=== PATIENT | male | born 1955 | race Hispanic/Latino ===

== ENCOUNTER 2017-04-10 12:23 | Day surgery (SDC) | payer BC ==
[2017-04-10 12:52] LABS: BASO # 0.02 K/mm3 (0.0-2.0); BASO % 0.3 % (0.0-3.0); EOS # 0.2 (0.0-0.7); EOS % 2.1 % (1.5-5.0); GRAN # 6.45 (1.4-6.5); GRAN % 81.1 % (50.0-68.0); HEMOGLOBIN 15.8 g/dL (14.0-18.0); LYMPH # 0.7 (1.2-3.4); LYMPH % 8.3 % (22.0-35.0); MEAN CELL VOLUME 93.9 fl (80.0-105.0); MEAN CORPUSCULAR HEMOGLOBIN 33.3 pg (25.0-35.0); MEAN CORPUSCULAR HGB CONC 35.4 g/dl (31.0-37.0); MEAN PLATELET VOLUME 10.7 fl (7.0-11.0); MONO # 0.7 (0.1-0.6); MONO % 8.2 % (1.0-6.0); RBC 4.75 10^6/uL (3.5-6.1); RED CELL DISTRIBUTION WIDTH 13.9 % (11.5-14.5)
[2017-04-10 12:59] VITALS: BMI 29.8
[2017-04-10 13:04] LABS: BLOOD UREA NITROGEN 21 mg/dL (7-21); GFR AFRICAN-AMERICAN > 60; GFR NON-AFRICAN AMERICAN 52
[2017-04-10 13:07] LABS: INR 1.05 (0.93-1.08); PARTIAL THROMBOPLASTIN TIME 33.5 Seconds (25.1-36.5); PROTHROMBIN TIME 12.1 SECONDS (9.4-12.5)
[2017-04-10 13:09] VITALS: RESP 20; TEMP 97; O2SAT 98
--- NOTE | 2017-04-10 16:11 | US ---
PROCEDURE: Ultrasound guided paracentesis. HISTORY: Alcoholic cirrhosis Recurrent ascites with abdominal pain and distension. PHYSICIAN(S): Lamine Man MD. TECHNIQUE: The relative risks and indications for the procedure were explained to the patient and informed written consent obtained. Sonography of the abdomen was performed in a supine position. This revealed a large amount of non-loculated ascites, greatest in the right lower quadrant. A puncture site was selected and the area was prepped and draped in the usual sterile fashion. 1% Xylocaine was used to anesthetize the skin and soft tissues. A 7 Anguillan paracentesis catheter was trocared into the right lower quadrantand 72132 cc of clear, straw-colored fluid aspirated. No labs were sent. IMPRESSION: Ultrasound-guided paracentesis in the right lower quadrant. 12,300 cc of fluid were aspirated. The frequency in volume of fluid encounter, a TIPS procedure should be considered for better control of the patient's ascites
[2017-04-10 16:52] VITALS: PULSE 92
[2017-04-10 17:00] VITALS: BP 103/65
== END 2017-04-10 17:00 | disposition home or self-care (01) ==
LOC: OPSURG 12:23
PROVIDERS: ATTEND Radiology Vascular & Interventional Radiology
DX: K70.31 Alcoholic cirrhosis of liver with ascites (principal)

== ENCOUNTER 2017-04-30 11:11 | Day surgery (SDC) | payer BC ==
[2017-04-30 12:18] LABS: BASO # 0.03 K/mm3 (0.0-2.0); BASO % 0.4 % (0.0-3.0); EOS # 0.3 (0.0-0.7); EOS % 3.9 % (1.5-5.0); GRAN # 5.7 (1.4-6.5); GRAN % 74.6 % (50.0-68.0); HEMOGLOBIN 15.4 g/dL (14.0-18.0); LYMPH # 0.8 (1.2-3.4); LYMPH % 10.9 % (22.0-35.0); MEAN CELL VOLUME 94.4 fl (80.0-105.0); MEAN PLATELET VOLUME 10.9 fl (7.0-11.0); MONO # 0.8 (0.1-0.6); MONO % 10.2 % (1.0-6.0); RBC 4.66 10^6/uL (3.5-6.1); WHITE BLOOD COUNT 7.6 10^3/ul (4.5-11.0)
[2017-04-30 12:21] VITALS: RESP 18; O2SAT 100
[2017-04-30 12:41] LABS: INR 1.07 (0.93-1.08); PARTIAL THROMBOPLASTIN TIME 32.5 Seconds (25.1-36.5); PROTHROMBIN TIME 12.3 SECONDS (9.4-12.5)
[2017-04-30 14:56] VITALS: TEMP 98.3
[2017-04-30 15:15] VITALS: BP 118/77; PULSE 84
--- NOTE | 2017-04-30 17:29 | US ---
PROCEDURE: Ultrasound guided paracentesis. HISTORY: Alcoholic cirrhosis Recurrent ascites with abdominal pain and distension. Requires frequent paracentesis PHYSICIAN(S): Lamine Man MD. TECHNIQUE: The relative risks and indications for the procedure were explained to the patient and informed written consent obtained. Sonography of the abdomen was performed in a supine position. This revealed a large amount of non-loculated ascites, greatest in the right lower quadrant. A puncture site was selected and the area was prepped and draped in the usual sterile fashion. 1% Xylocaine was used to anesthetize the skin and soft tissues. A 7 Swedish paracentesis catheter was trocared into the right lower quadrantand 27472 cc of clear, straw-colored fluid aspirated. No labs were sent IMPRESSION: Ultrasound-guided paracentesis in the right lower quadrant. 55559 cc of fluid were aspirated.
== END 2017-04-30 15:40 | disposition home or self-care (01) ==
LOC: SDS 11:11
PROVIDERS: ATTEND Radiology Vascular & Interventional Radiology
DX: K70.31 Alcoholic cirrhosis of liver with ascites (principal)

== ENCOUNTER 2017-05-15 10:17 | Day surgery (SDC) | payer BC ==
[2017-05-15 10:46] LABS: BASO # 0.03 K/mm3 (0.0-2.0); BASO % 0.4 % (0.0-3.0); EOS # 0.5 (0.0-0.7); GRAN # 5.72 (1.4-6.5); GRAN % 70.7 % (50.0-68.0); HEMOGLOBIN 15.8 g/dL (14.0-18.0); LYMPH # 1.1 (1.2-3.4); LYMPH % 13.3 % (22.0-35.0); MEAN CELL VOLUME 94.2 fl (80.0-105.0); MEAN CORPUSCULAR HEMOGLOBIN 32.9 pg (25.0-35.0); MEAN PLATELET VOLUME 10.5 fl (7.0-11.0); MONO # 0.8 (0.1-0.6); MONO % 9.6 % (1.0-6.0); RBC 4.8 10^6/uL (3.5-6.1); RED CELL DISTRIBUTION WIDTH 13.8 % (11.5-14.5); WHITE BLOOD COUNT 8.1 10^3/ul (4.5-11.0)
[2017-05-15 10:54] VITALS: RESP 18; O2SAT 97
[2017-05-15 10:58] LABS: CALCIUM 10.2 mg/dL (8.4-10.5)
[2017-05-15 11:01] LABS: INR 1.03 (0.93-1.08); PARTIAL THROMBOPLASTIN TIME 31.8 Seconds (25.1-36.5); PROTHROMBIN TIME 11.9 SECONDS (9.4-12.5)
[2017-05-15 13:58] VITALS: TEMP 98.3
--- NOTE | 2017-05-15 14:13 | US ---
PROCEDURE: Ultrasound guided paracentesis. HISTORY: Alcoholic cirrhosis. Recurrent ascites with abdominal pain and distension. Needs repeat paracentesis. PHYSICIAN(S): Lamine Man MD. TECHNIQUE: The relative risks and indications for the procedure were explained to the patient and informed written consent obtained. Sonography of the abdomen was performed in a supine position. This revealed a moderate to large amount of non-loculated ascites, greatest in the right lower quadrant. A puncture site was selected and the area was prepped and draped in the usual sterile fashion. 1% Xylocaine was used to anesthetize the skin and soft tissues. A 7 Italian paracentesis catheter was trocared into the right lower quadrantand 35512 cc of clear, straw-colored fluid aspirated. No labs were sent IMPRESSION: Ultrasound-guided paracentesis in the right lower quadrant. 43458 cc of fluid were aspirated.
[2017-05-15 14:29] VITALS: BP 95/58; PULSE 100
== END 2017-05-15 15:35 | disposition home or self-care (01) ==
LOC: OPSURG 10:17
PROVIDERS: ATTEND Radiology Vascular & Interventional Radiology
DX: K70.31 Alcoholic cirrhosis of liver with ascites (principal)

== ENCOUNTER 2017-11-13 14:44 | Inpatient (IN) | payer BC ==
[2017-11-13 14:52] VITALS: BMI 24.4
[2017-11-13] MEDS ORDERED: Sodium Chloride 0.9% 1,000 ML IV STA (15:43)
[2017-11-13] MEDS ORDERED: Oxycodone/Acetaminophen 5/325 mg Tab PO STA (15:43)
--- NOTE | 2017-11-13 16:03 | RAD ---
Date of service: 11/13/2017 HISTORY: sob COMPARISON: 06/12/2016 FINDINGS: LUNGS: There is some linear scarring or atelectasis in the left lower lobe. The lungs are otherwise clear PLEURA: No significant pleural effusion identified, no pneumothorax apparent. CARDIOVASCULAR: Normal. OSSEOUS STRUCTURES: Sternal wires VISUALIZED UPPER ABDOMEN: Normal. OTHER FINDINGS: None. IMPRESSION: No active disease.
[2017-11-13 16:04] LABS: BASO # 0.01 K/mm3 (0.0-2.0); BASO % 0.1 % (0.0-3.0); EOS # 0.1 (0.0-0.7); EOS % 0.6 % (1.5-5.0); GRAN # 13.97 (1.4-6.5); GRAN % 83.6 % (50.0-68.0); HEMOGLOBIN 13.6 g/dL (14.0-18.0); LYMPH % 5.8 % (22.0-35.0); MEAN CELL VOLUME 91.4 fl (80.0-105.0); MEAN CORPUSCULAR HEMOGLOBIN 32.3 pg (25.0-35.0); MEAN CORPUSCULAR HGB CONC 35.3 g/dl (31.0-37.0); MEAN PLATELET VOLUME 8.9 fl (7.0-11.0); MONO # 1.7 (0.1-0.6); MONO % 9.9 % (1.0-6.0); RBC 4.21 10^6/uL (3.5-6.1); RED CELL DISTRIBUTION WIDTH 16.5 % (11.5-14.5); WHITE BLOOD COUNT 16.7 10^3/ul (4.5-11.0)
[2017-11-13 16:12] LABS: ALB/GLOB RATIO 0.7 (1.1-1.8); ALBUMIN 3.5 g/dL (3.0-4.8); ALT/SGPT 25 U/L (7-56); AST/SGOT 39 U/L (17-59); BLOOD UREA NITROGEN 12 mg/dL (7-21); CALCIUM 9.3 mg/dL (8.4-10.5); GFR NON-AFRICAN AMERICAN > 60
[2017-11-13 16:24] LABS: B-TYPE NATRIURETIC PEPTIDE 290 pg/mL (0-450); TROPONIN I < 0.01 ng/mL
--- NOTE | 2017-11-13 16:41 | RAD ---
Date of service: 11/13/2017 PROCEDURE: Soft tissue neck HISTORY: left sided neck swelling COMPARISON: TECHNIQUE: Two views FINDINGS: There is no retropharyngeal soft tissue swelling. The airway is patent. IMPRESSION: Negative study
--- NOTE | 2017-11-13 16:42 | ED PDOC ---
Arrival/HPI - General Chief Complaint: Lower Extremity Problem/Injury Time Seen by Provider: 11/13/17 15:00 Historian: Patient, Spouse () - History of Present Illness Narrative History of Present Illness (Text): 11/13/17 17:00 A 62 y/o M w/ h/o liver disease( s/p tips procedure last week) presents to the emergency department complaining of generalized weakness for the past 3 days. Per , patient has been experiencing intermittent fever/chills, decreased PO intake of fluids/solids, odynophagia, and left-side neck swelling that has increased in size over the last [address] Zendejas, who sent patient a prescription of Amoxicillin, which patient has taken 1 dose of yesterday. He reports shortness of breath a rest. Patient denies any abdominal pain, hematemesis, chest pain, back pain, bilateral leg swelling, or any other complaints at this time. PMD: Dr. Zendejas Past Medical History - Provider Review Nursing Documentation Reviewed: Yes - Travel History Have you recently traveled outside [place] w/in the past 3 mons?: No - Infectious Disease Hx of Infectious Diseases: None - Cardiac Hx [place]: Yes Hx Pacemaker: No Other/Comment: aortic valve. open heart surgery - Pulmonary Hx Respiratory Disorders: No - Neurological Hx Paralysis: No - Endocrine/Metabolic Hx Diabetes Mellitus Type 2: Yes - Hematological/Oncological Hx Blood Transfusions: No - Musculoskeletal/Rheumatological Hx Musculoskeletal Disorders: Yes - Gastrointestinal Hx Gastrointestinal Ulcer: Yes Other/Comment: Liver problems - Psychiatric Hx Physical Abuse: No Hx Substance Use: No - Surgical History Hx Coronary Artery Bypass Graft: Yes Hx Open Heart Surgery: Yes Hx Orthopedic Surgery: Yes (L knee sx) Hx Valve Replacement: Yes (aortic) Other/Comment: TIPS - Anesthesia Hx Anesthesia: Yes Hx Anesthesia Reactions: No Hx Malignant Hyperthermia: No - Suicidal Assessment Feels Threatened In Home Enviroment: No Family/Social History - Physician Review Nursing Documentation Reviewed: Yes Family/Social History: No Known Family HX Smoking Status: Former Smoker Hx Alcohol Use: No Hx Substance Use: No Allergies/Home Meds Allergies/Adverse Reactions: Allergies No Known Allergies Allergy (Verified 11/13/17 21:16) Home Medications: Home Meds Medication Instructions Recorded Confirmed Aspirin [Adult Low Dose Aspirin EC] 81 mg PO DAILY 06/12/16 11/13/17 Allopurinol [Zyloprim] 100 mg PO DAILY 04/10/17 11/13/17 Alprazolam [Xanax] 0.5 mg PO Q12H PRN 04/10/17 11/13/17 Pantoprazole [Protonix] 40 mg PO DAILY 04/10/17 11/13/17 metFORMIN [glucOPHAGE] 500 mg PO DAILY 04/10/17 11/13/17 Lactulose [Enulose] 20 g PO BID 11/13/17 11/13/17 Rifaximin [Xifaxan] 1 tab PO Q12H 11/13/17 11/13/17 Review of Systems - Physician Review All systems were reviewed & negative as marked: Yes - Review of Systems Constitutional: Fevers, Night Sweats, Other (generalized weakness) ENT: Other (left-side neck swelling that has increased in size for the past couple of days; difficluty swallowing.) Respiratory: SOB (at rest) Cardiovascular: absent: Chest Pain Gastrointestinal: Appetite Changes (decrease in PO intake of fluids/solids). absent: Abdominal Pain, Hematemesis Musculoskeletal: absent: Back Pain, Other (no leg swelling) Physical Exam Vital Signs Pulse Pulse Resp BP Pulse Ox 11/13/17 21:17 92 H 96 H 18 129/76 11/13/17 19:15 92 H 18 129/76 97 11/13/17 16:45 96 H 18 94/70 L 98 Temperature: Afebrile Blood Pressure: Normal Pulse: Tachycardic Respiratory Rate: Normal Appearance: Positive for: Well-Appearing, Non-Toxic, Uncomfortable Pain Distress: Moderate Mental Status: Positive for: Alert and Oriented X 3 - Systems Exam Head: Present: Atraumatic, Normocephalic Pupils: Present: PERRL Extroacular Muscles: Present: EOMI Conjunctiva: Present: Normal Mouth: Present: Moist Mucous Membranes Neck: Present: Other (left-side neck mass tender to palpation, no erythema, not mobile) Respiratory/Chest: Present: Clear to Auscultation (bilaterally), Good Air Exchange. No: Respiratory Distress, Accessory Muscle Use, Wheezes, Rales, Rhonchi Cardiovascular: Present: Tachycardic Abdomen: No: Tenderness, Distention, Peritoneal Signs Back: Present: Normal Inspection Upper Extremity: Present: Normal Inspection. No: Cyanosis, Edema Lower Extremity: Present: Normal Inspection. No: Edema Neurological: Present: GCS=15, CN II-XII Intact, Speech Normal Skin: Present: Warm, Dry, Normal Color. No: Rashes Psychiatric: Present: Alert, Oriented x 3, Normal Insight, Normal Concentration Medical Decision Making ED Course and Treatment: 11/13/17 16:45 Impression: 62 year old male with generalized weakness and left-side neck swelling that has been increasing in size for the past couple of days. Plan: -- EKG -- Chest X-ray -- Soft Tissue Neck X-Ray -- Neck Soft Tissue CT -- Zosyn -- IV Fluids -- Percocet -- Labs -- Rapid Strep Test -- Urinalysis -- Reassess and disposition Prior Visits: Notes and results from previous visits were reviewed. Progress Notes: 11/13/2017 16:02 Chest X-ray IMPRESSION: No active disease. Dictator: Grant Zamora MD 11/13/2017 16:39 Soft Tissue Neck X-Ray IMPRESSION: Negative study. Dictator: Grant Zamora MD 11/13/17 17:08 Labs reviewed with elevated potassium and leukocytosis. Zosyn ordered. CT neck pending. Spoke to Dr. Yen(PCP) who accepts patient onto his service. - Lab Interpretations Lab Results: 11/13/17 15:40 11/13/17 15:40 Lab Results 11/13/17 15:49: POC Glucose (mg/dL) 226 H 11/13/17 15:40: Sodium 132, Potassium 5.3 H, Chloride 95 L, Carbon Dioxide 24, Anion Gap 18, BUN 12, Creatinine 0.8, Est GFR ( Amer) > 60, Est GFR (Non- Af Amer) > 60, Random Glucose 212 H, Calcium 9.3, Total Bilirubin 2.7 H, AST 39 , ALT 25, Alkaline Phosphatase 174 H, Troponin I < 0.01, NT-Pro-B Natriuret Pep 290, Total Protein 8.4 H, Albumin 3.5, Globulin 4.9, Albumin/Globulin Ratio 0.7 L 11/13/17 15:40: WBC 16.7 H D, RBC 4.21, Hgb 13.6 L D, Hct 38.5 L, MCV 91.4, MCH 32.3, MCHC 35.3, RDW 16.5 H, Plt Count 141, MPV 8.9, Gran % 83.6 H, Lymph % ( Auto) 5.8 L, [place] % (Auto) 9.9 H, Eos % (Auto) 0.6 L, Baso % (Auto) 0.1, Gran # 13.97 H, Lymph # (Auto) 1.0 L, [place] # (Auto) 1.7 H, Eos # (Auto) 0.1, Baso # ( Auto) 0.01, ESR 104 H - RAD Interpretation Radiology Orders: 11/13/17 15:13 CHEST PORTABLE [RAD] Stat 11/13/17 15:50 NECK SOFT TISSUE [RAD] Stat - Medication Orders Current Medication Orders: Discontinued Medications Albuterol Sulfate (Albuterol 0.083% Inhal Sona (2.5 Mg/3 Ml) Ud) 2.5 mg INH STAT STA Stop: 11/13/17 18:37 Last Admin: 11/13/17 19:16 Dose: 2.5 mg Diphenhydramine HCl (Benadryl) 25 mg PO ONCE ONE Stop: 11/13/17 21:41 Sodium Chloride (Sodium Chloride 0.9%) 1,000 mls @ 999 mls/hr IV .Q1H1M STA Stop: 11/13/17 16:43 Last Admin: 11/13/17 16:03 Dose: 999 mls/hr eMAR Start Stop Document 11/13/17 16:03 GMD (Rec: 11/13/17 16:03 GMD [id number]) Intravenous Solution Start Date 11/13/17 Start Time 16:03 End Date 11/13/17 End time 17:03 Total Infusion Time 60 Piperacillin Sod/Tazobactam Sod (Zosyn 4.5 Gm In Ns 100ml) 4.5 gm in 100 mls @ 200 mls/hr IVPB STAT STA PRN Reason: Protocol Stop: 11/13/17 17:32 Last Admin: 11/13/17 18:38 Dose: 200 mls/hr eMAR Start Stop Document 11/13/17 18:38 GMD (Rec: 11/13/17 18:38 GMD [id number]) Intravenous Solution Start Date 11/13/17 Start Time 18:38 End Date 11/13/17 End time 19:08 Total Infusion Time 30 Calcium Gluconate 1,000 mg/ (Sodium Chloride) 110 mls @ 110 mls/hr IVPB ONCE ONE Stop: 11/13/17 19:44 Last Admin: 11/13/17 19:30 Dose: 110 mls/hr eMAR Start Stop Document 11/13/17 19:30 AD (Rec: 11/13/17 19:30 AD [id number] Intravenous Solution Start Date 11/13/17 Start Time 19:30 Ibuprofen (Motrin Tab) 400 mg PO ONCE ONE Stop: 11/13/17 20:31 Oxycodone/Acetaminophen (Percocet 5/325 Mg Tab) 1 tab PO STAT STA Stop: 11/13/17 15:44 Last Admin: 11/13/17 16:03 Dose: 1 tab MAR Pain Assessment Document 11/13/17 16:03 GMD (Rec: 11/13/17 16:03 GMD [id number]) Pain Reassessment Is this a pain reassessment? No Sodium Bicarbonate (Sodium Bicarbonate 8.4% (50 Meq) Syringe) 50 meq IVP ONCE ONE Stop: 11/13/17 18:37 Last Admin: 11/13/17 19:16 Dose: 50 meq IVP Administration Document 11/13/17 19:16 AD (Rec: 11/13/17 19:17 AD [id number] Charges for Administration # of IVP Administrations 1 - Scribe Statement The provider has reviewed the documentation as recorded by the Lenora Martin Provider Scribe Provider Scribe Attestation: All medical record entries made by the Berylibamy were at my direction and personally dictated by me. I have reviewed the chart and agree that the record accurately reflects my personal performance of the history, physical exam, medical decision making, and the department course for this patient. I have also personally directed, reviewed, and agree with the discharge instructions and disposition. Disposition/Present on Arrival - Present on Arrival Any Indicators Present on Arrival: No History of DVT/PE: No History of Uncontrolled Diabetes: No Urinary Catheter: No History of Decub. Ulcer: No History Surgical Site Infection Following: None - Disposition Have Diagnosis and Disposition been Completed?: Yes Diagnosis: Neck swelling, Shortness of breath, Hyperkalemia Disposition: HOSPITALIZED Disposition Time: 18:30 Patient Plan: Admission Patient Problems: Current Active Problems Problem Status Onset Neck swelling Acute Shortness of breath Acute Hyperkalemia Acute Condition: FAIR
[2017-11-13] MEDS ORDERED: Piperacill/Tazo 4.5gm in NS 4.5 GM/100 ML BAG IVPB STA (17:03)
[2017-11-13 17:54] LABS: URINE BILIRUBIN NEGATIVE (NEGATIVE); URINE BLOOD LARGE (NEGATIVE); URINE GLUCOSE (UA) 250 mg/dL (NEGATIVE); URINE LEUKOCYTE ESTERASE NEGATIVE Leu/uL (NEGATIVE); URINE PROTEIN 30 mg/dL (<30 mg/dL)
[2017-11-13 17:55] LABS: URINE APPEARANCE CLEAR (CLEAR); URINE COLOR DARK YELLOW (YELLOW)
[2017-11-13 18:02] LABS: URINE AMORPHOUS SEDIMENT FEW; URINE BACTERIA MANY (NEG); URINE RBC 25 - 30 /hpf (0-2)
[2017-11-13] MEDS ORDERED: Sodium Bicarbonate (8.4%) 50 Meq Syringe IVP ONE ×2 (18:36→19:12)
[2017-11-13] MEDS ORDERED: Albuterol 0.083% Inhal Sol (2.5 mg/3 mL) UD INH STA (18:36)
[2017-11-13] MEDS: Dextrose 5%/0.45% NS 1,000 ML IV SCH (23:02)
[2017-11-13] MEDS ORDERED: MethylPREDNISolone 40 mg Vial IVP STA (23:33)
[2017-11-14] MEDS: Piperacill/Tazo 4.5gm in NS 4.5 GM/100 ML BAG IVPB SCH ×2 (00:55→05:40)
[2017-11-14 06:40] LABS: EOS % 0.1 % (1.5-5.0); GRAN # 11.21 (1.4-6.5); GRAN % 93.8 % (50.0-68.0); HEMOGLOBIN 12.2 g/dL (14.0-18.0); LYMPH # 0.5 (1.2-3.4); LYMPH % 4.1 % (22.0-35.0); MEAN CELL VOLUME 92.2 fl (80.0-105.0); MEAN CORPUSCULAR HEMOGLOBIN 31.9 pg (25.0-35.0); MEAN CORPUSCULAR HGB CONC 34.6 g/dl (31.0-37.0); MEAN PLATELET VOLUME 9.5 fl (7.0-11.0); MONO # 0.2 (0.1-0.6); PLATELET COUNT 105 10^3/uL (120.0-450.0); RBC 3.83 10^6/uL (3.5-6.1); RED CELL DISTRIBUTION WIDTH 16.4 % (11.5-14.5)
[2017-11-14 06:50] LABS: ALB/GLOB RATIO 0.6 (1.1-1.8); ALBUMIN 2.5 g/dL (3.0-4.8); ALT/SGPT 26 U/L (7-56); AST/SGOT 27 U/L (17-59); BLOOD UREA NITROGEN 14 mg/dL (7-21); CALCIUM 8.7 mg/dL (8.4-10.5); GFR NON-AFRICAN AMERICAN > 60; URIC ACID 2.3 mg/dL (3.5-8.5)
[2017-11-14] MEDS: Insulin Reg-MEDIUM-Coverage SC SCH ×4 (07:54→22:00)
[2017-11-14] MEDS: Pantoprazole 40 mg EC Tab PO SCH (07:55)
[2017-11-14] MEDS: Dextrose 5%/0.45% NS 1,000 ML IV SCH ×2 (07:57→15:00)
[2017-11-14 09:17] LABS: LYMPHOCYTE 1 % (22.0-35.0); MONOCYTE 1 % (1.0-6.0); NEUTROPHIL 98 % (50.0-70.0); PLATELET ESTIMATE LOW (NORMAL)
[2017-11-14 09:32] LABS: ERYTHROCYTE SEDIMENTATION RATE 98 mm/hr (0.00-15.0)
[2017-11-14] MEDS: Meropenem IV 1 gm in NS 50 ML IVPB SCH ×3 (10:16→22:35)
--- NOTE | 2017-11-14 10:39 | CARD ---
APPROVED REPORT Date of service: 11/13/2017 EKG Measurement Heart [id number] <Conclusion> Sinus tachycardia Small inferior q waves
--- NOTE | 2017-11-14 12:46 | CT ---
Date of service: 11/13/2017 PROCEDURE: CT NECK WITHOUT CONTRAST HISTORY: neck swelling w/ odyophagia COMPARISON: None available. TECHNIQUE: CT of the neck without intravenous contrast. Coronal and sagittal reformats generated. Radiation dose: DLP 433 mGy-cm This CT exam was performed using one or more of the following dose reduction techniques: Automated exposure control, adjustment of the mA and/or kV according to patient size, and/or use of iterative reconstruction technique. FINDINGS: NASOPHARYNX: Unremarkable. SUPRAHYOID NECK: There is soft tissue swelling and edema in the left parapharyngeal space adjacent to the left carotid and jugular vein. The study is limited without IV contrast. This could be neoplastic or infectious in origin. Clinical correlation is suggested INFRAHYOID NECK: Unremarkable larynx, hypopharynx, and supraglottic space. Vocal cords intact. MASS: None. GLANDS: Parotid and submandibular glands unremarkable. Normal size thyroid gland, without nodule. LYMPH NODES: Normal. No lymphadenopathy. CERVICAL SPINE: No fracture or focal lesion. OTHER FINDINGS: The report concurs with the preliminary [facility] report IMPRESSION: There is soft tissue swelling and edema in the left parapharyngeal space adjacent to the left carotid and jugular vein. The study is limited without IV contrast. This could be neoplastic or infectious in origin. Clinical correlation is suggested
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
--- NOTE | 2017-11-14 19:26 | CON ---
Copied To: Janak Dallas MD Attending MD: Janak Dallas MD DATE: 11/14/2017 LOCATION: The patient seen in room 265, bed 1. CHIEF COMPLAINT: Neck pain and difficulty swallowing times several days. HISTORY OF PRESENT ILLNESS: This is a 62-year-old male with a history of diabetes and hypertension, and coronary artery disease, aortic valve replacement, coronary artery bypass graft; the patient also with a knee surgery, alcoholic liver disease and cirrhosis; the patient also had a TIPS procedure in the past, awaiting for a liver transplant, who was admitted with neck pain and difficulty swallowing times almost a week duration. He is also complaining of shortness of breath but no chest pain. The patient was seen in the emergency room by Dr. Rex Land, who states the patient has a chief complaint of lower extremity injury. Patient with liver disease and status post TIPS procedure, presented in emergency, generalized weakness, experiencing intermittent fevers and chills, although he denies that to me. The patient's told the emergency room doctor as he is having difficulty swallowing and left-sided neck pain in the last several days, the patient told me was over a week. The patient was given amoxicillin as outpatient, taken the dose day before admission. He is complaining of shortness of breath. REVIEW OF SYSTEMS: A 12-point review of systems is performed. PAST MEDICAL HISTORY: Significant for hypertension, diabetes, coronary artery disease, alcoholic liver disease, liver cirrhosis. PAST SURGICAL HISTORY: Significant for aortic valve replacement, coronary artery bypass graft, knee surgery, and a TIPS procedure. ALLERGIES: THE PATIENT HAS NO KNOWN ALLERGIES. MEDICATIONS AT HOME: Include aspirin, allopurinol, Xanax, Protonix, metformin, rifaximin, and lactulose. PHYSICAL EXAMINATION: GENERAL: He is in bed, in no acute distress. However, chronically ill, debilitated. VITAL SIGNS: Temperature is 99 with a heart rate of 110, respiratory rate is 20, blood pressure is 90/50. HEENT: There is left-sided neck pain and swelling and oral cavity appears to be normal. There is no pharyngitis. No erythema. Pupils are equally reactive to light and accommodation. Extraocular muscles intact. Conjunctiva is pink. Sclerae is nonicteric. NECK: Supple. LUNGS: Have decreased breath sounds. HEART: Normal S1, S2. ABDOMEN: Soft, nontender. LABORATORY EXAMINATION: Reveals a white count of 16,700, hemoglobin of 13, platelets of 141. Sed rate is 104. Chemistries reveals a BUN of 12, creatinine of 0.8, alk phos is 174. Urinalysis is noted 1 to 3 wbc's. Serology is for group A strep is negative in rapid test. Microbiology is pending. Throat cultures have been sent. Alk phos is elevated, but the LFTs were normal. Urinalysis is noted. Sed rate is 104. The patient's white count of 16,000. IMAGING STUDIES: The patient had a CAT scan of the neck, the results are not available. ASSESSMENT AND PLAN: A 62-year-old male with hypertension, diabetes, coronary artery disease, aortic valve replacement and alcoholic liver disease who was admitted with sore throat, neck mass and pain and difficulty swallowing, who has alcoholic liver cirrhosis, now presenting with leukocytosis and tachycardia. Systemic inflammatory response syndrome with most rule out retropharyngeal abscess with a white count of 16,000 and tachycardia. We will treat the patient with meropenem, pending blood culture, throat cultures. We will order an human immunodeficiency virus because of his age and awaiting for CAT scan results. In addition to his streptococcal pharyngitis and retroperitoneal abscess, viral pharyngitis is also possibility, although white count of 16,000 is less likely in addition to group A streptococcus. Fusobacterium necrophorum in the differential diagnosis which can give you Lemierre syndrome with jugular venous thrombosis mycoplasma usually associated with cough and severely sexually transmitted disease related, although this patient who is and in a monogamous relationship be less likely. We will follow closely with you and we will make further recommendations. Awaiting for culture and CAT scan results. Janak Dallas MD
[2017-11-15] MEDS: Meropenem IV 1 gm in NS 50 ML IVPB SCH ×3 (06:12→22:10)
[2017-11-15 07:04] LABS: BASO # 0.01 K/mm3 (0.0-2.0); BASO % 0.1 % (0.0-3.0); EOS % 0.1 % (1.5-5.0); GRAN # 14.95 (1.4-6.5); GRAN % 90.4 % (50.0-68.0); HEMOGLOBIN 12.5 g/dL (14.0-18.0); LYMPH # 0.8 (1.2-3.4); LYMPH % 4.8 % (22.0-35.0); MEAN CELL VOLUME 92.1 fl (80.0-105.0); MEAN CORPUSCULAR HEMOGLOBIN 32.1 pg (25.0-35.0); MEAN CORPUSCULAR HGB CONC 34.8 g/dl (31.0-37.0); MEAN PLATELET VOLUME 9.6 fl (7.0-11.0); MONO # 0.8 (0.1-0.6); MONO % 4.6 % (1.0-6.0); RBC 3.9 10^6/uL (3.5-6.1); RED CELL DISTRIBUTION WIDTH 16.6 % (11.5-14.5); WHITE BLOOD COUNT 16.5 10^3/ul (4.5-11.0)
[2017-11-15 07:38] LABS: ALB/GLOB RATIO 0.6 (1.1-1.8); ALBUMIN 2.7 g/dL (3.0-4.8); ALT/SGPT 29 U/L (7-56); AST/SGOT 28 U/L (17-59); BLOOD UREA NITROGEN 16 mg/dL (7-21); CALCIUM 9.3 mg/dL (8.4-10.5); GFR NON-AFRICAN AMERICAN > 60
[2017-11-15] MEDS: Sodium Chloride 0.45% 1,000 ML IV SCH (08:08)
[2017-11-15] MEDS: Insulin Reg-MEDIUM-Coverage SC SCH ×4 (08:20→22:10)
[2017-11-15] MEDS: Pantoprazole 40 mg EC Tab PO SCH (08:20)
--- NOTE | 2017-11-15 08:50 | CP.PCM.CON ---
History of Present Illness - History of Present Illness History of Present Illness: Consultation for Dr. Ferrari. Patient seen and examined with Dr. Ferrari 62 F with pmhx diabetes, hypertension, CAD, cirrhosis waiting on liver transplant admitted to the hospital with neck pain and difficultly swallowing. Patient was seen in office approximately 2 weeks ago c/o of low back pain and right knee pain with pain with ambulation for several weeks while in [place]. Patient was given a cortisone injection in the right knee in our office. Spoke with patients on Sunday night, she states patient was still complaining of calf and posterior knee pain and was unable to ambulate due to the pain. Venous Doppler was completed prior which was negative for any DVT's. MRI was our next step. Patient today denies any neck pain, difficulty swallowing, cp, SOB, low back pain, numbness tingling, or knee pain. Patient states since yesterday he has been able to ambulate without any difficulties. He complains today of right ankle pain with increasing spots over his ankles as well as upper extremities that are painful. He denies any itching or burning. Review of Systems - Constitutional Constitutional: As Per HPI - EENT Nose/Mouth/Throat: As Per HPI - Cardiovascular Cardiovascular: As Per HPI - Musculoskeletal Musculoskeletal: As Per HPI Additional comments: denies any knee pain. Complains of right ankle pain - Integumentary Integumentary: Lesions - Neurological Neurological: As Per HPI - Psychiatric Psychiatric: As Per HPI - Endocrine Endocrine: As Per HPI - Hematologic/Lymphatic Hematologic: As Per HPI Past Patient History - Infectious Disease Hx of Infectious Diseases: None - Past Social History Smoking Status: Former Smoker - CARDIAC Hx Heart Attack: Yes Hx Pacemaker: No Other/Comment: aortic valve. open heart surgery - PULMONARY Hx Respiratory Disorders: No - NEUROLOGICAL Hx Paralysis: No - HEENT Hx HEENT Problems: Yes - ENDOCRINE/METABOLIC Hx Diabetes Mellitus Type 2: Yes - HEMATOLOGICAL/ONCOLOGICAL Hx Blood Transfusions: No - MUSCULOSKELETAL/RHEUMATOLOGICAL Hx Musculoskeletal Disorders: Yes - GASTROINTESTINAL Other/Comment: Liver problems - PSYCHIATRIC Hx Physical Abuse: No Hx Substance Use: No - SURGICAL HISTORY Hx Coronary Artery Bypass Graft: Yes Hx Open Heart Surgery: Yes Hx Orthopedic Surgery: Yes (L knee sx) Hx Valve Replacement: Yes (aortic) Other/Comment: TIPS - ANESTHESIA Hx Anesthesia: Yes Hx Anesthesia Reactions: No Hx Malignant Hyperthermia: No Meds Allergies/Adverse Reactions: Allergies Allergy/AdvReac Type Severity Reaction Status Date / Time No Known Allergies Allergy Verified 11/13/17 21:16 - Medications Medications: Current Medications Acetaminophen (Tylenol 325mg Tab) 650 mg PO Q6H PRN PRN Reason: Fever >100.4 F Alprazolam (Xanax) 0.5 mg PO Q6 PRN PRN Reason: Anxiety Stop: 11/21/17 00:01 Last Admin: 11/14/17 22:35 Dose: 0.5 mg Furosemide (Lasix) 40 mg PO DAILY [facility] Meropenem (Merrem Iv 1 Gm Premix) 50 mls @ 100 mls/hr IVPB Q8 KEKE PRN Reason: Protocol Stop: 11/23/17 08:04 Last Admin: 11/15/17 06:12 Dose: 100 mls/hr Sodium Chloride (Sodium Chloride 0.45%) 1,000 mls @ 80 mls/hr IV .[id number] [facility] Last Admin: 11/15/17 08:08 Dose: 80 mls/hr Insulin Human Regular (Humulin R Med) 0 units SC ACHS KEKE PRN Reason: Protocol Last Admin: 11/15/17 08:20 Dose: 3 units Lactulose (Enulose) 30 gm PO BID [facility] Last Admin: 11/14/17 22:35 Dose: 30 gm Metformin HCl (Glucophage) 500 mg PO DAILY [facility] Last Admin: 11/14/17 10:16 Dose: 500 mg Pantoprazole Sodium (Protonix Ec Tab) 40 mg PO ACB [facility] Last Admin: 11/15/17 08:20 Dose: 40 mg Tramadol HCl (Ultram) 50 mg PO TID PRN PRN Reason: Pain, moderate (4-7) Last Admin: 11/14/17 16:25 Dose: 50 mg Physical Exam - Constitutional Appears: Well, No Acute Distress - Head Exam Head Exam: ATRAUMATIC, NORMOCEPHALIC - Neck Exam Neck exam: Positive for: Full Rom - Respiratory Exam Respiratory Exam: NORMAL BREATHING PATTERN - Extremities Exam Additional comments: Right knee: skin intact. No obvious swelling. No areas of tenderness to palpation. Patient tolerating full active range of motion without pain. Patient can perform straight leg raise. Calf and thigh are soft and non-tender. R ankle shows no obvious swelling. There are multiple purpura lesions over right ankle as well as left ankle that are painful to palpation. Lesions are also beginning to form over right upper extremity.Patient tolerating active range of motion with dorsiflexion and plantar flexion with pain. Results - Vital Signs Recent Vital Signs: Last Vital Signs Temp 98.6 F 11/15/17 06:00 Pulse 82 11/15/17 06:00 Resp 16 11/15/17 06:00 BP 120/74 11/15/17 06:00 Pulse Ox 98 11/15/17 06:00 - Labs Result Diagrams: 11/15/17 06:00 11/15/17 06:00 Labs: Laboratory Results - last 24 hr 11/14/17 11/14/17 11/14/17 05:45 09:25 16:31 WBC RBC Hgb Hct MCV MCH MCHC RDW Plt Count MPV Gran % Lymph % (Auto) Colbert % (Auto) Eos % (Auto) Baso % (Auto) Gran # Lymph # (Auto) Colbert # (Auto) Eos # (Auto) Baso # (Auto) Neutrophils % (Manual) 98 H Lymphocytes % (Manual) 1 L Monocytes % (Manual) 1 Platelet Evaluation Low ESR 98 H Sodium Potassium Chloride Carbon Dioxide Anion Gap BUN Creatinine Est GFR ( Amer) Est GFR (Non-Af Amer) POC Glucose (mg/dL) 281 H Random Glucose Calcium Phosphorus Magnesium Total Bilirubin AST ALT Alkaline Phosphatase Total Protein Albumin Globulin Albumin/Globulin Ratio HIV 1&2 Ag/Ab, 4th Gen Nonreactive 11/14/17 11/15/17 11/15/17 21:14 06:00 06:00 WBC 16.5 H D RBC 3.90 Hgb 12.5 L Hct 35.9 L MCV 92.1 MCH 32.1 MCHC 34.8 RDW 16.6 H Plt Count 145 MPV 9.6 Gran % 90.4 H Lymph % (Auto) 4.8 L Colbert % (Auto) 4.6 Eos % (Auto) 0.1 L Baso % (Auto) 0.1 Gran # 14.95 H Lymph # (Auto) 0.8 L Colbert # (Auto) 0.8 H Eos # (Auto) 0.0 Baso # (Auto) 0.01 Neutrophils % (Manual) Lymphocytes % (Manual) Monocytes % (Manual) Platelet Evaluation ESR Sodium 138 Potassium 4.9 Chloride 101 Carbon Dioxide 27 Anion Gap 15 BUN 16 Creatinine 0.7 L Est GFR ( Amer) > 60 Est GFR (Non-Af Amer) > 60 POC Glucose (mg/dL) 280 H Random Glucose 208 H Calcium 9.3 Phosphorus 3.4 Magnesium 2.2 Total Bilirubin 1.3 AST 28 ALT 29 Alkaline Phosphatase 142 H Total Protein 7.0 Albumin 2.7 L Globulin 4.3 Albumin/Globulin Ratio 0.6 L HIV 1&2 Ag/Ab, 4th Gen Assessment & Plan (1) Knee pain, right Assessment and Plan: MRI of right knee ordered. X-rays of right ankle ordered Patient on IV abx per ID elevated ESR uric acid level 2.3 Will follow up with results At this point, symptoms appear to be systemic. Will discuss with medical team Status: Acute
--- NOTE | 2017-11-15 11:07 | PN ---
Copied To: Janak Dallas MD Attending MD: Janak Dallas MD DATE: 11/15/2017 SUBJECTIVE: The patient is in bed in no acute distress, nontoxic. PHYSICAL EXAMINATION: VITAL SIGNS: Temperature is 98, blood pressure is 120/70, respiratory rate of 16. HEENT: Unremarkable. NECK: Supple. LUNGS: Have decreased breath sounds. HEART: Normal S1, S2. ABDOMEN: Soft, nontender. LABORATORY EXAMINATION: Reveals a white count of 16,000, hemoglobin of 12. Chemistries reveals a BUN of 16, creatinine of 0.7. Urinalysis is noted and HIV is negative and microbiology, no strep was isolated. CAT scan is reviewed and consultation by Lillie Esparza is reviewed and ENT consultation is still pending. ASSESSMENT AND PLAN: A 62-year-old male who was seen earlier today in 265, bed 1 who was admitted with neck pain, neck swelling and difficulty swallowing, who has a history of diabetes mellitus, hypertension, coronary artery disease, aortic valve replacement, coronary artery bypass graft, has had knee surgery, alcoholic liver disease and cirrhosis, had a TIPS procedure, awaiting for transplant, and who was admitted with sepsis and with tachycardia, leukocytosis with pharyngitis and edema in the left parapharyngeal space and left carotid and jugular vein, currently on meropenem. Human immunodeficiency virus negative and group A strep workup negative. Awaiting for blood cultures and ENT consultation. The patient is doing much better. Janak Dallas MD
--- NOTE | 2017-11-15 12:37 | PN ---
Copied To: Grant Zendejas MD Attending MD: Grant Zendejas MD DATE: 11/14/2017 SUBJECTIVE: The patient is a 62-year-old male who was admitted with sore throat, neck swelling and sepsis. The patient also complained of leg pains, practical inability to walk. He is known to have a past medical history positive for hypertension, [id number] diabetes mellitus, hypercholesterolemia. He has a history of coronary artery disease, bioprosthetic valve replacement, coronary artery bypass grafting. He also has a history of cirrhosis status post TIPS procedure in 05/2007. He was admitted. He is treated with Glucophage, insulin coverage, Lasix. He was treated with Merrem 1 g for his sepsis and sore throat. When seen this evening, he is feeling much better. His leg pain has gone. He was able to walk to the bathroom. His is at bedside. His respirations are easy and relaxed. He states that his lactulose be restarted. He says he was taking 30 mg twice a day in the past for possible hepatic encephalopathy and had been working well in the past. Therefore, I will reorder this for him. His neck swelling has markedly decreased. He appears the neck is normal and symmetrical at this time. His lungs are clear. Heart is regular. Abdomen is soft and nontender. Skin reveals some ecchymotic areas in the posterior distal legs bilaterally. The patient claimed that they were not there previously. They just appeared within the last day or so. LABORATORY DATA: Reveal the white blood cell count to be 12, hemoglobin and hematocrit of 12.2 and 35.3, platelet count is 105. Sodium is 134, potassium is 5, blood urea nitrogen is 14, creatinine is 0.8, platelet count is 281. Sedimentation rate is markedly elevated at 98. His vital signs are stable. So at this point, we are continuing his current medications. I will be asking Dr. Rosen to consult, his size changer who knows him from his past cirrhosis history. He is also being followed by Dr. Dallas and Dr. Ferrari who had seen the patient and injected his right knee in the past for the pain. I am concerned about the ecchymotic areas on his ankles. A repeat blood work is ordered for the morning to follow the platelet count. I am also considering ordering fibrin, fibrinogen, fibrin split products and D-dimer to rule out early onset DIC. We are continuing to follow the patient closely and he will be reevaluated in the morning. Grant Zendejas MD
[2017-11-15 13:30] LABS: INR 1.25; PROTHROMBIN TIME 14.4 SECONDS (9.4-12.5)
--- NOTE | 2017-11-15 13:34 | RAD ---
Date of service: 11/15/2017 PROCEDURE: Right Ankle Radiographs. HISTORY: ankle pain COMPARISON: None FINDINGS: BONES: Normal. No fracture. JOINTS: Normal. No osteoarthritis. Ankle mortise maintained. Talar dome intact SOFT TISSUES: Normal. OTHER FINDINGS: None. IMPRESSION: Normal right ankle radiographs.
--- NOTE | 2017-11-15 13:36 | MRI ---
Date of service: 11/15/2017 PROCEDURE: MRI Right Knee HISTORY: Pain. COMPARISON: None available. TECHNIQUE: Multiecho multiplanar sequences were performed through the right knee. FINDINGS: ANTERIOR CRUCIATE LIGAMENT:: Intact. POSTERIOR CRUCIATE LIGAMENT:: Intact. MEDIAL MENISCUS:: Intact. LATERAL MENISCUS:: Intact. MEDIAL COLLATERAL LIGAMENT:: Intact. LATERAL COLLATERAL LIGAMENT COMPLEX:: Intact. QUADRICEPS TENDON:: Intact. PATELLAR TENDON:: Intact. CARTILAGE:: There is thinning of the patellar cartilage along the medial facet JOINT FLUID:: There is a small joint effusion. Small cysts are seen in the intercondylar notch posterior to the PCL. These are of doubtful significance. OSSEOUS STRUCTURES:: Intact. OTHER FINDINGS: There is a small fluid collection in the medial head of the gastrocnemius muscle measuring at 33 mm in length by 8 mm AP x 15 mm wide. This is most likely a muscular tear. IMPRESSION: Small muscular tear in the medial head of the gastrocnemius muscle.
--- NOTE | 2017-11-15 13:44 | CP.PCM.CON ---
<Jerson Zapata - Last Filed: 11/16/17 06:39> History of Present Illness - History of Present Illness History of Present Illness: ENT Consult Note for Dr. Marshall Reason for consult: Left neck pain and swelling 62 year old male with a past medical history that includes for decompensated liver cirrhosis s/p TIPS, esophageal varices, portal hypertensive gastropathy, CAD s/p CABG, s/p valve replacement, HLD, HTN, DM2, GERD and gout who was admitted for with neck swelling and dysphagia for four days. Patient reports that he first noticed sore throat and talked to PMD who prescribed Amoxicillin. He took two days of this medication without improvement. He reports that he has difficulty with both solids and liquids but less so with liquids. Today, he states that symptoms have greatly improved. He is able to tolerate liquids. Denies any recent illness or sick contacts. Denies fevers/chills, headache, chest pain, palpitations, SOB, constipation, diarrhea, hematemesis, melena, hematochezia, urinary symptoms. PMD: Dr. 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 open heart surgery - PULMONARY Hx Respiratory Disorders: No - NEUROLOGICAL Hx Paralysis: No - HEENT Hx HEENT Problems: Yes - ENDOCRINE/METABOLIC Hx Diabetes Mellitus Type 2: Yes - HEMATOLOGICAL/ONCOLOGICAL Hx Blood Transfusions: No - MUSCULOSKELETAL/RHEUMATOLOGICAL Hx Musculoskeletal Disorders: Yes - GASTROINTESTINAL Other/Comment: Liver problems - PSYCHIATRIC Hx Physical Abuse: No Hx Substance Use: No - SURGICAL HISTORY Hx Coronary Artery Bypass Graft: Yes Hx Open Heart Surgery: Yes Hx Orthopedic Surgery: Yes (L knee sx) Hx Valve Replacement: Yes (aortic) Other/Comment: TIPS - ANESTHESIA Hx Anesthesia: Yes Hx Anesthesia Reactions: No Hx Malignant Hyperthermia: No Meds Allergies/Adverse Reactions: Allergies Allergy/AdvReac Type Severity Reaction Status Date / Time No Known Allergies Allergy Verified 11/22/17 15:09 - Medications Medications: Current Medications Acetaminophen (Tylenol 325mg Tab) 650 mg PO Q6H PRN PRN Reason: Fever >100.4 F Alprazolam (Xanax) 0.5 mg PO Q6 PRN PRN Reason: Anxiety Stop: 11/21/17 00:01 Last Admin: 11/14/17 22:35 Dose: 0.5 mg Furosemide (Lasix) 40 mg PO DAILY [facility] Last Admin: 11/15/17 09:15 Dose: 40 mg Meropenem (Merrem Iv 1 Gm Premix) 50 mls @ 100 mls/hr IVPB Q8 KEKE PRN Reason: Protocol Stop: 11/23/17 08:04 Last Admin: 11/15/17 13:02 Dose: 100 mls/hr Sodium Chloride (Sodium Chloride 0.45%) 1,000 mls @ 80 mls/hr IV .[id number] [facility] Last Admin: 11/15/17 08:08 Dose: 80 mls/hr Insulin Human Regular (Humulin R Med) 0 units SC ACHS KEKE PRN Reason: Protocol Last Admin: 11/15/17 13:01 Dose: 5 units Lactulose (Enulose) 30 gm PO BID [facility] Last Admin: 11/15/17 09:16 Dose: 30 gm Metformin HCl (Glucophage) 500 mg PO DAILY [facility] Last Admin: 11/15/17 09:16 Dose: 500 mg Pantoprazole Sodium (Protonix Ec Tab) 40 mg PO ACB [facility] Last Admin: 11/15/17 08:20 Dose: 40 mg Rifaximin (Xifaxan) 550 mg PO Q12 KEKE PRN Reason: Protocol Tramadol HCl (Ultram) 50 mg PO TID PRN PRN Reason: Pain, moderate (4-7) Last Admin: 11/14/17 16:25 Dose: 50 mg Physical Exam - Constitutional Appears: No Acute Distress - Head Exam Head Exam: ATRAUMATIC, NORMOCEPHALIC - Eye Exam Eye Exam: EOMI, Normal appearance Pupil Exam: PERRL - ENT Exam ENT Exam: Mucous Membranes Moist, Normal Oropharynx, TM's Normal Bilaterally - Neck Exam Neck exam: Positive for: Lymphadenopathy, Tenderness Additional comments: left neck TTP, level 2 adenopathy, minor edema - Respiratory Exam Respiratory Exam: NORMAL BREATHING PATTERN - Cardiovascular Exam Cardiovascular Exam: REGULAR RHYTHM - GI/Abdominal Exam GI & Abdominal Exam: Normal Bowel Sounds, Soft. absent: Tenderness - Extremities Exam Extremities exam: Positive for: normal capillary refill, pedal pulses present - Back Exam Back exam: absent: CVA tenderness (L), CVA tenderness (R) - Neurological Exam Neurological exam: Alert, Oriented x3 - Psychiatric Exam Psychiatric exam: Normal Affect, Normal Mood - Skin Skin Exam: Dry, Intact, Normal Color, Warm Results - Vital Signs Recent Vital Signs: Last Vital Signs Temp 98.6 F 11/15/17 06:00 Pulse 98 H 11/15/17 10:00 Resp 16 11/15/17 06:00 BP 115/72 11/15/17 09:15 Pulse Ox 98 11/15/17 06:00 - Labs Result Diagrams: 11/15/17 06:00 11/15/17 06:00 Labs: Laboratory Results - last 24 hr 11/14/17 11/14/17 11/14/17 07:09 09:25 16:31 WBC RBC Hgb Hct MCV MCH MCHC RDW Plt Count MPV Gran % Lymph % (Auto) [place] % (Auto) Eos % (Auto) Baso % (Auto) Gran # Lymph # (Auto) [place] # (Auto) Eos # (Auto) Baso # (Auto) PT INR APTT Fibrinogen Fibrin Degrad Products D-Dimer, Quantitative Sodium Potassium Chloride Carbon Dioxide Anion Gap BUN Creatinine Est GFR ( Amer) Est GFR (Non-Af Amer) POC Glucose (mg/dL) 287 H 281 H Random Glucose Calcium Phosphorus Magnesium Total Bilirubin AST ALT Alkaline Phosphatase Total Protein Albumin Globulin Albumin/Globulin Ratio HIV 1&2 Ag/Ab, 4th Gen Nonreactive 11/14/17 11/15/17 11/15/17 21:14 06:00 06:00 WBC 16.5 H D RBC 3.90 Hgb 12.5 L Hct 35.9 L MCV 92.1 MCH 32.1 MCHC 34.8 RDW 16.6 H Plt Count 145 MPV 9.6 Gran % 90.4 H Lymph % (Auto) 4.8 L [place] % (Auto) 4.6 Eos % (Auto) 0.1 L Baso % (Auto) 0.1 Gran # 14.95 H Lymph # (Auto) 0.8 L [place] # (Auto) 0.8 H Eos # (Auto) 0.0 Baso # (Auto) 0.01 PT INR APTT Fibrinogen Fibrin Degrad Products D-Dimer, Quantitative Sodium 138 Potassium 4.9 Chloride 101 Carbon Dioxide 27 Anion Gap 15 BUN 16 Creatinine 0.7 L Est GFR ( Amer) > 60 Est GFR (Non-Af Amer) > 60 POC Glucose (mg/dL) 280 H Random Glucose 208 H Calcium 9.3 Phosphorus 3.4 Magnesium 2.2 Total Bilirubin 1.3 AST 28 ALT 29 Alkaline Phosphatase 142 H Total Protein 7.0 Albumin 2.7 L Globulin 4.3 Albumin/Globulin Ratio 0.6 L HIV 1&2 Ag/Ab, 4th Gen 11/15/17 11/15/17 11/15/17 07:14 12:52 12:55 WBC RBC Hgb Hct MCV MCH MCHC RDW Plt Count MPV Gran % Lymph % (Auto) [place] % (Auto) Eos % (Auto) Baso % (Auto) Gran # Lymph # (Auto) [place] # (Auto) Eos # (Auto) Baso # (Auto) PT INR APTT Fibrinogen Fibrin Degrad Products >10 <40 ug/ml D-Dimer, Quantitative Sodium Potassium Chloride Carbon Dioxide Anion Gap BUN Creatinine Est GFR ( Amer) Est GFR (Non-Af Amer) POC Glucose (mg/dL) 217 H 265 H Random Glucose Calcium Phosphorus Magnesium Total Bilirubin AST ALT Alkaline Phosphatase Total Protein Albumin Globulin Albumin/Globulin Ratio HIV 1&2 Ag/Ab, 4th Gen 11/15/17 12:55 WBC RBC Hgb Hct MCV MCH MCHC RDW Plt Count MPV Gran % Lymph % (Auto) [place] % (Auto) Eos % (Auto) Baso % (Auto) Gran # Lymph # (Auto) [place] # (Auto) Eos # (Auto) Baso # (Auto) PT 14.4 H INR 1.25 APTT 28.0 Fibrinogen 419 H Fibrin Degrad Products D-Dimer, Quantitative 3319 H Sodium Potassium Chloride Carbon Dioxide Anion Gap BUN Creatinine Est GFR ( Amer) Est GFR (Non-Af Amer) POC Glucose (mg/dL) Random Glucose Calcium Phosphorus Magnesium Total Bilirubin AST ALT Alkaline Phosphatase Total Protein Albumin Globulin Albumin/Globulin Ratio HIV 1&2 Ag/Ab, 4th Gen Assessment & Plan - Assessment and Plan (Free Text) Assessment: 62M who presents with Left neck edema, pain, and dysphagia Plan: -f/u neck MRI to rule out abscess -Continue IV abx -Patient will need laryngoscopy as outpatient if MRI is unremarkable -If clinically improving patient may follow up as outpatient with Dr. Marshall -Medical management as per primary team -Further recommendations as per Dr. Joanna Zapata PGY2 - Date & Time Date: 11/15/17 Time: 14:00 <Lamont Marshall - Last Filed: 11/23/17 09:10> Results - Vital Signs Recent Vital Signs: Last Vital Signs Temp 98.1 F 11/22/17 08:31 Pulse 97 H 11/22/17 08:31 Resp 20 11/22/17 08:31 BP 107/60 11/22/17 09:30 Pulse Ox 98 11/22/17 08:31 - Labs Result Diagrams: 11/22/17 08:30 11/22/17 08:30 Labs: Laboratory Results - last 24 hr 11/16/17 11/16/17 11/21/17 19:25 19:25 12:00 POC Glucose (mg/dL) Cycl Citrul Peptide IgG <16 Complement C2 2.5 Brucella Agglutinins 11/22/17 11/22/17 11:14 16:55 POC Glucose (mg/dL) 141 H 199 H Cycl Citrul Peptide IgG Complement C2 Brucella Agglutinins Attending/Attestation - Attestation I have personally seen and examined this patient.: Yes I have fully participated in the care of the patient.: Yes I have reviewed all pertinent clinical information: Yes
--- NOTE | 2017-11-15 14:37 | CP.PCM.CON ---
History of Present Illness - History of Present Illness History of Present Illness: GI Consult Note for Dr. Rosen's Service - Aria PGY2 Reason for Consult: Patient Known to Dr. Rosen Mr. Steen is a 62 year old male with a past medical history significant for decompensated liver cirrhosis s/p TIPS with associated esophageal varices and portal hypertensive gastropathy, CAD s/p CABG, s/p valve replacement, HLD, HTN, DM2, GERD and gout who presented with neck swelling and dysphagia of four days duration. Patient reports that he first noticed that he had a sore throat five days ago and was prescribed Amoxicillin by his PMD. He took two days of this medication without improvement and decided to come in to the [facility] ED for further evaluation. He denies ever experiencing this in the past. He reports that he has difficulty with both solids and liquids but less so with liquids. He further denies any recent illness, sick contacts, fevers, chills, headache, chest pain, SOB, constipation, diarrhea, hematemesis, melena, hematochezia, changes in urine output, or skin changes. 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 Zendejas GI: Dr. Rosen Review of Systems - Review of Systems Review of Systems: As stated in HPI, otherwise negative Past Patient History - Infectious Disease Hx of Infectious Diseases: None - Past Social History Smoking Status: Former Smoker - CARDIAC Hx Heart Attack: Yes Hx Pacemaker: No Other/Comment: aortic valve. open heart surgery - PULMONARY Hx Respiratory Disorders: No - NEUROLOGICAL Hx Paralysis: No - HEENT Hx HEENT Problems: Yes - ENDOCRINE/METABOLIC Hx Diabetes Mellitus Type 2: Yes - HEMATOLOGICAL/ONCOLOGICAL Hx Blood Transfusions: No - MUSCULOSKELETAL/RHEUMATOLOGICAL Hx Musculoskeletal Disorders: Yes - GASTROINTESTINAL Other/Comment: Liver problems - PSYCHIATRIC Hx Physical Abuse: No Hx Substance Use: No - SURGICAL HISTORY Hx Coronary Artery Bypass Graft: Yes Hx Open Heart Surgery: Yes Hx Orthopedic Surgery: Yes (L knee sx) Hx Valve Replacement: Yes (aortic) Other/Comment: TIPS - ANESTHESIA Hx Anesthesia: Yes Hx Anesthesia Reactions: No Hx Malignant Hyperthermia: No Meds Allergies/Adverse Reactions: Allergies Allergy/AdvReac Type Severity Reaction Status Date / Time No Known Allergies Allergy Verified 11/13/17 21:16 - Medications Medications: Current Medications Acetaminophen (Tylenol 325mg Tab) 650 mg PO Q6H PRN PRN Reason: Fever >100.4 F Alprazolam (Xanax) 0.5 mg PO Q6 PRN PRN Reason: Anxiety Stop: 11/21/17 00:01 Last Admin: 11/14/17 22:35 Dose: 0.5 mg Furosemide (Lasix) 40 mg PO DAILY [facility] Last Admin: 11/15/17 09:15 Dose: 40 mg Meropenem (Merrem Iv 1 Gm Premix) 50 mls @ 100 mls/hr IVPB Q8 KEKE PRN Reason: Protocol Stop: 11/23/17 08:04 Last Admin: 11/15/17 13:02 Dose: 100 mls/hr Sodium Chloride (Sodium Chloride 0.45%) 1,000 mls @ 80 mls/hr IV .[id number] [facility] Last Admin: 11/15/17 08:08 Dose: 80 mls/hr Insulin Human Regular (Humulin R Med) 0 units SC ACHS KEKE PRN Reason: Protocol Last Admin: 11/15/17 13:01 Dose: 5 units Lactulose (Enulose) 30 gm PO BID [facility] Last Admin: 11/15/17 09:16 Dose: 30 gm Metformin HCl (Glucophage) 500 mg PO DAILY [facility] Last Admin: 11/15/17 09:16 Dose: 500 mg Pantoprazole Sodium (Protonix Ec Tab) 40 mg PO ACB [facility] Last Admin: 11/15/17 08:20 Dose: 40 mg Rifaximin (Xifaxan) 550 mg PO Q12 KKEE PRN Reason: Protocol Tramadol HCl (Ultram) 50 mg PO TID PRN PRN Reason: Pain, moderate (4-7) Last Admin: 11/15/17 13:58 Dose: 50 mg Physical Exam - Constitutional Appears: Non-toxic, No Acute Distress - Head Exam Head Exam: ATRAUMATIC, NORMAL INSPECTION, NORMOCEPHALIC - Eye Exam Eye Exam: EOMI - ENT Exam ENT Exam: Mucous Membranes Moist - Neck Exam Neck exam: Positive for: Full Rom, Normal Inspection (Left ) - Respiratory Exam Respiratory Exam: Clear to Auscultation Bilateral, NORMAL BREATHING PATTERN. absent: Accessory Muscle Use, Chest Wall Tenderness, Decreased Breath Sounds, Prolonged Expiratory Phase, Rales, Rhonchi, Wheezes, Respiratory Distress, Stridor - Cardiovascular Exam Cardiovascular Exam: REGULAR RHYTHM, RRR, +S1, +S2. absent: Bradycardia, Tachycardia, Clicks, Diastolic murmur, Gallop, Irregular Rhythm, JVD, Rubs, +S4 , Systolic Murmur - GI/Abdominal Exam GI & Abdominal Exam: Normal Bowel Sounds, Soft. absent: Bruit, Diminished Bowel Sounds, Distended, Firm, Guarding, Hernia, Hyperactive Bowel Sounds, Hypoactive Bowel Sounds, Mass, Pulsatile Mass, Rebound, Rigid, Tenderness - Extremities Exam Extremities exam: Positive for: normal capillary refill, pedal pulses present. Negative for: pedal edema - Neurological Exam Neurological exam: Alert, Oriented x3 - Psychiatric Exam Psychiatric exam: Normal Affect, Normal Mood - Skin Skin Exam: Dry, Intact, Warm Results - Vital Signs Recent Vital Signs: Last Vital Signs Temp 98.6 F 11/15/17 06:00 Pulse 98 H 11/15/17 10:00 Resp 16 11/15/17 06:00 BP 115/72 11/15/17 09:15 Pulse Ox 98 11/15/17 06:00 - Labs Result Diagrams: 11/15/17 06:00 11/15/17 06:00 Labs: Laboratory Results - last 24 hr 11/14/17 11/14/17 11/14/17 07:09 09:25 16:31 WBC RBC Hgb Hct MCV MCH MCHC RDW Plt Count MPV Gran % Lymph % (Auto) [place] % (Auto) Eos % (Auto) Baso % (Auto) Gran # Lymph # (Auto) [place] # (Auto) Eos # (Auto) Baso # (Auto) PT INR APTT Fibrinogen Fibrin Degrad Products D-Dimer, Quantitative Sodium Potassium Chloride Carbon Dioxide Anion Gap BUN Creatinine Est GFR ( Amer) Est GFR (Non-Af Amer) POC Glucose (mg/dL) 287 H 281 H Random Glucose Calcium Phosphorus Magnesium Total Bilirubin AST ALT Alkaline Phosphatase Total Protein Albumin Globulin Albumin/Globulin Ratio HIV 1&2 Ag/Ab, 4th Gen Nonreactive 11/14/17 11/15/17 11/15/17 21:14 06:00 06:00 WBC 16.5 H D RBC 3.90 Hgb 12.5 L Hct 35.9 L MCV 92.1 MCH 32.1 MCHC 34.8 RDW 16.6 H Plt Count 145 MPV 9.6 Gran % 90.4 H Lymph % (Auto) 4.8 L [place] % (Auto) 4.6 Eos % (Auto) 0.1 L Baso % (Auto) 0.1 Gran # 14.95 H Lymph # (Auto) 0.8 L [place] # (Auto) 0.8 H Eos # (Auto) 0.0 Baso # (Auto) 0.01 PT INR APTT Fibrinogen Fibrin Degrad Products D-Dimer, Quantitative Sodium 138 Potassium 4.9 Chloride 101 Carbon Dioxide 27 Anion Gap 15 BUN 16 Creatinine 0.7 L Est GFR ( Amer) > 60 Est GFR (Non-Af Amer) > 60 POC Glucose (mg/dL) 280 H Random Glucose 208 H Calcium 9.3 Phosphorus 3.4 Magnesium 2.2 Total Bilirubin 1.3 AST 28 ALT 29 Alkaline Phosphatase 142 H Total Protein 7.0 Albumin 2.7 L Globulin 4.3 Albumin/Globulin Ratio 0.6 L HIV 1&2 Ag/Ab, 4th Gen 11/15/17 11/15/17 11/15/17 07:14 12:52 12:55 WBC RBC Hgb Hct MCV MCH MCHC RDW Plt Count MPV Gran % Lymph % (Auto) [place] % (Auto) Eos % (Auto) Baso % (Auto) Gran # Lymph # (Auto) [place] # (Auto) Eos # (Auto) Baso # (Auto) PT INR APTT Fibrinogen Fibrin Degrad Products >10 <40 ug/ml D-Dimer, Quantitative Sodium Potassium Chloride Carbon Dioxide Anion Gap BUN Creatinine Est GFR ( Amer) Est GFR (Non-Af Amer) POC Glucose (mg/dL) 217 H 265 H Random Glucose Calcium Phosphorus Magnesium Total Bilirubin AST ALT Alkaline Phosphatase Total Protein Albumin Globulin Albumin/Globulin Ratio HIV 1&2 Ag/Ab, 4th Gen 11/15/17 12:55 WBC RBC Hgb Hct MCV MCH MCHC RDW Plt Count MPV Gran % Lymph % (Auto) [place] % (Auto) Eos % (Auto) Baso % (Auto) Gran # Lymph # (Auto) [place] # (Auto) Eos # (Auto) Baso # (Auto) PT 14.4 H INR 1.25 APTT 28.0 Fibrinogen 419 H Fibrin Degrad Products D-Dimer, Quantitative 3319 H Sodium Potassium Chloride Carbon Dioxide Anion Gap BUN Creatinine Est GFR ( Amer) Est GFR (Non-Af Amer) POC Glucose (mg/dL) Random Glucose Calcium Phosphorus Magnesium Total Bilirubin AST ALT Alkaline Phosphatase Total Protein Albumin Globulin Albumin/Globulin Ratio HIV 1&2 Ag/Ab, 4th Gen Assessment & Plan - Assessment and Plan (Free Text) Assessment: 62 year old male with a past medical history significant for decompensated liver cirrhosis s/p TIPS with associated esophageal varices and portal hypertensive gastropathy, CAD s/p CABG, s/p valve replacement, HLD, HTN, DM2 , GERD and gout who presented with neck swelling and dysphagia of four days duration. GI was consulted as patient is known to Dr. Rosen due to his history of liver cirrhosis. Plan: -Abdominal US to assess TIPS pending -Current MELD Score: 10 -Continue Lasix, Lactulose and Xifaxan -Regular Diet -Continue daily PPI -Will discuss further with Dr. Rosen - Date & Time Date: 11/15/17 Time: 14:42
[2017-11-15] MEDS ORDERED: Iohexol 240 (50 ml) ONE (16:42)
[2017-11-15] MEDS ORDERED: Oxycodone/Acetaminophen 5/325 mg Tab PO PRN (17:24)
[2017-11-15] MEDS ORDERED: Oxycodone/Acetaminophen 5/325 mg Tab PO STA (21:52)
[2017-11-16] MEDS: Oxycodone/Acetaminophen 10/325 mg Tab PO PRN ×2 (04:29→11:11)
[2017-11-16] MEDS: Meropenem IV 1 gm in NS 50 ML IVPB SCH ×3 (05:35→21:26)
[2017-11-16 07:20] LABS: BASO # 0.01 K/mm3 (0.0-2.0); BASO % 0.1 % (0.0-3.0); EOS # 0.1 (0.0-0.7); EOS % 1.1 % (1.5-5.0); GRAN # 10.04 (1.4-6.5); GRAN % 80.8 % (50.0-68.0); HEMOGLOBIN 12.8 g/dL (14.0-18.0); LYMPH # 1.1 (1.2-3.4); LYMPH % 8.8 % (22.0-35.0); MEAN CELL VOLUME 91.3 fl (80.0-105.0); MEAN CORPUSCULAR HEMOGLOBIN 31.8 pg (25.0-35.0); MEAN CORPUSCULAR HGB CONC 34.9 g/dl (31.0-37.0); MEAN PLATELET VOLUME 9.3 fl (7.0-11.0); MONO # 1.1 (0.1-0.6); MONO % 9.2 % (1.0-6.0); RBC 4.02 10^6/uL (3.5-6.1); RED CELL DISTRIBUTION WIDTH 16.5 % (11.5-14.5); WHITE BLOOD COUNT 12.4 10^3/ul (4.5-11.0)
[2017-11-16 07:32] LABS: ALB/GLOB RATIO 0.6 (1.1-1.8); ALBUMIN 2.5 g/dL (3.0-4.8); ALT/SGPT 35 U/L (7-56); AST/SGOT 47 U/L (17-59); BLOOD UREA NITROGEN 14 mg/dL (7-21); CALCIUM 8.7 mg/dL (8.4-10.5); GFR NON-AFRICAN AMERICAN > 60
--- NOTE | 2017-11-16 08:06 | PN ---
Copied To: Terrence Zendejas MD Attending MD: Terrence Zendejas MD DATE: 11/15/2017 SUBJECTIVE: The patient was seen this morning in room 265, bed 1. Infectious Disease consultation notes greatly appreciated. The patient has also been antibiotics were adjusted. The patient was also seen by Orthopedics. He was complaining of ankle pain. His knee pain had almost completely subsided, so ankle x-ray was ordered. When I would like to see the patient this morning, he told me again that his knee symptoms had almost completely subsided. PHYSICAL EXAMINATION EXTREMITIES: There is no effusion and the effusion posteriorly and the Raphael cyst had quite substantially with a single dose of IV steroid. Also, concern was the lesions he pointed out on his legs, they were exquisitely tender, painful, purple, palpable nodules. There are multiple on the right and left lower extremities. On examination of the hands, there is no Osler nodes or Janeway lesions. There are no other similar lesions on the hands. LUNGS: Show good aeration present on right and left. HEART: Regular, not tachycardic. Of course, my concern was the prosthetic heart valve and the possibility of painful septic emboli. Stat echocardiogram was ordered. I spoke with Dr. Suggs, the lan specialist, to follow and notified Infectious Disease. The swelling in the neck which was the patient's initial symptom for coming to see me has improved dramatically. His sore throat has subsided. He is able to eat and swallow, does not feel short of breath. PLAN: We will await the results of the echocardiogram. Continue antibiotics. Follow sed rate and CBC as both are remained quite elevated. Infectious Disease requests ENT consultation, although CT does not show abscess and I doubt there is any need for surgical intervention, we will ask their opinion regarding the CT findings. MRI of the knee has already been ordered as well as the ankle x-rays. We will follow the results as well. Terrence Zendejas MD
[2017-11-16] MEDS: Insulin Reg-MEDIUM-Coverage SC SCH ×3 (08:14→22:32)
[2017-11-16] MEDS: Pantoprazole 40 mg EC Tab PO SCH (08:16)
--- NOTE | 2017-11-16 08:52 | CT ---
Date of service: 11/15/2017 PROCEDURE: CT Abdomen and Pelvis without intravenous contrast HISTORY: cirrhosis, r/o liver lesions COMPARISON: 06/12/16. TECHNIQUE: Technique. Contrast dose: Radiation dose: Total exam DLP = 1163 mGy-cm. This CT exam was performed using one or more of the following dose reduction techniques: Automated exposure control, adjustment of the mA and/or kV according to patient size, and/or use of iterative reconstruction technique. FINDINGS: LOWER THORAX: Discoid atelectasis in the left lower lobe. LIVER: TIPS shunt in place. No evidence of static mass. Perihepatic fluid. GALLBLADDER AND BILE DUCTS: Gallstones. PANCREAS: Unremarkable. No gross lesion or ductal dilatation. SPLEEN: [id number]-[id number] splenomegaly. ADRENALS: Unremarkable. No mass. KIDNEYS AND URETERS: Unremarkable. No hydronephrosis. No solid mass. VASCULATURE: 3.3 cm aortic aneurysm. BOWEL: Unremarkable. No obstruction. No gross mural thickening. APPENDIX: Unremarkable. Normal appendix. PERITONEUM: Unremarkable. No free fluid. No free air. LYMPH NODES: Unremarkable. No enlarged lymph nodes. BLADDER: Unremarkable. REPRODUCTIVE: Unremarkable. BONES: No acute fracture. OTHER FINDINGS: None. IMPRESSION: No evidence of hepatic mass.
--- NOTE | 2017-11-16 09:13 | CARD ---
APPROVED REPORT Date of service: 11/15/2017 EXAM: Two-dimensional and M-mode echocardiogram with Doppler and color Doppler. Other Information Quality : GoodRhythm : INDICATION AVR, R/O SBE 2D DIMENSIONS Left Atrium (2D)4.5 (1.6-4.0cm)IVSd1.2 (0.7-1.1cm) LVDd4.3 (3.9-5.9cm)PWd1.2 (0.7-1.1cm) LVDs2.9 (2.5-4.0cm)FS (%) 32.6 % LVEF (%)61.0 (>50%) M-Mode DIMENSIONS Aortic Root2.90 (2.2-3.7cm) Aortic Valve AoV Peak Mznksmbx677.0cm/sAoV VTI63.1cmAO Peak GR.38mmHg AO Mean GR.23mmHg Mitral Valve MV E Kxhtwkyj781.0cm/sMV A Wosopkjj233.0cm/sE/A ratio0.7 TDI Lateral E' Peak V9.55cm/sMedial E' Peak V7.80cm/sE/Lateral E'10.8 E/Medial E'13.2 Pulmonary Valve PV Peak Zmqijnzt39.5cm/sPV Peak Grad.2mmHg Tricuspid Valve TR Peak Chjnrars191bq/sRAP [id number] Peak Gr.25mmHg [id number] LEFT VENTRICLE The left ventricle is normal size. There is normal left ventricular wall thickness. The left ventricular function is normal. The left ventricular ejection fraction is within the normal range. There is normal LV segmental wall motion. RIGHT VENTRICLE The right ventricle is normal size. ATRIA The left atrium is mildly dilated. The right atrium size is normal. The interatrial septum is intact with no evidence for an atrial septal defect. AORTIC VALVE There is a bioprosthetic aortic valve prosthesis. The prosthetic aortic valve appears normal. MITRAL VALVE The mitral valve is moderately thickened but opens well. Mitral annular calcification is mild. Mitral regurgitation is mild. TRICUSPID VALVE The tricuspid valve is normal in structure. There is mild tricuspid regurgitation. PULMONIC VALVE The pulmonary valve is normal in structure.. GREAT VESSELS The aortic root is normal in size. PERICARDIAL EFFUSION There is no pericardial effusion. <Conclusion> The left ventricle is normal size. There is normal left ventricular wall thickness. The left ventricular function is normal. There is a bioprosthetic aortic valve prosthesis. The prosthetic aortic valve appears normal. Mitral regurgitation is mild. There is mild tricuspid regurgitation. No vegetaion seen.
--- NOTE | 2017-11-16 09:20 | US ---
Date of service: 11/15/2017 PROCEDURE: HISTORY: R/O abcess, R/O I.J. thrombus, R/O lieneirs COMPARISON: TECHNIQUE: FINDINGS: There is no evidence of mass or fluid collection in the region of patient's symptomology. No adenopathy is identified. IMPRESSION: Unremarkable exam.
[2017-11-16] MEDS ORDERED: Vancomycin 2 GM in Sodium Chloride 0.9% 500 ML IVPB ONE (11:55)
[2017-11-16] MEDS ORDERED: Vancomycin 2 GM in Sodium Chloride 0.9% 500 ML IVPB STA (13:41)
[2017-11-16] MEDS ORDERED: Iohexol 350 MG/100 ML VIAL ONE (14:41)
--- NOTE | 2017-11-16 14:47 | CP.PCM.PN ---
<Manpreet Omalley - Last Filed: 11/16/17 14:47> Subjective - Date & Time of Evaluation Date of Evaluation: 11/16/17 Time of Evaluation: 14:45 - Subjective Subjective: GI Progress Note for Dr. Rosen's Service- Aria, PGY2 Patient seen and assessed at bedside. No acute events overnight. Patient is tolerating diet without complaints at this time. Patient does continue to endorse bilateral lower extremity pain with new onset rash to bilateral lower and upper extremity. Patient denies any further complaints at this time including fevers, chills, chest pain, SOB, abdominal pain, N/V/D/C, hematochezia , melena, or changes in urine output. Objective - Vital Signs/Intake and Output Vital Signs (last 24 hours): Temp Pulse Resp BP Pulse Ox 98 F 102 H 20 117/64 97 11/16/17 12:00 11/16/17 12:00 11/16/17 12:00 11/16/17 12:00 11/16/17 05:56 Intake and Output: 11/16/17 11/16/17 06:59 18:59 Intake Total 1440 Output Total 1375 Balance 65 - Medications Medications: Current Medications Acetaminophen (Tylenol 325mg Tab) 650 mg PO Q6H PRN PRN Reason: Fever >100.4 F Alprazolam (Xanax) 0.5 mg PO Q6 PRN PRN Reason: Anxiety Stop: 11/21/17 00:01 Last Admin: 11/15/17 23:58 Dose: 0.5 mg Furosemide (Lasix) 40 mg PO DAILY [facility] Last Admin: 11/16/17 10:11 Dose: 40 mg Meropenem (Merrem Iv 1 Gm Premix) 50 mls @ 100 mls/hr IVPB Q8 [facility]KE PRN Reason: Protocol Stop: 11/23/17 08:04 Last Admin: 11/16/17 13:23 Dose: 100 mls/hr Sodium Chloride (Sodium Chloride 0.45%) 1,000 mls @ 80 mls/hr IV .[id number] [facility] Last Admin: 11/15/17 08:08 Dose: 80 mls/hr Vancomycin HCl (Vancomycin 1gm) 1 gm in 250 mls @ 167 mls/hr IVPB Q12H [facility] PRN Reason: Protocol Vancomycin HCl 2 gm/ Sodium (Chloride) 500 mls @ 170 mls/hr IVPB STAT STA PRN Reason: Protocol Stop: 11/16/17 16:37 Insulin Human Regular (Humulin R Med) 0 units SC ACHS [facility] PRN Reason: Protocol Last Admin: 11/16/17 13:24 Dose: 3 units Lactulose (Enulose) 30 gm PO BID [facility] Last Admin: 11/16/17 10:12 Dose: Not Given Metformin HCl (Glucophage) 500 mg PO DAILY [facility] Last Admin: 11/16/17 10:11 Dose: 500 mg Oxycodone/Acetaminophen (Percocet 10/325 Mg Tab) 1 tab PO Q6H PRN PRN Reason: Pain, severe (8-10) Last Admin: 11/16/17 11:11 Dose: 1 tab Pantoprazole Sodium (Protonix Ec Tab) 40 mg PO ACB [facility] Last Admin: 11/16/17 08:16 Dose: 40 mg Rifaximin (Xifaxan) 550 mg PO Q12 [facility] PRN Reason: Protocol Last Admin: 11/16/17 10:11 Dose: 550 mg Tramadol HCl (Ultram) 50 mg PO TID PRN PRN Reason: Pain, moderate (4-7) Last Admin: 11/15/17 13:58 Dose: 50 mg - Labs Labs: 11/16/17 06:30 11/16/17 06:30 PT 14.4 SECONDS (9.4-12.5) H 11/15/17 12:55 INR 1.25 11/15/17 12:55 APTT 28.0 Seconds (25.1-36.5) 11/15/17 12:55 - Constitutional Appears: Non-toxic, No Acute Distress - Head Exam Head Exam: ATRAUMATIC, NORMOCEPHALIC - Eye Exam Eye Exam: EOMI, Normal appearance - ENT Exam ENT Exam: Mucous Membranes Moist, Normal Exam - Neck Exam Neck Exam: Full ROM, Normal Inspection - Respiratory Exam Respiratory Exam: Clear to Ausculation Bilateral, NORMAL BREATHING PATTERN. absent: Accessory Muscle Use, Chest Wall Tenderness, Decreased Breath Sounds, Prolonged Expiratory Phase, Rales, Rhonchi, Wheezes, Respiratory Distress, Stridor - Cardiovascular Exam Cardiovascular Exam: Tachycardia, REGULAR RHYTHM, +S1, +S2. absent: Bradycardia , Clicks, Diastolic murmur, Gallop, Irregular Rhythm, JVD, RRR, Rubs, +S4, Murmur - GI/Abdominal Exam GI & Abdominal Exam: Soft, Normal Bowel Sounds. absent: Bruit, Distended, Firm , Guarding, Rigid, Tenderness, Diminished Bowel Sounds, Hernia, Hyperactive Bowel Sounds, Hypoactive Bowel Sounds, Organomegaly, Pulsatile Mass, Rebound, Mass - Extremities Exam Extremities Exam: Tenderness (TTP to distal extremities (b/l) upper and lower). absent: Calf Tenderness, Joint Swelling, Normal Inspection, Pedal Edema - Neurological Exam Neurological Exam: Alert, Awake, Oriented x3 - Psychiatric Exam Psychiatric exam: Normal Affect, Normal Mood - Skin Skin Exam: Dry, Warm. absent: Normal Color Additional comments: Erythematous raised lesions to posterior distal lower extremities; Severe TTP to these lesions; Small erythematous macular lesions noted on palms and soles Assessment and Plan - Assessment and Plan (Free Text) Assessment: 62 year old male with a past medical history significant for decompensated liver cirrhosis s/p TIPS with associated esophageal varices and portal hypertensive gastropathy, CAD s/p CABG, s/p valve replacement, HLD, HTN, DM2 , GERD and gout who presented with neck swelling and dysphagia of four days duration. GI was consulted as patient is known to Dr. Rosen due to his history of liver cirrhosis. Plan: -CT Abdomen/Pelvis showed TIPS shunt in place with no evidence of static mass or perihepatic fluid -Abdominal US to assess TIPS; Read pending -Current MELD Score: 10 -Continue Lasix, Lactulose and Xifaxan -Regular Diet -Continue daily PPI Patient to undergo Bacterial Endocarditis workup including PITER. Patient seen and case discussed with attending, Dr. Rosen. <Thuan Rosen V - Last Filed: 11/16/17 23:50> Objective - Vital Signs/Intake and Output Vital Signs (last 24 hours): Temp Pulse Resp BP Pulse Ox 98 F 105 H 20 117/64 97 11/16/17 12:00 11/16/17 18:00 11/16/17 12:00 11/16/17 12:00 11/16/17 05:56 Intake and Output: 11/16/17 11/17/17 18:59 06:59 Intake Total 1440 Output Total 900 Balance 540 - Medications Medications: Current Medications Alprazolam (Xanax) 0.5 mg PO Q6 PRN PRN Reason: Anxiety Stop: 11/21/17 00:01 Last Admin: 11/15/17 23:58 Dose: 0.5 mg Furosemide (Lasix) 40 mg PO DAILY [facility] Last Admin: 11/16/17 10:11 Dose: 40 mg Meropenem (Merrem Iv 1 Gm Premix) 50 mls @ 100 mls/hr IVPB Q8 [facility]KE PRN Reason: Protocol Stop: 11/23/17 08:04 Last Admin: 11/16/17 21:26 Dose: 100 mls/hr Sodium Chloride (Sodium Chloride 0.45%) 1,000 mls @ 80 mls/hr IV .[id number] [facility] Last Admin: 11/16/17 21:27 Dose: 80 mls/hr Vancomycin HCl (Vancomycin 1gm) 1 gm in 250 mls @ 167 mls/hr IVPB Q12H [facility] PRN Reason: Protocol Last Admin: 11/16/17 23:03 Dose: 167 mls/hr Insulin Human Regular (Humulin R Med) 0 units SC ACHS [facility] PRN Reason: Protocol Last Admin: 11/16/17 22:32 Dose: Not Given Lactulose (Enulose) 30 gm PO BID [facility] Last Admin: 11/16/17 18:35 Dose: Not Given Metformin HCl (Glucophage) 500 mg PO DAILY [facility] Last Admin: 11/16/17 10:11 Dose: 500 mg Oxycodone HCl (Oxycodone Immediate Release Tab) 10 mg PO Q6H PRN PRN Reason: Pain, severe (8-10) Last Admin: 11/16/17 20:12 Dose: 10 mg Oxycodone/Acetaminophen (Percocet 10/325 Mg Tab) 1 tab PO Q6H PRN PRN Reason: Pain, severe (8-10) Last Admin: 11/16/17 11:11 Dose: 1 tab Pantoprazole Sodium (Protonix Ec Tab) 40 mg PO ACB [facility] Last Admin: 11/16/17 08:16 Dose: 40 mg Rifaximin (Xifaxan) 550 mg PO Q12 [facility] PRN Reason: Protocol Last Admin: 11/16/17 21:27 Dose: 550 mg Tramadol HCl (Ultram) 50 mg PO TID PRN PRN Reason: Pain, moderate (4-7) Last Admin: 11/15/17 13:58 Dose: 50 mg - Labs Labs: 11/16/17 06:30 11/16/17 06:30 PT 14.4 SECONDS (9.4-12.5) H 11/15/17 12:55 INR 1.25 11/15/17 12:55 APTT 28.0 Seconds (25.1-36.5) 11/15/17 12:55 Attending/Attestation - Attestation I have personally seen and examined this patient.: Yes I have fully participated in the care of the patient.: Yes I have reviewed all pertinent clinical information, including history, physical exam and plan: Yes
--- NOTE | 2017-11-16 15:03 | CP.PCM.PN ---
Subjective - Date & Time of Evaluation Date of Evaluation: 11/16/17 Time of Evaluation: 14:59 - Subjective Subjective: Pt seen and examined with family members. Swallowing and pain has improved Pt did not yet receive MRI neck Objective - Vital Signs/Intake and Output Vital Signs (last 24 hours): Temp Pulse Resp BP Pulse Ox 98 F 102 H 20 117/64 97 11/16/17 12:00 11/16/17 12:00 11/16/17 12:00 11/16/17 12:00 11/16/17 05:56 Intake and Output: 11/16/17 11/16/17 06:59 18:59 Intake Total 1440 Output Total 1375 Balance 65 - Medications Medications: Current Medications Acetaminophen (Tylenol 325mg Tab) 650 mg PO Q6H PRN PRN Reason: Fever >100.4 F Alprazolam (Xanax) 0.5 mg PO Q6 PRN PRN Reason: Anxiety Stop: 11/21/17 00:01 Last Admin: 11/15/17 23:58 Dose: 0.5 mg Furosemide (Lasix) 40 mg PO DAILY [facility] Last Admin: 11/16/17 10:11 Dose: 40 mg Meropenem (Merrem Iv 1 Gm Premix) 50 mls @ 100 mls/hr IVPB Q8 [facility] PRN Reason: Protocol Stop: 11/23/17 08:04 Last Admin: 11/16/17 13:23 Dose: 100 mls/hr Sodium Chloride (Sodium Chloride 0.45%) 1,000 mls @ 80 mls/hr IV .[id number] [facility] Last Admin: 11/15/17 08:08 Dose: 80 mls/hr Vancomycin HCl (Vancomycin 1gm) 1 gm in 250 mls @ 167 mls/hr IVPB Q12H [facility] PRN Reason: Protocol Vancomycin HCl 2 gm/ Sodium (Chloride) 500 mls @ 170 mls/hr IVPB STAT STA PRN Reason: Protocol Stop: 11/16/17 16:37 Insulin Human Regular (Humulin R Med) 0 units SC ACHS [facility] PRN Reason: Protocol Last Admin: 11/16/17 13:24 Dose: 3 units Lactulose (Enulose) 30 gm PO BID [facility] Last Admin: 11/16/17 10:12 Dose: Not Given Metformin HCl (Glucophage) 500 mg PO DAILY [facility] Last Admin: 11/16/17 10:11 Dose: 500 mg Oxycodone/Acetaminophen (Percocet 10/325 Mg Tab) 1 tab PO Q6H PRN PRN Reason: Pain, severe (8-10) Last Admin: 11/16/17 11:11 Dose: 1 tab Pantoprazole Sodium (Protonix Ec Tab) 40 mg PO ACB [facility] Last Admin: 11/16/17 08:16 Dose: 40 mg Rifaximin (Xifaxan) 550 mg PO Q12 [facility] PRN Reason: Protocol Last Admin: 11/16/17 10:11 Dose: 550 mg Tramadol HCl (Ultram) 50 mg PO TID PRN PRN Reason: Pain, moderate (4-7) Last Admin: 11/15/17 13:58 Dose: 50 mg - Labs Labs: 11/16/17 06:30 11/16/17 06:30 PT 14.4 SECONDS (9.4-12.5) H 11/15/17 12:55 INR 1.25 11/15/17 12:55 APTT 28.0 Seconds (25.1-36.5) 11/15/17 12:55 - Constitutional Appears: Non-toxic, Chronically Ill - Head Exam Head Exam: ATRAUMATIC, NORMAL INSPECTION - Eye Exam Eye Exam: EOMI, Normal appearance, PERRL Pupil Exam: NORMAL ACCOMODATION - ENT Exam ENT Exam: Mucous Membranes Moist, Normal Exam - Neck Exam Neck Exam: Tenderness Additional comments: mild tenderness left level II-III, no adenopathy - Respiratory Exam Respiratory Exam: NORMAL BREATHING PATTERN - Rectal Exam Additional comments: Ears: wnl TM wnl Nose: dry septum deviation Throat: no erythema or exudate - Extremities Exam Additional comments: edema hands and arms and legs with petechiae Assessment and Plan (1) Throat pain Status: Acute (2) Hyperkalemia Status: Acute (3) Knee pain, right Status: Acute (4) Neck swelling Status: Acute (5) Shortness of breath Status: Acute (6) Ascites Status: Acute - Assessment and Plan (Free Text) Plan: await MRI results. continue your medical management for throat pain
--- NOTE | 2017-11-16 15:57 | CT ---
Date of service: 11/16/2017 PROCEDURE: CT HEAD WITH AND WITHOUT CONTRAST HISTORY: r/o emboli COMPARISON: None available. TECHNIQUE: Axial computed tomography images were obtained through the head/brain with and without intravenous contrast enhancement. Contrast dose: 100 cc of Omni 350 Radiation dose: Total exam DLP = 1668 mGy-cm. This CT exam was performed using one or more of the following dose reduction techniques: Automated exposure control, adjustment of the mA and/or kV according to patient size, and/or use of iterative reconstruction technique. FINDINGS: HEMORRHAGE: No intracranial hemorrhage. BRAIN: No mass, mass effect or edema. No abnormal intracranial enhancement. No atrophy or chronic microvascular ischemic changes. VENTRICLES: Unremarkable. No hydrocephalus. CALVARIUM: Unremarkable. SINUSES: Unremarkable as visualized. No significant inflammatory changes. MASTOID AIR CELLS: Unremarkable as visualized. No mastoid effusion. OTHER FINDINGS: None. IMPRESSION: Normal pre and post contrast enhanced CT of the head.
[2017-11-16 16:31] LABS: HEPATITIS B SURFACE AG Negative (NEGATIVE)
[2017-11-16 16:37] LABS: HEPATITIS A IGM NEGATIVE (NEGATIVE); HEPATITIS B CORE AB NEGATIVE (NEGATIVE)
[2017-11-16 16:49] LABS: HEPATITIS C ANTIBODY NEGATIVE (NEGATIVE)
[2017-11-16] MEDS ORDERED: Gadodiamide 287 MG/ML VIAL (15ML) IV ONE (17:14)
--- NOTE | 2017-11-16 17:33 | CP.PCM.CON ---
History of Present Illness - History of Present Illness History of Present Illness: General Surgery Consult for Dr. Mckeon Reason for consult: skin biopsy 62 year old male with a past medical history that includes for decompensated liver cirrhosis s/p TIPS, esophageal varices, portal hypertensive gastropathy, CAD s/p CABG, s/p valve replacement, HLD, HTN, DM2, GERD and gout who was admitted on 11/13 for with neck swelling and dysphagia for four days. Patient reports that he first noticed sore throat and talked to PMD who prescribed Amoxicillin. He took two days of this medication without improvement. He reports that he has difficulty with both solids and liquids but less so with liquids. He states that symptoms have greatly improved. He is able to tolerate regular diet. For about the same time period, patient has also had complaining of redish/purple lesions on upper/lower extremities that are extremely painful. Patient has been unable to walk normally due to pain and swelling. Patient reports that he was in [place] in September. ID and primary team are working patient up for possible endocarditis vs vasculitis. Denies any recent illness or sick contacts. Denies fevers/chills, headache, chest pain, palpitations, SOB , constipation, diarrhea, hematemesis, melena, hematochezia, urinary symptoms. PMD: Dr. 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 open heart surgery - PULMONARY Hx Respiratory Disorders: No - NEUROLOGICAL Hx Paralysis: No - HEENT Hx HEENT Problems: Yes - ENDOCRINE/METABOLIC Hx Diabetes Mellitus Type 2: Yes - HEMATOLOGICAL/ONCOLOGICAL Hx Blood Transfusions: No - MUSCULOSKELETAL/RHEUMATOLOGICAL Hx Musculoskeletal Disorders: Yes - GASTROINTESTINAL Other/Comment: Liver problems - PSYCHIATRIC Hx Physical Abuse: No Hx Substance Use: No - SURGICAL HISTORY Hx Coronary Artery Bypass Graft: Yes Hx Open Heart Surgery: Yes Hx Orthopedic Surgery: Yes (L knee sx) Hx Valve Replacement: Yes (aortic) Other/Comment: TIPS - ANESTHESIA Hx Anesthesia: Yes Hx Anesthesia Reactions: No Hx Malignant Hyperthermia: No Meds Allergies/Adverse Reactions: Allergies Allergy/AdvReac Type Severity Reaction Status Date / Time No Known Allergies Allergy Verified 11/13/17 21:16 - Medications Medications: Current Medications Acetaminophen (Tylenol 325mg Tab) 650 mg PO Q6H PRN PRN Reason: Fever >100.4 F Alprazolam (Xanax) 0.5 mg PO Q6 PRN PRN Reason: Anxiety Stop: 11/21/17 00:01 Last Admin: 11/15/17 23:58 Dose: 0.5 mg Furosemide (Lasix) 40 mg PO DAILY [facility] Last Admin: 11/16/17 10:11 Dose: 40 mg Meropenem (Merrem Iv 1 Gm Premix) 50 mls @ 100 mls/hr IVPB Q8 [facility] PRN Reason: Protocol Stop: 11/23/17 08:04 Last Admin: 11/16/17 13:23 Dose: 100 mls/hr Sodium Chloride (Sodium Chloride 0.45%) 1,000 mls @ 80 mls/hr IV .[id number] [facility] Last Admin: 11/15/17 08:08 Dose: 80 mls/hr Vancomycin HCl (Vancomycin 1gm) 1 gm in 250 mls @ 167 mls/hr IVPB Q12H [facility] PRN Reason: Protocol Insulin Human Regular (Humulin R Med) 0 units SC ACHS [facility] PRN Reason: Protocol Last Admin: 11/16/17 13:24 Dose: 3 units Lactulose (Enulose) 30 gm PO BID [facility] Last Admin: 11/16/17 10:12 Dose: Not Given Metformin HCl (Glucophage) 500 mg PO DAILY [facility] Last Admin: 11/16/17 10:11 Dose: 500 mg Oxycodone/Acetaminophen (Percocet 10/325 Mg Tab) 1 tab PO Q6H PRN PRN Reason: Pain, severe (8-10) Last Admin: 11/16/17 11:11 Dose: 1 tab Pantoprazole Sodium (Protonix Ec Tab) 40 mg PO ACB [facility] Last Admin: 11/16/17 08:16 Dose: 40 mg Rifaximin (Xifaxan) 550 mg PO Q12 [facility] PRN Reason: Protocol Last Admin: 11/16/17 10:11 Dose: 550 mg Tramadol HCl (Ultram) 50 mg PO TID PRN PRN Reason: Pain, moderate (4-7) Last Admin: 11/15/17 13:58 Dose: 50 mg Physical Exam - Additional Findings Additional findings: - Constitutional Appears: No Acute Distress - Head Exam Head Exam: ATRAUMATIC, NORMOCEPHALIC - Eye Exam Eye Exam: EOMI, Normal appearance Pupil Exam: PERRL - ENT Exam ENT Exam: Mucous Membranes Moist, Normal Oropharynx, TM's Normal Bilaterally - Neck Exam Neck exam: Positive for: Lymphadenopathy, Additional comments: level 2 adenopathy - improved - Respiratory Exam Respiratory Exam: NORMAL BREATHING PATTERN - Cardiovascular Exam Cardiovascular Exam: REGULAR RHYTHM - GI/Abdominal Exam GI & Abdominal Exam: Normal Bowel Sounds, Soft. absent: Tenderness - Extremities Exam Extremities exam: Positive for: normal capillary refill, pedal pulses present Bilateral: hands, elbows, Distal upper extremities, anterior knees, and posterior lower legs with raised, painful, purpuritic lesions - Back Exam Back exam: absent: CVA tenderness (L), CVA tenderness (R) - Neurological Exam Neurological exam: Alert, Oriented x3 - Psychiatric Exam Psychiatric exam: Normal Affect, Normal Mood - Skin Skin Exam: Dry, Intact, Warm hands, elbows, Distal upper extremities, anterior knees, and posterior lower legs with raised, painful, purpuritic lesions Results - Vital Signs Recent Vital Signs: Last Vital Signs Temp 98 F 11/16/17 12:00 Pulse 92 H 11/16/17 14:00 Resp 20 11/16/17 12:00 BP 117/64 11/16/17 12:00 Pulse Ox 97 11/16/17 05:56 - Labs Result Diagrams: 11/16/17 06:30 11/16/17 06:30 Labs: Laboratory Results - last 24 hr 11/15/17 11/15/17 11/15/17 12:55 16:08 21:33 WBC RBC Hgb Hct MCV MCH MCHC RDW Plt Count MPV Gran % Lymph % (Auto) Hooker % (Auto) Eos % (Auto) Baso % (Auto) Gran # Lymph # (Auto) [place]er # (Auto) Eos # (Auto) Baso # (Auto) ESR Sodium Potassium Chloride Carbon Dioxide Anion Gap BUN Creatinine Est GFR ( Amer) Est GFR (Non-Af Amer) POC Glucose (mg/dL) 283 H 216 H Random Glucose Calcium Total Bilirubin AST ALT Alkaline Phosphatase C-Reactive Prot, Quant 114.7 H Total Protein Albumin Globulin Albumin/Globulin Ratio Hepatitis A IgM Ab Hep Bs Antigen Hep B Core IgM Ab Hepatitis C Antibody 11/16/17 11/16/17 11/16/17 06:30 06:30 06:30 WBC 12.4 H D RBC 4.02 Hgb 12.8 L Hct 36.7 L MCV 91.3 MCH 31.8 MCHC 34.9 RDW 16.5 H Plt Count 136 MPV 9.3 Gran % 80.8 H Lymph % (Auto) 8.8 L Hooker % (Auto) 9.2 H Eos % (Auto) 1.1 L Baso % (Auto) 0.1 Gran # 10.04 H Lymph # (Auto) 1.1 L Hooker # (Auto) 1.1 H Eos # (Auto) 0.1 Baso # (Auto) 0.01 ESR 95 H Sodium 131 L Potassium 4.4 Chloride 97 L Carbon Dioxide 25 Anion Gap 13 BUN 14 Creatinine 0.6 L Est GFR ( Amer) > 60 Est GFR (Non-Af Amer) > 60 POC Glucose (mg/dL) Random Glucose 153 H Calcium 8.7 Total Bilirubin 1.6 H AST 47 ALT 35 Alkaline Phosphatase 131 H C-Reactive Prot, Quant Total Protein 6.7 Albumin 2.5 L Globulin 4.2 Albumin/Globulin Ratio 0.6 L Hepatitis A IgM Ab Negative Hep Bs Antigen Negative Hep B Core IgM Ab Negative Hepatitis C Antibody Negative 11/16/17 11/16/17 07:08 11:44 WBC RBC Hgb Hct MCV MCH MCHC RDW Plt Count MPV Gran % Lymph % (Auto) Hooker % (Auto) Eos % (Auto) Baso % (Auto) Gran # Lymph # (Auto) [place]er # (Auto) Eos # (Auto) Baso # (Auto) ESR Sodium Potassium Chloride Carbon Dioxide Anion Gap BUN Creatinine Est GFR ( Amer) Est GFR (Non-Af Amer) POC Glucose (mg/dL) 170 H 229 H Random Glucose Calcium Total Bilirubin AST ALT Alkaline Phosphatase C-Reactive Prot, Quant Total Protein Albumin Globulin Albumin/Globulin Ratio Hepatitis A IgM Ab Hep Bs Antigen Hep B Core IgM Ab Hepatitis C Antibody Assessment & Plan - Assessment and Plan (Free Text) Assessment: 62M who presents with pupuritic nodules on upper/lower extremities Plan: -f/u PITER -f/u serology work up, r/o autoimmune vs infectious -plan for biopsy after holiday -Medical management as per primary -Further recommendations as per Dr. Mike Zapata PGY2 - Date & Time Date: 11/16/17 Time: 20:00
[2017-11-16] MEDS: oxyCODONE 10 mg Immediate Release Tab PO PRN (20:12)
[2017-11-16] MEDS: Sodium Chloride 0.45% 1,000 ML IV SCH (21:27)
[2017-11-16] MEDS: Vancomycin 1gm in NS 250ml 1 GM/250 ML BAG IVPB SCH (23:03)
[2017-11-17] MEDS: Meropenem IV 1 gm in NS 50 ML IVPB SCH ×3 (06:00→21:27)
[2017-11-17] MEDS: oxyCODONE 10 mg Immediate Release Tab PO PRN ×3 (07:08→21:38)
--- NOTE | 2017-11-17 07:50 | CP.PCM.PN ---
<Coy Ferrari - Last Filed: 11/17/17 08:17> Subjective - Date & Time of Evaluation Date of Evaluation: 11/17/17 Time of Evaluation: 07:46 - Subjective Subjective: GI Fellow PGY4, progress note. Patient seen and examined. Complains of swollen hands, and painful lesion of the extremities. Denies n/v/abd pain, diarrhea. He is tolerating diet. 5pt ROS completed and negative except for above. Objective - Vital Signs/Intake and Output Vital Signs (last 24 hours): Temp Pulse Resp BP Pulse Ox 97.0 F L 108 H 18 124/69 96 11/17/17 00:01 11/17/17 06:00 11/17/17 06:00 11/17/17 06:00 11/17/17 00:01 Intake and Output: 11/17/17 11/17/17 06:59 18:59 Intake Total 1200 Output Total 1000 Balance 200 - Medications Medications: Current Medications Alprazolam (Xanax) 0.5 mg PO Q6 PRN PRN Reason: Anxiety Stop: 11/21/17 00:01 Last Admin: 11/15/17 23:58 Dose: 0.5 mg Furosemide (Lasix) 40 mg PO DAILY [facility] Last Admin: 11/16/17 10:11 Dose: 40 mg Meropenem (Merrem Iv 1 Gm Premix) 50 mls @ 100 mls/hr IVPB Q8 [facility] PRN Reason: Protocol Stop: 11/23/17 08:04 Last Admin: 11/17/17 06:00 Dose: 100 mls/hr Sodium Chloride (Sodium Chloride 0.45%) 1,000 mls @ 80 mls/hr IV .[id number] [facility] Last Admin: 11/16/17 21:27 Dose: 80 mls/hr Vancomycin HCl (Vancomycin 1gm) 1 gm in 250 mls @ 167 mls/hr IVPB Q12H [facility] PRN Reason: Protocol Last Admin: 11/16/17 23:03 Dose: 167 mls/hr Insulin Human Regular (Humulin R Med) 0 units SC ACHS [facility] PRN Reason: Protocol Last Admin: 11/16/17 22:32 Dose: Not Given Lactulose (Enulose) 30 gm PO BID [facility] Last Admin: 11/16/17 18:35 Dose: Not Given Metformin HCl (Glucophage) 500 mg PO DAILY [facility] Last Admin: 11/16/17 10:11 Dose: 500 mg Oxycodone HCl (Oxycodone Immediate Release Tab) 10 mg PO Q6H PRN PRN Reason: Pain, severe (8-10) Last Admin: 11/17/17 07:08 Dose: 10 mg Pantoprazole Sodium (Protonix Ec Tab) 40 mg PO ACB [facility] Last Admin: 11/16/17 08:16 Dose: 40 mg Rifaximin (Xifaxan) 550 mg PO Q12 [facility] PRN Reason: Protocol Last Admin: 11/16/17 21:27 Dose: 550 mg Tramadol HCl (Ultram) 50 mg PO TID PRN PRN Reason: Pain, moderate (4-7) Last Admin: 11/15/17 13:58 Dose: 50 mg - Labs Labs: 11/16/17 06:30 11/16/17 06:30 PT 14.4 SECONDS (9.4-12.5) H 11/15/17 12:55 INR 1.25 11/15/17 12:55 APTT 28.0 Seconds (25.1-36.5) 11/15/17 12:55 - Constitutional Appears: No Acute Distress, Chronically Ill - Head Exam Head Exam: ATRAUMATIC - Eye Exam Eye Exam: Normal appearance - ENT Exam ENT Exam: Mucous Membranes Moist - Respiratory Exam Respiratory Exam: Clear to Ausculation Bilateral, NORMAL BREATHING PATTERN. absent: Stridor - Cardiovascular Exam Cardiovascular Exam: REGULAR RHYTHM, +S1, +S2 - GI/Abdominal Exam GI & Abdominal Exam: Soft, Normal Bowel Sounds. absent: Tenderness - Extremities Exam Additional comments: b/l purple maculpapular lesions, painful to touch, concentrated along the achilis. - Neurological Exam Neurological Exam: Alert, Awake, Oriented x3 - Psychiatric Exam Psychiatric exam: Normal Affect, Normal Mood - Skin Skin Exam: Dry, Normal Color Assessment and Plan - Assessment and Plan (Free Text) Assessment: 62 year old male with a past medical history significant for decompensated liver cirrhosis s/p TIPS with associated esophageal varices and portal hypertensive gastropathy, CAD s/p CABG, s/p valve replacement, HLD, HTN, DM2 , GERD and gout who presented with neck swelling and dysphagia of four days duration. GI was consulted as patient is known to Dr. Rosen due to his history of liver cirrhosis. Plan: -CT Abdomen/Pelvis showed TIPS shunt in place with no evidence of static mass or perihepatic fluid -Abdominal US to assess TIPS; Read pending -Current MELD Score: 10 -Continue Lasix, Lactulose and Xifaxan -Regular Diet -Continue daily PPI Patient to undergo Bacterial Endocarditis workup including PITER. <Thuan Rosen V - Last Filed: 11/17/17 23:56> Objective - Vital Signs/Intake and Output Vital Signs (last 24 hours): Temp Pulse Resp BP Pulse Ox 98.3 F 100 H 20 110/66 98 11/17/17 18:00 11/17/17 22:00 11/17/17 18:00 11/17/17 18:00 11/17/17 12:00 Intake and Output: 11/17/17 11/18/17 18:59 06:59 Intake Total 1460 Output Total 1451 Balance 9 - Medications Medications: Current Medications Alprazolam (Xanax) 0.5 mg PO Q6 PRN PRN Reason: Anxiety Stop: 11/21/17 00:01 Last Admin: 11/15/17 23:58 Dose: 0.5 mg Furosemide (Lasix) 40 mg PO DAILY [facility] Last Admin: 11/17/17 09:56 Dose: 40 mg Heparin Sodium (Porcine) (Heparin) 5,000 units SC Q8 [facility] PRN Reason: Protocol Last Admin: 11/17/17 21:26 Dose: 5,000 units Meropenem (Merrem Iv 1 Gm Premix) 50 mls @ 100 mls/hr IVPB Q8 [facility] PRN Reason: Protocol Stop: 11/23/17 08:04 Last Admin: 11/17/17 21:27 Dose: 100 mls/hr Sodium Chloride (Sodium Chloride 0.45%) 1,000 mls @ 80 mls/hr IV .[id number] [facility] Last Admin: 11/17/17 21:29 Dose: Not Given Vancomycin HCl (Vancomycin 1gm) 1 gm in 250 mls @ 167 mls/hr IVPB Q12H [facility] PRN Reason: Protocol Last Admin: 11/17/17 21:27 Dose: 167 mls/hr Insulin Human Regular (Humulin R Med) 0 units SC ACHS [facility] PRN Reason: Protocol Last Admin: 11/17/17 21:38 Dose: Not Given Lactulose (Enulose) 30 gm PO BID [facility] Last Admin: 11/17/17 18:44 Dose: 30 gm Metformin HCl (Glucophage) 500 mg PO DAILY [facility] Last Admin: 11/17/17 10:38 Dose: 500 mg Oxycodone HCl (Oxycodone Immediate Release Tab) 10 mg PO Q6H PRN PRN Reason: Pain, severe (8-10) Last Admin: 11/17/17 21:38 Dose: 10 mg Pantoprazole Sodium (Protonix Ec Tab) 40 mg PO ACB [facility] Last Admin: 11/17/17 09:21 Dose: 40 mg Rifaximin (Xifaxan) 550 mg PO Q12 [facility] PRN Reason: Protocol Last Admin: 11/17/17 21:28 Dose: 550 mg Tramadol HCl (Ultram) 50 mg PO TID PRN PRN Reason: Pain, moderate (4-7) Last Admin: 11/15/17 13:58 Dose: 50 mg - Labs Labs: 11/16/17 06:30 11/16/17 06:30 PT 14.4 SECONDS (9.4-12.5) H 11/15/17 12:55 INR 1.25 11/15/17 12:55 APTT 28.0 Seconds (25.1-36.5) 11/15/17 12:55 Attending/Attestation - Attestation I have personally seen and examined this patient.: Yes I have fully participated in the care of the patient.: Yes I have reviewed all pertinent clinical information, including history, physical exam and plan: Yes Notes (Text): This is an addendum to GI progress report dictated by the GI Fellow.The patient was seen and examined earlier. Medical records, lab studies, imagings were reviewed. Last 24 hours events reviewed. Agreed with the above treatment plan as outlined in GI Fellow 's notes with the addition of the following Patient denies abdominal pain On examination clinically no ascites Patient does have the skin lesions suspected Sergo's nodules, and janeway lesions rule out endocarditis Patient has joint pains and swelling of the joints suggestive of possible immune complex arthr Transthoracic echo negative Waiting for PITER Decompensated cirrhosis secondary to alcohol Status post TIPS recent revision and readjustment of TIPS done Patient is only on 40 mg of Lasix Continue the antibiotics as per ID Percocet was discontinued and started oxycodone We will start the patient on sq heparin for DVT prophylaxis Close monitoring of electrotes and CBC and liver function tests 11/17/17 23:48
--- NOTE | 2017-11-17 08:35 | CP.PCM.PN ---
Subjective - Date & Time of Evaluation Date of Evaluation: 11/17/17 Time of Evaluation: 08:30 - Subjective Subjective: General Surgery - Dr. Mckeon Pt S&E. VER[place]NICA. Pt denies any complaints. He is aware of plan for future skin biopsy of purpuritic nodules. He denies any Fevers/chills, SOB/chest pain. Objective - Vital Signs/Intake and Output Vital Signs (last 24 hours): Temp Pulse Resp BP Pulse Ox 97.0 F L 108 H 18 124/69 96 11/17/17 00:01 11/17/17 06:00 11/17/17 06:00 11/17/17 06:00 11/17/17 00:01 Intake and Output: 11/17/17 11/17/17 06:59 18:59 Intake Total 1200 Output Total 1000 Balance 200 - Medications Medications: Current Medications Alprazolam (Xanax) 0.5 mg PO Q6 PRN PRN Reason: Anxiety Stop: 11/21/17 00:01 Last Admin: 11/15/17 23:58 Dose: 0.5 mg Furosemide (Lasix) 40 mg PO DAILY [facility] Last Admin: 11/16/17 10:11 Dose: 40 mg Meropenem (Merrem Iv 1 Gm Premix) 50 mls @ 100 mls/hr IVPB Q8 [facility] PRN Reason: Protocol Stop: 11/23/17 08:04 Last Admin: 11/17/17 06:00 Dose: 100 mls/hr Sodium Chloride (Sodium Chloride 0.45%) 1,000 mls @ 80 mls/hr IV .[id number] [facility] Last Admin: 11/16/17 21:27 Dose: 80 mls/hr Vancomycin HCl (Vancomycin 1gm) 1 gm in 250 mls @ 167 mls/hr IVPB Q12H [facility] PRN Reason: Protocol Last Admin: 11/16/17 23:03 Dose: 167 mls/hr Insulin Human Regular (Humulin R Med) 0 units SC ACHS [facility] PRN Reason: Protocol Last Admin: 11/16/17 22:32 Dose: Not Given Lactulose (Enulose) 30 gm PO BID [facility] Last Admin: 11/16/17 18:35 Dose: Not Given Metformin HCl (Glucophage) 500 mg PO DAILY [facility] Last Admin: 11/16/17 10:11 Dose: 500 mg Oxycodone HCl (Oxycodone Immediate Release Tab) 10 mg PO Q6H PRN PRN Reason: Pain, severe (8-10) Last Admin: 11/17/17 07:08 Dose: 10 mg Pantoprazole Sodium (Protonix Ec Tab) 40 mg PO ACB [facility] Last Admin: 11/16/17 08:16 Dose: 40 mg Rifaximin (Xifaxan) 550 mg PO Q12 [facility] PRN Reason: Protocol Last Admin: 11/16/17 21:27 Dose: 550 mg Tramadol HCl (Ultram) 50 mg PO TID PRN PRN Reason: Pain, moderate (4-7) Last Admin: 11/15/17 13:58 Dose: 50 mg - Labs Labs: 11/16/17 06:30 11/16/17 06:30 PT 14.4 SECONDS (9.4-12.5) H 11/15/17 12:55 INR 1.25 11/15/17 12:55 APTT 28.0 Seconds (25.1-36.5) 11/15/17 12:55 - Constitutional Appears: No Acute Distress - Head Exam Head Exam: ATRAUMATIC, NORMAL INSPECTION, NORMOCEPHALIC - Respiratory Exam Respiratory Exam: NORMAL BREATHING PATTERN. absent: Respiratory Distress - Cardiovascular Exam Cardiovascular Exam: REGULAR RHYTHM - GI/Abdominal Exam GI & Abdominal Exam: Soft. absent: Distended, Guarding, Tenderness - Neurological Exam Neurological Exam: Alert, Oriented x3 - Psychiatric Exam Psychiatric exam: Normal Affect, Normal Mood - Skin Skin Exam: Dry, Intact, Rash Additional comments: palpable purpuritic nodular rash involving mostly the heels b/l, the left knee, and milder on the palms of the hands Assessment and Plan - Assessment and Plan (Free Text) Assessment: 62M who presents with palpable purpuritic rash on upper/lower extremities Plan: -F/U PITER, Lab/Serology work-up -Continue medical management as per primary -Plan for biopsy Sunday when pathology back in house DW Dr Mike Maria PGY4
[2017-11-17] MEDS: Insulin Reg-MEDIUM-Coverage SC SCH ×4 (09:17→21:38)
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
[2017-11-17] MEDS: Pantoprazole 40 mg EC Tab PO SCH (09:21)
--- NOTE | 2017-11-17 10:12 | PN ---
Copied To: Janak Dallas MD Attending MD: Janak Dallas MD DATE: 11/17/2017 SUBJECTIVE: The patient is in bed, in no acute distress, nontoxic. He is comfortable. He is awake and he still has painful lesions. PHYSICAL EXAMINATION: VITAL SIGNS: Temperature is 97, blood pressure is 120/60, respiratory rate of 18, heart rate of 108. HEENT: Examination is unremarkable. NECK: Supple. LUNGS: Have decreased breath sounds. HEART: Normal S1 and S2. ABDOMEN: Soft. SKIN: Nodular, tender nodules present. DATA: Laboratory examination reveals a white count of 12,000, hemoglobin of 12.8, platelets of 136. Sed rate is 95. Coagulation is noted. Chemistries reveals the BUN of 14, creatinine of 0.6. C-reactive protein is elevated at 114. Bilirubin is slightly elevated at 1.6 and alk phos is 131. Urinalysis is noted. Vancomycin trough is 19.6. Hepatitis profile is negative. HIV is negative. Group B strep antigen is negative. The blood cultures are negative at 48 hours. The throat culture is negative. Review of orders reveals the complement levels are pending. JORGE is pending and Bartonella, Chlamydia, , rheumatoid factor, Whipple disease, repeat blood cultures all pending. Urine for Legionella and RPR is also pending. The patient is currently on meropenem and vancomycin. MRI of the neck and orbit and face is pending. The patient's PITER is also pending. Cryoglobulin levels are also pending. ASSESSMENT AND PLAN: This is a 62-year-old male who was seen early this morning with history of diabetes, hypertension, coronary artery disease, bioprosthesis aortic valve, prosthetic valve replacement, coronary artery bypass graft, who has alcoholic liver disease and cirrhosis with transjugular intrahepatic portosystemic shunt, awaiting for a transplant, had a MELD score of 9 and was admitted with sepsis with questionable pharyngitis and during hospitalization, developed tender nodules, concerned about Osler nodes and endocarditis, the Osler nodes are immune complex disease and cryoglobulins. We have asked Dr. Jones for his opinion to review the chart and I have discussed the case with Dr. Scanlon this morning about the need for a PITER. Culture negative. Workup in progress. On empirically vancomycin and meropenem. I have also asked Dr. Rancho Mckeon for skin biopsy to send for Gram stain and culture and pathology and for both acid-fast bacillus smears and fungal smears and cultures of the skin biopsy in addition to PCR for culture negative. We will follow closely with you. Case discussed with Dr. Vickers at length, the patient's family at length. Janak Dallas MD
[2017-11-17] MEDS: Sodium Chloride 0.45% 1,000 ML IV SCH ×3 (10:42→21:29)
[2017-11-17] MEDS: Vancomycin 1gm in NS 250ml 1 GM/250 ML BAG IVPB SCH ×2 (10:42→21:27)
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
[2017-11-18] MEDS: Meropenem IV 1 gm in NS 50 ML IVPB SCH ×3 (05:32→21:24)
[2017-11-18] MEDS: oxyCODONE 10 mg Immediate Release Tab PO PRN ×2 (05:36→21:23)
--- NOTE | 2017-11-18 05:51 | CP.PCM.PN ---
Subjective - Date & Time of Evaluation Date of Evaluation: 11/18/17 Time of Evaluation: 05:47 - Subjective Subjective: General Surgery - Dr. Mckeon Pt S&E. VERÓNICA. Pt complains of pain in the heels when resting on any object, otherwise no complaints at this time. He denies any chest pain, Shortness of breath, Fevers/Chills, Nausea/vomiting. Objective - Vital Signs/Intake and Output Vital Signs (last 24 hours): Temp Pulse Resp BP Pulse Ox 98.8 F 105 H 19 111/68 98 11/18/17 00:01 11/18/17 02:00 11/18/17 00:01 11/18/17 00:01 11/17/17 12:00 Intake and Output: 11/17/17 11/18/17 18:59 06:59 Intake Total 1460 Output Total 1451 Balance 9 - Medications Medications: Current Medications Alprazolam (Xanax) 0.5 mg PO Q6 PRN PRN Reason: Anxiety Stop: 11/21/17 00:01 Last Admin: 11/15/17 23:58 Dose: 0.5 mg Furosemide (Lasix) 40 mg PO DAILY [facility] Last Admin: 11/17/17 09:56 Dose: 40 mg Heparin Sodium (Porcine) (Heparin) 5,000 units SC Q8 KEKE PRN Reason: Protocol Last Admin: 11/18/17 05:32 Dose: 5,000 units Meropenem (Merrem Iv 1 Gm Premix) 50 mls @ 100 mls/hr IVPB Q8 KEKE PRN Reason: Protocol Stop: 11/23/17 08:04 Last Admin: 11/18/17 05:32 Dose: 100 mls/hr Sodium Chloride (Sodium Chloride 0.45%) 1,000 mls @ 80 mls/hr IV .[id number] [facility] Last Admin: 11/17/17 21:29 Dose: Not Given Vancomycin HCl (Vancomycin 1gm) 1 gm in 250 mls @ 167 mls/hr IVPB Q12H KEKE PRN Reason: Protocol Last Admin: 11/17/17 21:27 Dose: 167 mls/hr Insulin Human Regular (Humulin R Med) 0 units SC ACHS KEKE PRN Reason: Protocol Last Admin: 11/17/17 21:38 Dose: Not Given Lactulose (Enulose) 30 gm PO BID [facility] Last Admin: 11/17/17 18:44 Dose: 30 gm Metformin HCl (Glucophage) 500 mg PO DAILY [facility] Last Admin: 11/17/17 10:38 Dose: 500 mg Oxycodone HCl (Oxycodone Immediate Release Tab) 10 mg PO Q6H PRN PRN Reason: Pain, severe (8-10) Last Admin: 11/18/17 05:36 Dose: 10 mg Pantoprazole Sodium (Protonix Ec Tab) 40 mg PO ACB [facility] Last Admin: 11/17/17 09:21 Dose: 40 mg Rifaximin (Xifaxan) 550 mg PO Q12 KEKE PRN Reason: Protocol Last Admin: 11/17/17 21:28 Dose: 550 mg Tramadol HCl (Ultram) 50 mg PO TID PRN PRN Reason: Pain, moderate (4-7) Last Admin: 11/15/17 13:58 Dose: 50 mg - Labs Labs: 11/16/17 06:30 11/16/17 06:30 PT 14.4 SECONDS (9.4-12.5) H 11/15/17 12:55 INR 1.25 11/15/17 12:55 APTT 28.0 Seconds (25.1-36.5) 11/15/17 12:55 - Constitutional Appears: No Acute Distress - Head Exam Head Exam: ATRAUMATIC, NORMAL INSPECTION, NORMOCEPHALIC - Eye Exam Eye Exam: Normal appearance - Respiratory Exam Respiratory Exam: NORMAL BREATHING PATTERN. absent: Respiratory Distress - Cardiovascular Exam Cardiovascular Exam: Tachycardia - Neurological Exam Neurological Exam: Alert, Oriented x3 - Psychiatric Exam Psychiatric exam: Normal Affect, Normal Mood - Skin Skin Exam: Dry, Intact, Rash (palpable purpuritic rash over heels b/l, left knee , b/l palms), Warm Assessment and Plan - Assessment and Plan (Free Text) Assessment: 62M w/ palpable purpuritic rash on upper/lower extremities Plan: -Work-up for Endocarditis, Vasculitis in progress -F/U PITER, Labs/Serology -Medical management as per primary -Will perform skin biopsy Sunday as pathology currently unavailable d/t holiday DW Dr Mike Maria PGY4
[2017-11-18 07:16] LABS: BASO # 0.01 K/mm3 (0.0-2.0); BASO % 0.1 % (0.0-3.0); EOS # 0.3 (0.0-0.7); EOS % 2.5 % (1.5-5.0); GRAN # 9.32 (1.4-6.5); GRAN % 84.6 % (50.0-68.0); HEMOGLOBIN 11.6 g/dL (14.0-18.0); LYMPH # 0.6 (1.2-3.4); LYMPH % 5.5 % (22.0-35.0); MEAN CELL VOLUME 90.9 fl (80.0-105.0); MEAN CORPUSCULAR HGB CONC 35.2 g/dl (31.0-37.0); MEAN PLATELET VOLUME 9.1 fl (7.0-11.0); MONO # 0.8 (0.1-0.6); MONO % 7.3 % (1.0-6.0); RBC 3.63 10^6/uL (3.5-6.1); RED CELL DISTRIBUTION WIDTH 16.3 % (11.5-14.5)
[2017-11-18 07:27] LABS: ALB/GLOB RATIO 0.6 (1.1-1.8); ALBUMIN 2.3 g/dL (3.0-4.8); ALT/SGPT 30 U/L (7-56); AST/SGOT 40 U/L (17-59); BLOOD UREA NITROGEN 12 mg/dL (7-21); CALCIUM 8.5 mg/dL (8.4-10.5); GFR NON-AFRICAN AMERICAN > 60
[2017-11-18] MEDS: Insulin Reg-MEDIUM-Coverage SC SCH ×5 (08:16→21:39)
[2017-11-18] MEDS: Sodium Chloride 0.45% 1,000 ML IV SCH ×3 (08:26→23:54)
[2017-11-18] MEDS: Pantoprazole 40 mg EC Tab PO SCH (08:27)
[2017-11-18] MEDS: Vancomycin 1gm in NS 250ml 1 GM/250 ML BAG IVPB SCH ×2 (11:46→21:24)
--- NOTE | 2017-11-18 11:55 | CP.PCM.PN ---
<Coy Ferrari - Last Filed: 11/18/17 11:59> Subjective - Date & Time of Evaluation Date of Evaluation: 11/18/17 Time of Evaluation: 11:52 - Subjective Subjective: GI Fellow PGY4 Patient looking better. Tolerating diet. Denies GI complaints. Hand swelling improving. No acute overnight events. 5pt ROS neg except for above. Objective - Vital Signs/Intake and Output Vital Signs (last 24 hours): Temp Pulse Resp BP Pulse Ox 98.7 F 107 H 19 104/60 95 11/18/17 05:59 11/18/17 10:00 11/18/17 05:59 11/18/17 09:21 11/18/17 05:59 Intake and Output: 11/18/17 11/18/17 06:59 18:59 Intake Total 2450 Output Total 1200 Balance 1250 - Medications Medications: Current Medications Alprazolam (Xanax) 0.5 mg PO Q6 PRN PRN Reason: Anxiety Stop: 11/21/17 00:01 Last Admin: 11/15/17 23:58 Dose: 0.5 mg Furosemide (Lasix) 40 mg PO DAILY [facility] Last Admin: 11/18/17 09:21 Dose: 40 mg Heparin Sodium (Porcine) (Heparin) 5,000 units SC Q8 KEKE PRN Reason: Protocol Last Admin: 11/18/17 05:32 Dose: 5,000 units Meropenem (Merrem Iv 1 Gm Premix) 50 mls @ 100 mls/hr IVPB Q8 KEKE PRN Reason: Protocol Stop: 11/23/17 08:04 Last Admin: 11/18/17 05:32 Dose: 100 mls/hr Sodium Chloride (Sodium Chloride 0.45%) 1,000 mls @ 80 mls/hr IV .[id number] KEKE Last Admin: 11/18/17 08:26 Dose: 80 mls/hr Vancomycin HCl (Vancomycin 1gm) 1 gm in 250 mls @ 167 mls/hr IVPB Q12H KEKE PRN Reason: Protocol Last Admin: 11/18/17 11:46 Dose: 167 mls/hr Insulin Human Regular (Humulin R Med) 0 units SC ACHS KEKE PRN Reason: Protocol Last Admin: 11/18/17 11:45 Dose: 1 units Lactulose (Enulose) 30 gm PO BID [facility] Last Admin: 11/18/17 09:20 Dose: 30 gm Metformin HCl (Glucophage) 500 mg PO DAILY [facility] Last Admin: 11/18/17 09:20 Dose: 500 mg Oxycodone HCl (Oxycodone Immediate Release Tab) 10 mg PO Q6H PRN PRN Reason: Pain, severe (8-10) Last Admin: 11/18/17 05:36 Dose: 10 mg Pantoprazole Sodium (Protonix Ec Tab) 40 mg PO ACB [facility] Last Admin: 11/18/17 08:27 Dose: 40 mg Rifaximin (Xifaxan) 550 mg PO Q12 KEKE PRN Reason: Protocol Last Admin: 11/18/17 09:20 Dose: 550 mg Tramadol HCl (Ultram) 50 mg PO TID PRN PRN Reason: Pain, moderate (4-7) Last Admin: 11/15/17 13:58 Dose: 50 mg - Labs Labs: 11/18/17 06:30 11/18/17 06:30 PT 14.4 SECONDS (9.4-12.5) H 11/15/17 12:55 INR 1.25 11/15/17 12:55 APTT 28.0 Seconds (25.1-36.5) 11/15/17 12:55 - Constitutional Appears: Non-toxic, No Acute Distress - Head Exam Head Exam: NORMAL INSPECTION - Eye Exam Eye Exam: Normal appearance - Respiratory Exam Respiratory Exam: Clear to Ausculation Bilateral, NORMAL BREATHING PATTERN - Cardiovascular Exam Cardiovascular Exam: REGULAR RHYTHM, +S1, +S2 - GI/Abdominal Exam GI & Abdominal Exam: Soft, Normal Bowel Sounds. absent: Distended, Tenderness - Extremities Exam Extremities Exam: Pedal Edema. absent: Normal Inspection - Neurological Exam Neurological Exam: Alert, Awake, Oriented x3 - Psychiatric Exam Psychiatric exam: Normal Affect, Normal Mood - Skin Skin Exam: Dry, Intact, Rash. absent: Normal Color Assessment and Plan - Assessment and Plan (Free Text) Assessment: 62 year old male with a past medical history significant for decompensated liver cirrhosis s/p TIPS with associated esophageal varices and portal hypertensive gastropathy, CAD s/p CABG, s/p valve replacement, HLD, HTN, DM2 , GERD and gout who presented with neck swelling and dysphagia of four days duration. GI was consulted as patient is known to Dr. Rosen due to his history of liver cirrhosis. #Presumed endocarditis Plan: -CT Abdomen/Pelvis showed TIPS shunt in place with no evidence of static mass or perihepatic fluid -Abdominal US to assess TIPS; Read pending -Current MELD Score: 10 -Continue Lasix, Lactulose and Xifaxan -Regular Diet -Continue daily PPI -sq heparin for DVT prophylaxis -Close monitoring of electrotes and CBC and liver function tests -Patient to undergo Bacterial Endocarditis vs rheum. workup including PITER, skin biopsy, blood work. <Thuan Rosen V - Last Filed: 11/18/17 21:26> Objective - Vital Signs/Intake and Output Vital Signs (last 24 hours): Temp Pulse Resp BP Pulse Ox 98.0 F 98 H 18 102/63 97 11/18/17 18:00 11/18/17 18:00 11/18/17 18:00 11/18/17 18:00 11/18/17 18:00 Intake and Output: 11/18/17 11/19/17 18:59 06:59 Intake Total 2060 1000 Output Total 700 500 Balance 1360 500 - Medications Medications: Current Medications Alprazolam (Xanax) 0.5 mg PO Q6 PRN PRN Reason: Anxiety Stop: 11/21/17 00:01 Last Admin: 11/15/17 23:58 Dose: 0.5 mg Furosemide (Lasix) 40 mg PO DAILY [facility] Last Admin: 11/18/17 09:21 Dose: 40 mg Heparin Sodium (Porcine) (Heparin) 5,000 units SC Q8 KEKE PRN Reason: Protocol Last Admin: 11/18/17 14:38 Dose: 5,000 units Meropenem (Merrem Iv 1 Gm Premix) 50 mls @ 100 mls/hr IVPB Q8 KEKE PRN Reason: Protocol Stop: 11/23/17 08:04 Last Admin: 11/18/17 14:38 Dose: 100 mls/hr Sodium Chloride (Sodium Chloride 0.45%) 1,000 mls @ 80 mls/hr IV .[id number] [facility] Last Admin: 11/18/17 11:00 Dose: Not Given Vancomycin HCl (Vancomycin 1gm) 1 gm in 250 mls @ 167 mls/hr IVPB Q12H KEKE PRN Reason: Protocol Last Admin: 11/18/17 11:46 Dose: 167 mls/hr Insulin Human Regular (Humulin R Med) 0 units SC ACHS KEKE PRN Reason: Protocol Last Admin: 11/18/17 17:40 Dose: 1 units Lactulose (Enulose) 30 gm PO BID [facility] Last Admin: 11/18/17 17:29 Dose: 30 gm Metformin HCl (Glucophage) 500 mg PO DAILY [facility] Last Admin: 11/18/17 09:20 Dose: 500 mg Oxycodone HCl (Oxycodone Immediate Release Tab) 10 mg PO Q6H PRN PRN Reason: Pain, severe (8-10) Last Admin: 11/18/17 05:36 Dose: 10 mg Pantoprazole Sodium (Protonix Ec Tab) 40 mg PO ACB [facility] Last Admin: 11/18/17 08:27 Dose: 40 mg Rifaximin (Xifaxan) 550 mg PO Q12 KEKE PRN Reason: Protocol Last Admin: 11/18/17 09:20 Dose: 550 mg Tramadol HCl (Ultram) 50 mg PO TID PRN PRN Reason: Pain, moderate (4-7) Last Admin: 11/18/17 18:31 Dose: 50 mg - Labs Labs: 11/18/17 06:30 11/18/17 06:30 PT 14.4 SECONDS (9.4-12.5) H 11/15/17 12:55 INR 1.25 11/15/17 12:55 APTT 28.0 Seconds (25.1-36.5) 11/15/17 12:55 Attending/Attestation - Attestation I have personally seen and examined this patient.: Yes I have fully participated in the care of the patient.: Yes I have reviewed all pertinent clinical information, including history, physical exam and plan: Yes Notes (Text): This is an addendum to GI progress report dictated by the GI Fellow.The patient was seen and examined earlier. Medical records, lab studies, imagings were reviewed. Last 24 hours events reviewed. Agreed with the above treatment plan as outlined in GI Fellow 's notes with the addition of the following clinically patient was feeling better Patient still comes about this skin lesions in the extremities. 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 Grant mena Continue IV antibiotics awaiting for further workupincluding PITER skin biopsy Patient is on lactulose Lasix continue close monitoring LFTs 11/18/17 21:20
--- NOTE | 2017-11-18 12:13 | PN ---
Copied To: Beni Scanlon MD Attending MD: Beni Scanlon MD DATE: 11/18/2017 SUBJECTIVE: The patient is seen lying in bed on telemetry. He is currently comfortable. He remains afebrile. CURRENT MEDICATIONS: Included Glucophage, subcutaneous heparin, insulin, Lasix 40 mg daily, meropenem, oxycodone, Protonix, tramadol, vancomycin, Xanax and rifaximin. PHYSICAL EXAMINATION GENERAL: He is a middle-aged male who appears comfortable at rest. VITAL SIGNS: His blood pressure is 102/64 with a pulse of 100 in sinus, respirations are 14. He is afebrile. HEENT: No JVD. CHEST: Few scattered rhonchi. HEART: PMI in normal position and systolic murmur is present at the left sternal border. ABDOMEN: Soft, nontender, normoactive bowel sounds. EXTREMITIES: No edema. SKIN: Lesions remain unchanged. DIAGNOSTIC DATA: Potassium 3.9, sodium of 131, BUN and creatinine 12 and 0.7. White count 11, hemoglobin and hematocrit 11.6 and 33 with a platelet count of 102,000. IMPRESSION: 1. Recent odynophagia, neck masses have clinically improved. 2. Extensive arthralgias and skin lesions, etiology unclear. Workup in progress. 3. Known coronary artery disease and aortic stenosis, status post bypass surgery and valve replacement. 4. History of alcoholic cirrhosis with severe hepatic dysfunction, awaiting possible liver transplantation. 5. Thrombocytopenia and mild anemia. 6. Rest of problems as noted. RECOMMENDATIONS: Current treatment should continue for now. A collagen vascular workup is in progress. A transesophageal echocardiogram will be arranged for next week to exclude any potential prosthetic valve endocarditis, although his transthoracic echo was of relatively good quality that showed no evidence of this. We will continue skin biopsy. His explaining his presentation. We will continue to follow and make further recommendations as appropriate. Beni Scanlon MD MTD
--- NOTE | 2017-11-18 15:21 | PN ---
Copied To: Janak Dallas MD Attending MD: Janak Dallas MD DATE: 11/18/2017 SUBJECTIVE: The patient is in bed, in no acute distress, nontoxic. PHYSICAL EXAMINATION: VITAL SIGNS: Temperature is 98, blood pressure is 102/60, respiratory rate of 18, heart rate of 105. HEENT: Unremarkable. NECK: Supple. LUNGS: Decreased breath sounds. HEART: Normal S1, S2. ABDOMEN: Soft, nontender. LABORATORY EXAMINATION: Reveals the white count is 11,000, hemoglobin of 11, and platelets of 102. Sed rate of 95. Coagulation is noted. Chemistries reveal a creatinine of 0.7. Urinalysis is noted. Toxicology reveals a vanco trough of 19.6. Immunology, complement level is low with C4 of 11. Serology reveals hepatitis profile is negative. HIV is negative. Urine Legionella antigen is negative. Microbiology, thus far the blood cultures are negative and repeat blood cultures are negative. Review of orders reveals the patient to have vancomycin, meropenem which I will renew. ASSESSMENT AND PLAN: A 62-year-old who was seen earlier with diabetes, hypertension, coronary artery disease, bioprosthetic aortic valve replacement, coronary artery disease, coronary bypass graft, alcoholic liver disease with cirrhosis, status post transjugular intrahepatic portosystemic shunt procedure. The patient is awaiting for a liver transplant. He has a MELD score of 9 at this point and he was admitted with sepsis, pharyngitis, and neck mass, which have resolved. In the hospital, the patient developed a skin rash, which are tender nodules consistent with Osler nodes and concerned about endocarditis, although the patient's cultures are negative. The patient had received one day of amoxicillin at home. However, with a negative transthoracic echo, awaiting for a PITER and a skin biopsy. We will continue to treat his culture negative endocarditis at this time and pending PITER and immune complex disease on the basis of Osler nodes and pending culture. Negative endocarditis workup including the Bartonella, Brucella, Chlamydia, and waiting for cryoglobulin levels, factor V mutation, Q fever workup, and Whipple disease workup all pending in addition to the skin biopsy and I would send the skin biopsy for routine Gram stain and cultures in addition to AFB stain and cultures, fungal stains and cultures, on vanco and meropenem. The patient appears to be improving. We will follow with you. Awaiting for Dr. Jones's input about cryoglobulins and immune complex disease being responsible for the skin lesions. Janak Dallas MD
--- NOTE | 2017-11-18 21:08 | PN ---
Copied To: Martín Qiu MD Attending MD: Martín Qiu MD DATE: 11/18/2017 This is [facility] visit on the telemetry floor. For Dr. Jones. SUBJECTIVE: The patient is a 62-year-old male seen lying awake in bed with the blood filled vesicle/blisters of his posterior heels, persisting with no active bleeding with the edema of his hands and feet significantly improved today. The patient is now reporting that his swallowing is also better and remains on telemetry as the consultants recommendation. We are waiting tissue biopsy to determine in the near future along with transesophageal echo along with coagulable testing that was ordered and sent. His other testing including Doppler of his upper extremities and MRI of the orbits has not been read with results pending. OBJECTIVE PHYSICAL EXAMINATION: VITAL SIGNS: Temperature 98, pulse 95, respirations 17, blood pressure 105/61 with pulse ox 95%. HEENT: Unremarkable. NECK: Minimal tenderness to gentle palpation. HEART: Tachy rate. Faint systolic ejection murmur /6. LUNGS: Rare rhonchi. ABDOMEN: Soft, nontender. EXTREMITIES: Same +1 edema at the lower extremities with blood filled vesicular changes to the heels bilaterally, which are elevated on a pillow. Hand edema has now improved. LABORATORY DATA: The patient's labs were done. White blood cell count 11 down from initial 16.7 on admission 3 days prior, hemoglobin 11.6, hematocrit 33, platelet count 102,000. Sed rate done yesterday is 95. Chem metabolic panel within normal range except for sodium 131, T bili of 2. Urine showed large amount of blood with complement C4 at 11.5 and his serology including RPR, Legionella pneumophila, hepatitis A, B, C and HIV testing all negative. ASSESSMENT: For this patient is that of thrombocytopenia, leukocytosis improved, cirrhosis with ascites, pharyngitis, atherosclerotic cardiovascular disease, bioprosthetic valve, diabetes, hypertension, and vesicular blister of his lower extremities, etiology to be determined, rule out cryoglobulinemia versus infectious process. PLAN: For this patient is to continue his present medical regimen with IV antibiotics. Other testing is pending with heparin subcu prophylactically in the interim. We will monitor clinically with labs. This is a complex patient with a comprehensive medically necessary and appropriate visit carried out in excess of 30 minutes with the patient's questions answered to his satisfaction as above. Martín Qiu MD
[2017-11-19] MEDS: oxyCODONE 10 mg Immediate Release Tab PO PRN ×4 (02:39→21:14)
[2017-11-19] MEDS: Meropenem IV 1 gm in NS 50 ML IVPB SCH ×3 (05:20→21:13)
[2017-11-19 05:48] LABS: B2 GLYCOPROTEIN I AB(IGA) 26 SAU (<=20); B2 GLYCOPROTEIN I AB(IGG) <9 SGU (<=20); B2 GLYCOPROTEIN I AB(IGM) <9 SMU (<=20)
[2017-11-19 07:01] LABS: BASO # 0.01 K/mm3 (0.0-2.0); BASO % 0.1 % (0.0-3.0); EOS # 0.3 (0.0-0.7); EOS % 3.4 % (1.5-5.0); GRAN # 7.63 (1.4-6.5); GRAN % 78.6 % (50.0-68.0); HEMOGLOBIN 11.1 g/dL (14.0-18.0); LYMPH # 1.1 (1.2-3.4); LYMPH % 10.9 % (22.0-35.0); MEAN CELL VOLUME 91.8 fl (80.0-105.0); MEAN CORPUSCULAR HEMOGLOBIN 32.4 pg (25.0-35.0); MEAN CORPUSCULAR HGB CONC 35.2 g/dl (31.0-37.0); MEAN PLATELET VOLUME 9.2 fl (7.0-11.0); MONO # 0.7 (0.1-0.6); RBC 3.43 10^6/uL (3.5-6.1); RED CELL DISTRIBUTION WIDTH 16.3 % (11.5-14.5); WHITE BLOOD COUNT 9.7 10^3/ul (4.5-11.0)
[2017-11-19 07:46] LABS: ALB/GLOB RATIO 0.6 (1.1-1.8); ALBUMIN 2.3 g/dL (3.0-4.8); ALT/SGPT 20 U/L (7-56); AST/SGOT 41 U/L (17-59); BLOOD UREA NITROGEN 9 mg/dL (7-21); CALCIUM 8.3 mg/dL (8.4-10.5); GFR NON-AFRICAN AMERICAN > 60
[2017-11-19] MEDS: Insulin Reg-MEDIUM-Coverage SC SCH ×4 (08:14→21:32)
--- NOTE | 2017-11-19 08:36 | CP.PCM.PN ---
Subjective - Date & Time of Evaluation Date of Evaluation: 11/19/17 Time of Evaluation: 08:33 - Subjective Subjective: General Surgery Dr. Mckeon Pt seen & examined @bedside. no acute events overnight. pt has no complaints. reports continued pain at ankles, controlled w/ meds. denies fever, chills, nausea, vomiting. tolerating diet. Objective - Vital Signs/Intake and Output Vital Signs (last 24 hours): Temp Pulse Resp BP Pulse Ox 98.2 F 97 H 18 111/68 97 11/19/17 05:59 11/19/17 05:59 11/19/17 05:59 11/19/17 05:59 11/19/17 05:59 Intake and Output: 11/19/17 11/19/17 06:59 18:59 Intake Total 2390 Output Total 1500 Balance 890 - Medications Medications: Current Medications Alprazolam (Xanax) 0.5 mg PO Q6 PRN PRN Reason: Anxiety Stop: 11/21/17 00:01 Last Admin: 11/15/17 23:58 Dose: 0.5 mg Furosemide (Lasix) 40 mg PO DAILY [facility] Last Admin: 11/18/17 09:21 Dose: 40 mg Heparin Sodium (Porcine) (Heparin) 5,000 units SC Q8 [facility]KE PRN Reason: Protocol Last Admin: 11/19/17 05:20 Dose: 5,000 units Meropenem (Merrem Iv 1 Gm Premix) 50 mls @ 100 mls/hr IVPB Q8 [facility] PRN Reason: Protocol Stop: 11/23/17 08:04 Last Admin: 11/19/17 05:20 Dose: 100 mls/hr Sodium Chloride (Sodium Chloride 0.45%) 1,000 mls @ 80 mls/hr IV .[id number] [facility] Last Admin: 11/18/17 23:54 Dose: 80 mls/hr Vancomycin HCl (Vancomycin 1gm) 1 gm in 250 mls @ 167 mls/hr IVPB Q12H [facility] PRN Reason: Protocol Last Admin: 11/18/17 21:24 Dose: 167 mls/hr Insulin Human Regular (Humulin R Med) 0 units SC ACHS [facility] PRN Reason: Protocol Last Admin: 11/19/17 08:14 Dose: Not Given Lactulose (Enulose) 30 gm PO BID [facility] Last Admin: 11/18/17 17:29 Dose: 30 gm Metformin HCl (Glucophage) 500 mg PO DAILY [facility] Last Admin: 11/18/17 09:20 Dose: 500 mg Oxycodone HCl (Oxycodone Immediate Release Tab) 10 mg PO Q6H PRN PRN Reason: Pain, severe (8-10) Last Admin: 11/19/17 02:39 Dose: 10 mg Pantoprazole Sodium (Protonix Ec Tab) 40 mg PO ACB [facility] Last Admin: 11/18/17 08:27 Dose: 40 mg Rifaximin (Xifaxan) 550 mg PO Q12 [facility] PRN Reason: Protocol Last Admin: 11/18/17 21:24 Dose: 550 mg Tramadol HCl (Ultram) 50 mg PO TID PRN PRN Reason: Pain, moderate (4-7) Last Admin: 11/18/17 18:31 Dose: 50 mg - Labs Labs: 11/19/17 06:20 11/19/17 06:20 PT 14.4 SECONDS (9.4-12.5) H 11/15/17 12:55 INR 1.25 11/15/17 12:55 APTT 28.0 Seconds (25.1-36.5) 11/15/17 12:55 - Constitutional Appears: Non-toxic, No Acute Distress - Head Exam Head Exam: NORMAL INSPECTION - Eye Exam Eye Exam: Normal appearance - ENT Exam ENT Exam: Mucous Membranes Moist - Respiratory Exam Respiratory Exam: NORMAL BREATHING PATTERN. absent: Accessory Muscle Use, Respiratory Distress - Cardiovascular Exam Cardiovascular Exam: REGULAR RHYTHM. absent: Bradycardia, Tachycardia - GI/Abdominal Exam GI & Abdominal Exam: Soft. absent: Distended, Tenderness - Extremities Exam Additional comments: hemorrhagic bullae b/l LE Large bullae on R ankle 4x2cm multiple small, bullae L ankle 1x1cm - Neurological Exam Neurological Exam: Alert, Awake, Oriented x3 - Psychiatric Exam Psychiatric exam: Normal Affect, Normal Mood - Skin Skin Exam: Dry, Intact, Warm Assessment and Plan - Assessment and Plan (Free Text) Assessment: 62 y/o M w/ palpable purpuritic rash on upper/lower extremities Plan: - cont work-up for endocarditis/vasculitis - f/u PITER - cont medical management per PMD - plan for bedside skin Bx tomorrow; consent obtained and placed in chart Pt discussed w/ Dr. Mike Marcus DO PGY3
[2017-11-19] MEDS: Pantoprazole 40 mg EC Tab PO SCH (08:41)
--- NOTE | 2017-11-19 09:13 | PN ---
Copied To: Beni Scanlon MD Attending MD: Beni Scanlon MD DATE: 11/19/2017 SUBJECTIVE: The patient is seen lying in bed on telemetry. His skin lesions persist and appear slightly more extensive on his lower extremities. They remain painful. He remains afebrile. CURRENT MEDICATIONS: Include Glucophage, subcutaneous heparin, Lasix 40 mg daily, meropenem, oxycodone, Protonix, vancomycin, Xanax, and rifaximin. PHYSICAL EXAMINATION: GENERAL: He is a middle-aged man who appears comfortable at rest. VITAL SIGNS: His blood pressure is 110/60 with a pulse of 90 and sinus, respirations are 14. He is afebrile. HEENT: No JVD. CHEST: Few scattered rhonchi. HEART: Systolic murmur noted at the left sternal border. ABDOMEN: Soft, nontender, normoactive bowel sounds. EXTREMITIES: Skin nodules persist. His joint swelling appears improved. IMPRESSION: 1. Extensive arthralgias and skin lesions, the exact etiology unclear. Workup in progress. Skin biopsy pending. Lesions appear most consistent with immune complex deposition. I am uncertain of the etiology. 2. Known coronary artery disease and aortic stenosis, status post prior bypass surgery and aortic valve replacement. The possibility of endocarditis appears less likely given his negative cultures and afebrile state. 3. History of alcoholic cirrhosis. 4. Anemia and thrombocytopenia. 5. Rest of problems as noted. RECOMMENDATIONS: Current management will continue. Plan will be made for skin biopsies in the morning. A transesophageal echocardiogram will be arranged later in the week to exclude any valvular vegetations. We will continue to follow and make further recommendations as appropriate. Beni Scanlon MD
[2017-11-19] MEDS: Vancomycin 1gm in NS 250ml 1 GM/250 ML BAG IVPB SCH ×2 (09:29→22:11)
--- NOTE | 2017-11-19 10:00 | PN ---
Copied To: Janak Dallas MD Attending MD: Janak Dallas MD DATE: 11/19/2017 SUBJECTIVE: The patient had an uneventful night. No fevers and no chills. No nausea or vomiting. PHYSICAL EXAMINATION: VITAL SIGNS: On exam, temperature is 99, blood pressure is 100/60, respiratory rate of 20, heart rate of 100. HEENT: Examination of HEENT is unremarkable. NECK: Supple. LUNGS: Have decreased breath sounds. HEART: Normal S1, S2. ABDOMEN: Soft, nontender. LABORATORY DATA: Laboratory examination reveals the white count to be 9.7, hemoglobin of 11, platelets of 103. Chemistries reveals a BUN of 9, creatinine of 0.7. Urinalysis is noted and toxicology reveals vancomycin trough of 19.6. Immunology is reviewed. The patient's complement level 4 is 11. RPR is negative. Hepatitis profile is negative. HIV is negative. Urine for Legionella antigen is negative. Group A beta Strep antigen is negative. Microbiology reveals all blood cultures are negative thus far. Review of orders reveals the patient to be on vancomycin and meropenem. Dr. Tamara Marcus's progress note is reviewed. Dr. Martín Qiu's progress note is reviewed. ASSESSMENT AND PLAN: A 62-year-old male, who was seen earlier today with hypertension, diabetes, coronary artery disease with a bioprosthetic aortic valve replacement with coronary artery disease and coronary artery bypass graft with alcoholic liver disease with cirrhosis, status post transjugular intrahepatic post systemic shunt procedure, who is waiting for a liver transplant and the patient's MELD score now is 9, who is admitted with sepsis, pharyngitis, neck mass which is resolved. Developed some tender nodules consistent with either Osler's nodes. Concerned about prosthetic valve endocarditis, although all his cultures were negative thus far. He did not have any fevers. He was on amoxicillin over 1 day prior to admission. He has a negative transthoracic echocardiogram. We are waiting for a transesophageal echocardiogram for tomorrow. I have also asked skin biopsy. I am concerned about these tender nodules, which may be Osler's nodes, which are immune complex in nature. I have also requested culture negative endocarditis workup, which included with Bartonella, Brucella, Chlamydia. I have asked for cryoglobulin levels and galactomannan antigen and Histoplasma and Q fever, rheumatoid factor and Whipple disease, DNA levels and I have asked Microbiology to keep the cultures x3 weeks for the HACEK group and currently empirically on vancomycin, meropenem. Pending transesophageal echo, skin biopsy. I will make further recommendations. Janak Dallas MD
--- NOTE | 2017-11-19 11:34 | CP.PCM.PN ---
<Coy Ferrari - Last Filed: 11/19/17 11:31> Subjective - Date & Time of Evaluation Date of Evaluation: 11/19/17 Time of Evaluation: 11:31 - Subjective Subjective: GI Fellow [email or web address] Looking healthier. Legs and arms swelling improved. Tolerating diet. PITER and skin Bx tomorrow. Objective - Vital Signs/Intake and Output Vital Signs (last 24 hours): Temp Pulse Resp BP Pulse Ox 98.2 F 90 18 111/68 97 11/19/17 05:59 11/19/17 10:00 11/19/17 05:59 11/19/17 09:27 11/19/17 05:59 Intake and Output: 11/19/17 11/19/17 06:59 18:59 Intake Total 2390 Output Total 1500 Balance 890 - Medications Medications: Current Medications Alprazolam (Xanax) 0.5 mg PO Q6 PRN PRN Reason: Anxiety Stop: 11/21/17 00:01 Last Admin: 11/15/17 23:58 Dose: 0.5 mg Furosemide (Lasix) 40 mg PO DAILY [facility] Last Admin: 11/19/17 09:27 Dose: 40 mg Heparin Sodium (Porcine) (Heparin) 5,000 units SC Q8 [facility] PRN Reason: Protocol Last Admin: 11/19/17 05:20 Dose: 5,000 units Meropenem (Merrem Iv 1 Gm Premix) 50 mls @ 100 mls/hr IVPB Q8 [facility] PRN Reason: Protocol Stop: 11/23/17 08:04 Last Admin: 11/19/17 05:20 Dose: 100 mls/hr Sodium Chloride (Sodium Chloride 0.45%) 1,000 mls @ 80 mls/hr IV .[id number] [facility] Last Admin: 11/18/17 23:54 Dose: 80 mls/hr Vancomycin HCl (Vancomycin 1gm) 1 gm in 250 mls @ 167 mls/hr IVPB Q12H [facility] PRN Reason: Protocol Last Admin: 11/19/17 09:29 Dose: 167 mls/hr Insulin Human Regular (Humulin R Med) 0 units SC ACHS [facility] PRN Reason: Protocol Last Admin: 11/19/17 08:14 Dose: Not Given Lactulose (Enulose) 30 gm PO BID [facility] Last Admin: 11/19/17 09:27 Dose: 30 gm Metformin HCl (Glucophage) 500 mg PO DAILY [facility] Last Admin: 11/19/17 09:27 Dose: 500 mg Oxycodone HCl (Oxycodone Immediate Release Tab) 10 mg PO Q6H PRN PRN Reason: Pain, severe (8-10) Last Admin: 11/19/17 08:45 Dose: 10 mg Pantoprazole Sodium (Protonix Ec Tab) 40 mg PO ACB [facility] Last Admin: 11/19/17 08:41 Dose: 40 mg Rifaximin (Xifaxan) 550 mg PO Q12 [facility] PRN Reason: Protocol Last Admin: 11/19/17 09:27 Dose: 550 mg Tramadol HCl (Ultram) 50 mg PO TID PRN PRN Reason: Pain, moderate (4-7) Last Admin: 11/18/17 18:31 Dose: 50 mg - Labs Labs: 11/19/17 06:20 11/19/17 06:20 PT 14.4 SECONDS (9.4-12.5) H 11/15/17 12:55 INR 1.25 11/15/17 12:55 APTT 28.0 Seconds (25.1-36.5) 11/15/17 12:55 - Constitutional Appears: Well, Non-toxic, No Acute Distress - Eye Exam Eye Exam: Normal appearance - ENT Exam ENT Exam: Mucous Membranes Moist - Respiratory Exam Respiratory Exam: Clear to Ausculation Bilateral, NORMAL BREATHING PATTERN - Cardiovascular Exam Cardiovascular Exam: REGULAR RHYTHM - GI/Abdominal Exam GI & Abdominal Exam: Soft, Normal Bowel Sounds. absent: Distended, Tenderness - Extremities Exam Extremities Exam: Normal Inspection - Psychiatric Exam Psychiatric exam: Normal Affect, Normal Mood - Skin Skin Exam: Dry, Normal Color Assessment and Plan - Assessment and Plan (Free Text) Assessment: 62 year old male with a past medical history significant for decompensated liver cirrhosis s/p TIPS with associated esophageal varices and portal hypertensive gastropathy, CAD s/p CABG, s/p valve replacement, HLD, HTN, DM2 , GERD and gout who presented with neck swelling and dysphagia of four days duration. GI was consulted as patient is known to Dr. Rosen due to his history of liver cirrhosis. #Presumed endocarditis Plan: -CT Abdomen/Pelvis showed TIPS shunt in place with no evidence of static mass or perihepatic fluid -Current MELD Score: 10 -Continue Lasix, Lactulose and Xifaxan -Regular Diet -Continue daily PPI -sq heparin for DVT prophylaxis -Close monitoring of electrotes and CBC and liver function tests -Patient to undergo Bacterial Endocarditis vs rheum. workup including PITER, skin biopsy, blood work. <Jessika,Kovil V - Last Filed: 11/20/17 22:38> Objective - Vital Signs/Intake and Output Vital Signs (last 24 hours): Temp Pulse Resp BP Pulse Ox 98.6 F 111 H 19 117/59 L 98 11/20/17 17:14 11/20/17 18:00 11/20/17 17:14 11/20/17 17:14 11/20/17 17:14 Intake and Output: 11/20/17 11/21/17 18:59 06:59 Intake Total 2210 Output Total 1700 Balance 510 - Medications Medications: Current Medications Alprazolam (Xanax) 0.5 mg PO Q6 PRN PRN Reason: Anxiety Stop: 11/21/17 00:01 Last Admin: 11/15/17 23:58 Dose: 0.5 mg Furosemide (Lasix) 40 mg PO DAILY [facility] Last Admin: 11/20/17 10:33 Dose: 40 mg Heparin Sodium (Porcine) (Heparin) 5,000 units SC Q8 [facility] PRN Reason: Protocol Last Admin: 11/20/17 14:36 Dose: 5,000 units Meropenem (Merrem Iv 1 Gm Premix) 50 mls @ 100 mls/hr IVPB Q8 [facility] PRN Reason: Protocol Stop: 11/23/17 08:04 Last Admin: 11/20/17 14:36 Dose: 100 mls/hr Sodium Chloride (Sodium Chloride 0.45%) 1,000 mls @ 80 mls/hr IV .[id number] [facility] Last Admin: 11/20/17 05:55 Dose: 80 mls/hr Vancomycin HCl (Vancomycin 1gm) 1 gm in 250 mls @ 167 mls/hr IVPB Q12H [facility] PRN Reason: Protocol Last Admin: 11/20/17 10:36 Dose: 167 mls/hr Insulin Human Regular (Humulin R Med) 0 units SC ACHS [facility] PRN Reason: Protocol Last Admin: 11/20/17 21:36 Dose: Not Given Lactulose (Enulose) 30 gm PO BID [facility] Last Admin: 11/20/17 18:16 Dose: Not Given Metformin HCl (Glucophage) 500 mg PO DAILY [facility] Last Admin: 11/20/17 10:33 Dose: 500 mg Oxycodone HCl (Oxycodone Immediate Release Tab) 10 mg PO Q6H PRN PRN Reason: Pain, severe (8-10) Pantoprazole Sodium (Protonix Ec Tab) 40 mg PO ACB [facility] Last Admin: 11/20/17 10:34 Dose: 40 mg Tramadol HCl (Ultram) 50 mg PO TID PRN PRN Reason: Pain, moderate (4-7) Last Admin: 11/18/17 18:31 Dose: 50 mg - Labs Labs: 11/20/17 06:00 11/20/17 06:00 PT 14.4 SECONDS (9.4-12.5) H 11/15/17 12:55 INR 1.25 11/15/17 12:55 APTT 28.0 Seconds (25.1-36.5) 11/15/17 12:55 Attending/Attestation - Attestation I have personally seen and examined this patient.: Yes I have fully participated in the care of the patient.: Yes I have reviewed all pertinent clinical information, including history, physical exam and plan: Yes Notes (Text): This is a delayed addendum to GI progress report dictated by the GI Fellow.The patient was seen and examined earlier. Medical records, lab studies, imagings were reviewed. Last 24 hours events reviewed. Agreed with the above treatment plan as outlined in GI Fellow 's notes with the addition of the following Tolerating diet Abdomen soft nontender Continue antibiotics as per ID Plan for PITER and skin biopsy tomorrow Sunday11/20/17 22:37
[2017-11-19] MEDS: Sodium Chloride 0.45% 1,000 ML IV SCH (13:18)
--- NOTE | 2017-11-19 17:12 | US ---
Date of service: 11/16/2017 PROCEDURE: Ultrasound Doppler of the liver HISTORY: s/p TIPS Cirrhosis COMPARISON: Comparison is made to the previous study dated 06/12/2016. TECHNIQUE: Ultrasound Doppler evaluation of the liver and the tips was performed. FINDINGS: The TIPS is patent. Blood flow appreciated in the TIPS with normal direction of blood flow. The portal vein is patent. The liver is mildly enlarged measures 17.0 centimeter cirrhotic manifestation of the liver are again noted. IMPRESSION: Patent TIPS as described above.
--- NOTE | 2017-11-19 17:33 | US ---
HISTORY: Leg pain and swelling. Evaluate for DVT PHYSICIAN(S): Lamine Man MD. TECHNIQUE: Duplex sonography and color-flow Doppler with graded compression were used to evaluate the deep venous systems of both lower extremities. FINDINGS: The visualized deep venous systems of both lower extremities are sonographically normal and compressible. Normal wave forms and augmentation are seen. There is no sonographic evidence for deep venous thrombosis in the visualized segments of both lower extremities. IMPRESSION: No sonographic evidence for deep venous thrombosis in the visualized segments of both lower extremities.
--- NOTE | 2017-11-19 19:38 | CP.PCM.PN ---
Subjective - Date & Time of Evaluation Date of Evaluation: 11/19/17 Time of Evaluation: 19:36 - Subjective Subjective: pt seen and examined. Throat feels well. MRI report reviewed no abscess-small retropharyngeal fluid noted. No dysphagia. Going for tissue bx. Objective - Vital Signs/Intake and Output Vital Signs (last 24 hours): Temp Pulse Resp BP Pulse Ox 98.8 F 93 H 20 108/65 99 11/19/17 18:00 11/19/17 18:00 11/19/17 18:00 11/19/17 18:00 11/19/17 18:00 Intake and Output: 11/19/17 11/20/17 18:59 06:59 Intake Total 1840 Output Total 820 Balance 1020 - Medications Medications: Current Medications Alprazolam (Xanax) 0.5 mg PO Q6 PRN PRN Reason: Anxiety Stop: 11/21/17 00:01 Last Admin: 11/15/17 23:58 Dose: 0.5 mg Furosemide (Lasix) 40 mg PO DAILY [facility] Last Admin: 11/19/17 09:27 Dose: 40 mg Heparin Sodium (Porcine) (Heparin) 5,000 units SC Q8 [facility] PRN Reason: Protocol Last Admin: 11/19/17 13:16 Dose: 5,000 units Meropenem (Merrem Iv 1 Gm Premix) 50 mls @ 100 mls/hr IVPB Q8 [facility] PRN Reason: Protocol Stop: 11/23/17 08:04 Last Admin: 11/19/17 13:16 Dose: 100 mls/hr Sodium Chloride (Sodium Chloride 0.45%) 1,000 mls @ 80 mls/hr IV .[id number] [facility] Last Admin: 11/19/17 13:18 Dose: 80 mls/hr Vancomycin HCl (Vancomycin 1gm) 1 gm in 250 mls @ 167 mls/hr IVPB Q12H [facility] PRN Reason: Protocol Last Admin: 11/19/17 09:29 Dose: 167 mls/hr Insulin Human Regular (Humulin R Med) 0 units SC ACHS [facility] PRN Reason: Protocol Last Admin: 11/19/17 16:35 Dose: Not Given Lactulose (Enulose) 30 gm PO BID [facility] Last Admin: 11/19/17 17:39 Dose: Not Given Metformin HCl (Glucophage) 500 mg PO DAILY [facility] Last Admin: 11/19/17 09:27 Dose: 500 mg Oxycodone HCl (Oxycodone Immediate Release Tab) 10 mg PO Q6H PRN PRN Reason: Pain, severe (8-10) Last Admin: 11/19/17 14:51 Dose: 10 mg Pantoprazole Sodium (Protonix Ec Tab) 40 mg PO ACB [facility] Last Admin: 11/19/17 08:41 Dose: 40 mg Rifaximin (Xifaxan) 550 mg PO Q12 [facility] PRN Reason: Protocol Last Admin: 11/19/17 09:27 Dose: 550 mg Tramadol HCl (Ultram) 50 mg PO TID PRN PRN Reason: Pain, moderate (4-7) Last Admin: 11/18/17 18:31 Dose: 50 mg - Labs Labs: 11/19/17 06:20 11/19/17 06:20 PT 14.4 SECONDS (9.4-12.5) H 11/15/17 12:55 INR 1.25 11/15/17 12:55 APTT 28.0 Seconds (25.1-36.5) 11/15/17 12:55 - Constitutional Appears: Well, Non-toxic - Head Exam Head Exam: ATRAUMATIC, NORMAL INSPECTION - Eye Exam Eye Exam: EOMI, Normal appearance Pupil Exam: PERRL - ENT Exam ENT Exam: Mucous Membranes Moist, Normal Exam - Neck Exam Neck Exam: Full ROM - Respiratory Exam Respiratory Exam: NORMAL BREATHING PATTERN - Extremities Exam Extremities Exam: Tenderness Additional comments: lesions noted lower extremities - Psychiatric Exam Psychiatric exam: Normal Affect, Normal Mood Assessment and Plan (1) Throat pain Status: Acute (2) Hyperkalemia Status: Acute (3) Knee pain, right Status: Acute (4) Neck swelling Status: Acute (5) Shortness of breath Status: Acute (6) Ascites Status: Acute - Assessment and Plan (Free Text) Assessment: throat pain/dysphagia resolved, your medical management. Await tissue bx results
--- NOTE | 2017-11-19 22:37 | US ---
PROCEDURE: Left upper extremity venous ultrasound HISTORY: Arm pain and swelling. Evaluate for deep venous thrombosis. PHYSICIAN(S): Lamine Man MD. FINDINGS: The visualized leftinternal jugular vein is sonographically normal and compressible. No evidence of obstruction or thrombus is seen. The visualized segments of the left subclavian vein are patent with normal waveforms. No sonographic evidence of obstruction or thrombosis is seen. The visualized deep venous system of the proximal leftupper extremity is sonographically normal and compressible. IMPRESSION: 1. No sonographic evidence for deep venous thrombosis in the visualized segments of the left upper extremity.
--- NOTE | 2017-11-19 22:57 | PN ---
Copied To: Martín Qiu MD Attending MD: Martín Qiu MD DATE: 11/19/2017 This is [facility] visit on telemetry. For Dr. Jones. SUBJECTIVE: The patient is a 62-year-old male seen resting comfortably now. Family at the bedside, with his lower extremity vesicular changes modestly improved. Otherwise, no acute distress. Appetite good. PHYSICAL EXAMINATION: VITAL SIGNS: Stable. HEENT: Unremarkable. NECK: Supple. No tenderness. HEART: Regular rate. Occasional ectopic beats. LUNGS: Rare rhonchi. ABDOMEN: Soft, nontender. EXTREMITIES: With hemorrhagic vesicles on both heals, modest improvement. No edema of the hands. SKIN: Otherwise warm, dry, and clear. NEUROLOGIC: Awake, alert, and oriented x3. LABORATORY DATA: The patient's labs were done. White blood cell count 9.7, hemoglobin 11.1, hematocrit of 31.5, platelet count of 103,000 with a normal chem panel. ASSESSMENT: For this patient is that of vesicular hemorrhagic skin changes to lower extremities, etiology pending testing biopsy tomorrow. Leukocytosis, resolved; cirrhosis, status post transjugular intrahepatic portosystemic shunt procedure; atherosclerotic cardiovascular disease; aortic stenosis with bioprosthetic valve; hypertension; diabetes; gout; hyperlipidemia. PLAN: For this patient after discussion with Dr. Jones is to continue present medical regimen with biopsy and transesophageal echo tomorrow. We will monitor clinically and with labs as indicated. This is a complex patient with a comprehensive medically necessary and appropriate visit carried out in excess of 20 minutes with the patient's questions answered to his satisfaction. Martín Qiu MD
[2017-11-20 05:02] LABS: CARDIOLIPIN AB (IGA) <11 APL (<=11); CARDIOLIPIN AB (IGG) <14 GPL (<=14); CARDIOLIPIN AB (IGM) <12 MPL (<=12)
[2017-11-20] MEDS: Meropenem IV 1 gm in NS 50 ML IVPB SCH ×3 (05:52→23:02)
[2017-11-20] MEDS: oxyCODONE 10 mg Immediate Release Tab PO PRN ×4 (05:52→23:02)
[2017-11-20] MEDS: Sodium Chloride 0.45% 1,000 ML IV SCH (05:55)
[2017-11-20 06:35] LABS: BASO # 0.01 K/mm3 (0.0-2.0); BASO % 0.1 % (0.0-3.0); EOS # 0.3 (0.0-0.7); EOS % 3.5 % (1.5-5.0); GRAN # 6.36 (1.4-6.5); GRAN % 74.6 % (50.0-68.0); HEMOGLOBIN 10.9 g/dL (14.0-18.0); LYMPH # 0.8 (1.2-3.4); LYMPH % 9.3 % (22.0-35.0); MEAN CELL VOLUME 90.6 fl (80.0-105.0); MEAN CORPUSCULAR HGB CONC 35.3 g/dl (31.0-37.0); MEAN PLATELET VOLUME 9.1 fl (7.0-11.0); MONO # 1.1 (0.1-0.6); MONO % 12.5 % (1.0-6.0); RBC 3.41 10^6/uL (3.5-6.1); RED CELL DISTRIBUTION WIDTH 16.3 % (11.5-14.5); WHITE BLOOD COUNT 8.5 10^3/ul (4.5-11.0)
--- NOTE | 2017-11-20 07:03 | CP.PCM.PN ---
<Coy Ferrari - Last Filed: 11/20/17 17:10> Subjective - Date & Time of Evaluation Date of Evaluation: 11/20/17 Time of Evaluation: 06:56 - Subjective Subjective: GI Fellow pgy4 PITER and skin Bx today. No acute overnight events. No new complaints. Bullae are now leaking serosanguinous fluid. 5pt ROS neg except for above. Objective - Vital Signs/Intake and Output Vital Signs (last 24 hours): Temp Pulse Resp BP Pulse Ox 99.8 F H 102 H 19 114/69 96 11/19/17 23:01 11/20/17 02:00 11/19/17 23:01 11/19/17 23:01 11/19/17 23:01 Intake and Output: 11/19/17 11/20/17 18:59 06:59 Intake Total 1840 0 Output Total 820 1275 Balance 1020 -1275 - Medications Medications: Current Medications Alprazolam (Xanax) 0.5 mg PO Q6 PRN PRN Reason: Anxiety Stop: 11/21/17 00:01 Last Admin: 11/15/17 23:58 Dose: 0.5 mg Furosemide (Lasix) 40 mg PO DAILY [facility] Last Admin: 11/19/17 09:27 Dose: 40 mg Heparin Sodium (Porcine) (Heparin) 5,000 units SC Q8 [facility] PRN Reason: Protocol Last Admin: 11/20/17 05:52 Dose: 5,000 units Meropenem (Merrem Iv 1 Gm Premix) 50 mls @ 100 mls/hr IVPB Q8 [facility]KE PRN Reason: Protocol Stop: 11/23/17 08:04 Last Admin: 11/20/17 05:52 Dose: 100 mls/hr Sodium Chloride (Sodium Chloride 0.45%) 1,000 mls @ 80 mls/hr IV .[id number] [facility] Last Admin: 11/20/17 05:55 Dose: 80 mls/hr Vancomycin HCl (Vancomycin 1gm) 1 gm in 250 mls @ 167 mls/hr IVPB Q12H [facility] PRN Reason: Protocol Last Admin: 11/19/17 22:11 Dose: 167 mls/hr Insulin Human Regular (Humulin R Med) 0 units SC ACHS [facility] PRN Reason: Protocol Last Admin: 11/19/17 21:32 Dose: Not Given Lactulose (Enulose) 30 gm PO BID [facility] Last Admin: 11/19/17 17:39 Dose: Not Given Metformin HCl (Glucophage) 500 mg PO DAILY [facility] Last Admin: 11/19/17 09:27 Dose: 500 mg Oxycodone HCl (Oxycodone Immediate Release Tab) 10 mg PO Q6H PRN PRN Reason: Pain, severe (8-10) Last Admin: 11/20/17 05:52 Dose: 10 mg Pantoprazole Sodium (Protonix Ec Tab) 40 mg PO ACB [facility] Last Admin: 11/19/17 08:41 Dose: 40 mg Rifaximin (Xifaxan) 550 mg PO Q12 [facility] PRN Reason: Protocol Last Admin: 11/19/17 21:14 Dose: 550 mg Tramadol HCl (Ultram) 50 mg PO TID PRN PRN Reason: Pain, moderate (4-7) Last Admin: 11/18/17 18:31 Dose: 50 mg - Labs Labs: 11/19/17 06:20 11/19/17 06:20 PT 14.4 SECONDS (9.4-12.5) H 11/15/17 12:55 INR 1.25 11/15/17 12:55 APTT 28.0 Seconds (25.1-36.5) 11/15/17 12:55 - Constitutional Appears: Well, Non-toxic, No Acute Distress - Head Exam Head Exam: NORMAL INSPECTION - Eye Exam Eye Exam: Normal appearance - ENT Exam ENT Exam: Mucous Membranes Moist - Respiratory Exam Respiratory Exam: Clear to Ausculation Bilateral, NORMAL BREATHING PATTERN - Cardiovascular Exam Cardiovascular Exam: REGULAR RHYTHM - GI/Abdominal Exam GI & Abdominal Exam: Soft, Normal Bowel Sounds. absent: Tenderness - Extremities Exam Extremities Exam: Tenderness. absent: Normal Inspection - Neurological Exam Neurological Exam: Alert, Awake, Oriented x3 - Psychiatric Exam Psychiatric exam: Normal Affect, Normal Mood - Skin Skin Exam: Rash Additional comments: Soft, bullae with serosanguinous fluid Assessment and Plan - Assessment and Plan (Free Text) Assessment: 62 year old male with a past medical history significant for decompensated liver cirrhosis s/p TIPS with associated esophageal varices and portal hypertensive gastropathy, CAD s/p CABG, s/p valve replacement, HLD, HTN, DM2 , GERD and gout who presented with neck swelling and dysphagia of four days duration. GI was consulted as patient is known to Dr. Rosen due to his history of liver cirrhosis. #Presumed endocarditis Plan: -CT Abdomen/Pelvis showed TIPS shunt in place with no evidence of static mass or perihepatic fluid -U/S abd of TIPS is normal -Current MELD Score: 10 -Continue Lasix, Lactulose and Xifaxan -Regular Diet -Continue daily PPI -sq heparin for DVT prophylaxis -Close monitoring of electrotes and CBC and liver function tests -Patient to undergo Bacterial Endocarditis vs rheum. workup including PITER, skin biopsy, blood work. <Thuan Rosen V - Last Filed: 11/20/17 22:40> Objective - Vital Signs/Intake and Output Vital Signs (last 24 hours): Temp Pulse Resp BP Pulse Ox 98.6 F 111 H 19 117/59 L 98 11/20/17 17:14 11/20/17 18:00 11/20/17 17:14 11/20/17 17:14 11/20/17 17:14 Intake and Output: 11/20/17 11/21/17 18:59 06:59 Intake Total 2210 Output Total 1700 Balance 510 - Medications Medications: Current Medications Alprazolam (Xanax) 0.5 mg PO Q6 PRN PRN Reason: Anxiety Stop: 11/21/17 00:01 Last Admin: 11/15/17 23:58 Dose: 0.5 mg Furosemide (Lasix) 40 mg PO DAILY [facility] Last Admin: 11/20/17 10:33 Dose: 40 mg Heparin Sodium (Porcine) (Heparin) 5,000 units SC Q8 [facility] PRN Reason: Protocol Last Admin: 11/20/17 14:36 Dose: 5,000 units Meropenem (Merrem Iv 1 Gm Premix) 50 mls @ 100 mls/hr IVPB Q8 [facility] PRN Reason: Protocol Stop: 11/23/17 08:04 Last Admin: 11/20/17 14:36 Dose: 100 mls/hr Sodium Chloride (Sodium Chloride 0.45%) 1,000 mls @ 80 mls/hr IV .[id number] [facility] Last Admin: 11/20/17 05:55 Dose: 80 mls/hr Vancomycin HCl (Vancomycin 1gm) 1 gm in 250 mls @ 167 mls/hr IVPB Q12H [facility] PRN Reason: Protocol Last Admin: 11/20/17 10:36 Dose: 167 mls/hr Insulin Human Regular (Humulin R Med) 0 units SC ACHS [facility] PRN Reason: Protocol Last Admin: 11/20/17 21:36 Dose: Not Given Lactulose (Enulose) 30 gm PO BID [facility] Last Admin: 11/20/17 18:16 Dose: Not Given Metformin HCl (Glucophage) 500 mg PO DAILY [facility] Last Admin: 11/20/17 10:33 Dose: 500 mg Oxycodone HCl (Oxycodone Immediate Release Tab) 10 mg PO Q6H PRN PRN Reason: Pain, severe (8-10) Pantoprazole Sodium (Protonix Ec Tab) 40 mg PO ACB [facility] Last Admin: 11/20/17 10:34 Dose: 40 mg Tramadol HCl (Ultram) 50 mg PO TID PRN PRN Reason: Pain, moderate (4-7) Last Admin: 11/18/17 18:31 Dose: 50 mg - Labs Labs: 11/20/17 06:00 11/20/17 06:00 PT 14.4 SECONDS (9.4-12.5) H 11/15/17 12:55 INR 1.25 11/15/17 12:55 APTT 28.0 Seconds (25.1-36.5) 11/15/17 12:55 Attending/Attestation - Attestation I have personally seen and examined this patient.: Yes I have fully participated in the care of the patient.: Yes I have reviewed all pertinent clinical information, including history, physical exam and plan: Yes Notes (Text): This is an addendum to GI progress report dictated by the GI Fellow.The patient was seen and examined earlier. Medical records, lab studies, imagings were reviewed. Last 24 hours events reviewed. Agreed with the above treatment plan as outlined in GI Fellow 's notes with the addition of the following Status post skin biopsy PITER was rescheduled to tomorrow Joint swelling has significantly improved Continue antibiotics Discussed with the family 11/20/17 22:39
[2017-11-20 07:24] LABS: ALB/GLOB RATIO 0.6 (1.1-1.8); ALBUMIN 2.3 g/dL (3.0-4.8); ALT/SGPT 27 U/L (7-56); AST/SGOT 39 U/L (17-59); BLOOD UREA NITROGEN 8 mg/dL (7-21); CALCIUM 7.9 mg/dL (8.4-10.5); GFR NON-AFRICAN AMERICAN > 60
--- NOTE | 2017-11-20 07:28 | CP.PCM.PN ---
<Lina Carrera - Last Filed: 11/20/17 12:37> Subjective - Date & Time of Evaluation Date of Evaluation: 11/20/17 Time of Evaluation: 07:28 - Subjective Subjective: Pgy3 ID note for Dr. Seals Patient seen and examined at bedside. No acute events overnight as per nursing. Patient reported feeling better this AM. LLE skin lesions "burst" this AM and were draining serosanguinous fluid; RLE skin lesions continue to be painful. Patient reports the pain and swelling in b/l hands has much improved and he is able to flex all 10 fingers. Patient denied acute complaints of fever, chills, headache, dizziness, chest pain, palpitations, SOB, cough, abd pain, nausea, vomiting, bowel/bladder complaints. He has not been able to ambulate yet due to the pain in b/l LE. Patient has been NPO for PITER today and is scheduled for bedside skin biopsy. Objective - Vital Signs/Intake and Output Vital Signs (last 24 hours): Temp Pulse Resp BP Pulse Ox 99.8 F H 97 H 19 114/69 96 11/19/17 23:01 11/20/17 06:00 11/19/17 23:01 11/19/17 23:01 11/19/17 23:01 Intake and Output: 11/20/17 11/20/17 06:59 18:59 Intake Total 0 Output Total 1275 Balance -1275 - Medications Medications: Current Medications Alprazolam (Xanax) 0.5 mg PO Q6 PRN PRN Reason: Anxiety Stop: 11/21/17 00:01 Last Admin: 11/15/17 23:58 Dose: 0.5 mg Furosemide (Lasix) 40 mg PO DAILY [facility] Last Admin: 11/19/17 09:27 Dose: 40 mg Heparin Sodium (Porcine) (Heparin) 5,000 units SC Q8 [facility] PRN Reason: Protocol Last Admin: 11/20/17 05:52 Dose: 5,000 units Meropenem (Merrem Iv 1 Gm Premix) 50 mls @ 100 mls/hr IVPB Q8 [facility] PRN Reason: Protocol Stop: 11/23/17 08:04 Last Admin: 11/20/17 05:52 Dose: 100 mls/hr Sodium Chloride (Sodium Chloride 0.45%) 1,000 mls @ 80 mls/hr IV .[id number] [facility] Last Admin: 11/20/17 05:55 Dose: 80 mls/hr Vancomycin HCl (Vancomycin 1gm) 1 gm in 250 mls @ 167 mls/hr IVPB Q12H [facility] PRN Reason: Protocol Last Admin: 11/19/17 22:11 Dose: 167 mls/hr Insulin Human Regular (Humulin R Med) 0 units SC ACHS [facility] PRN Reason: Protocol Last Admin: 11/19/17 21:32 Dose: Not Given Lactulose (Enulose) 30 gm PO BID [facility] Last Admin: 11/19/17 17:39 Dose: Not Given Metformin HCl (Glucophage) 500 mg PO DAILY [facility] Last Admin: 11/19/17 09:27 Dose: 500 mg Oxycodone HCl (Oxycodone Immediate Release Tab) 10 mg PO Q6H PRN PRN Reason: Pain, severe (8-10) Last Admin: 11/20/17 05:52 Dose: 10 mg Pantoprazole Sodium (Protonix Ec Tab) 40 mg PO ACB [facility] Last Admin: 11/19/17 08:41 Dose: 40 mg Rifaximin (Xifaxan) 550 mg PO Q12 [facility] PRN Reason: Protocol Last Admin: 11/19/17 21:14 Dose: 550 mg Tramadol HCl (Ultram) 50 mg PO TID PRN PRN Reason: Pain, moderate (4-7) Last Admin: 11/18/17 18:31 Dose: 50 mg - Labs Labs: 11/20/17 06:00 11/20/17 06:00 PT 14.4 SECONDS (9.4-12.5) H 11/15/17 12:55 INR 1.25 11/15/17 12:55 APTT 28.0 Seconds (25.1-36.5) 11/15/17 12:55 - Constitutional Appears: Non-toxic, No Acute Distress - Head Exam Head Exam: ATRAUMATIC, NORMAL INSPECTION, NORMOCEPHALIC - Eye Exam Eye Exam: EOMI, Normal appearance, PERRL. absent: Conjunctival injection, Scleral icterus Pupil Exam: NORMAL ACCOMODATION - ENT Exam ENT Exam: Mucous Membranes Moist - Neck Exam Neck Exam: Normal Inspection - Respiratory Exam Respiratory Exam: Clear to Ausculation Bilateral, NORMAL BREATHING PATTERN. absent: Accessory Muscle Use, Rales, Rhonchi, Wheezes - Cardiovascular Exam Cardiovascular Exam: REGULAR RHYTHM, +S1, +S2, Murmur (systolic 3/6) - GI/Abdominal Exam GI & Abdominal Exam: Soft, Normal Bowel Sounds. absent: Firm, Guarding, Tenderness - Rectal Exam Rectal Exam: Deferred - Extremities Exam Additional comments: RLE purpuric bullae on posterior ankle; LLE palpable purpura draining serosanguinous fluid 3 1cm purpuric lesions noted L knee Ecchymoses noted b/l UE - Neurological Exam Neurological Exam: Alert, Awake, Oriented x3 - Psychiatric Exam Psychiatric exam: Normal Affect, Normal Mood Assessment and Plan - Assessment and Plan (Free Text) Assessment: 62yo male PMHx decompensated liver cirrhosis MELD 10 s/p TIPS with associated esophageal varices and portal HTN gastropathy, CAD s/p CABG, s/p bovine valve replacement December 2016, HLD, HTN, DM2, GERD and gout admitted originally for neck swelling and dysphagia- currently resolved. During hospital course patient developed tender nodules and skin lesions consistent with Osler nodes concerning for vasculitis vs endocarditis. Plan: -f/u PITER and skin biopsy -LE dopplers negative for DVT -CTA negative for PE -IV Vancomycin 1gm q12 started 11/16 -IV Merrem 1gm q8 started 11/14 -blood culture prelim negative x 1 11/16 -blood culture final negative x 2 11/14 -Group A Strep throat culture negative -RPR, Hepatitis panel, HIV, Legionella, Group A Strep negative -Beta 2 glycoprotein Ab elevated 26 Beta 2 GPI IgG Ab and Beta 2 GPI IgM Ab negative Anti-cardiolipin IgG Ab, IgA Ab, IgM Ab negative -Complement C4 elevated 11.5 f/u C2 and C3 -f/u further workup -Continue management as per primary Discussed with Dr. Arnel Carrera PGY3 <Wilfredo Seals - Last Filed: 11/20/17 17:27> Objective - Vital Signs/Intake and Output Vital Signs (last 24 hours): Temp Pulse Resp BP Pulse Ox 98.6 F 100 H 19 117/59 L 98 11/20/17 17:14 11/20/17 17:14 11/20/17 17:14 11/20/17 17:14 11/20/17 17:14 Intake and Output: 11/20/17 11/20/17 06:59 18:59 Intake Total 720 Output Total 2550 Balance -1830 - Medications Medications: Current Medications Alprazolam (Xanax) 0.5 mg PO Q6 PRN PRN Reason: Anxiety Stop: 11/21/17 00:01 Last Admin: 11/15/17 23:58 Dose: 0.5 mg Furosemide (Lasix) 40 mg PO DAILY [facility] Last Admin: 11/20/17 10:33 Dose: 40 mg Heparin Sodium (Porcine) (Heparin) 5,000 units SC Q8 [facility] PRN Reason: Protocol Last Admin: 11/20/17 14:36 Dose: 5,000 units Meropenem (Merrem Iv 1 Gm Premix) 50 mls @ 100 mls/hr IVPB Q8 [facility] PRN Reason: Protocol Stop: 11/23/17 08:04 Last Admin: 11/20/17 14:36 Dose: 100 mls/hr Sodium Chloride (Sodium Chloride 0.45%) 1,000 mls @ 80 mls/hr IV .[id number] [facility] Last Admin: 11/20/17 05:55 Dose: 80 mls/hr Vancomycin HCl (Vancomycin 1gm) 1 gm in 250 mls @ 167 mls/hr IVPB Q12H [facility] PRN Reason: Protocol Last Admin: 11/20/17 10:36 Dose: 167 mls/hr Insulin Human Regular (Humulin R Med) 0 units SC ACHS [facility] PRN Reason: Protocol Last Admin: 11/20/17 12:33 Dose: Not Given Lactulose (Enulose) 30 gm PO BID [facility] Last Admin: 11/20/17 10:33 Dose: 30 gm Metformin HCl (Glucophage) 500 mg PO DAILY [facility] Last Admin: 11/20/17 10:33 Dose: 500 mg Oxycodone HCl (Oxycodone Immediate Release Tab) 10 mg PO Q6H PRN PRN Reason: Pain, severe (8-10) Last Admin: 11/20/17 12:25 Dose: 10 mg Pantoprazole Sodium (Protonix Ec Tab) 40 mg PO ACB [facility] Last Admin: 11/20/17 10:34 Dose: 40 mg Rifaximin (Xifaxan) 550 mg PO Q12 [facility] PRN Reason: Protocol Last Admin: 11/20/17 10:34 Dose: 550 mg Tramadol HCl (Ultram) 50 mg PO TID PRN PRN Reason: Pain, moderate (4-7) Last Admin: 11/18/17 18:31 Dose: 50 mg - Labs Labs: 11/20/17 06:00 11/20/17 06:00 PT 14.4 SECONDS (9.4-12.5) H 11/15/17 12:55 INR 1.25 11/15/17 12:55 APTT 28.0 Seconds (25.1-36.5) 11/15/17 12:55 Assessment and Plan - Assessment and Plan (Free Text) Plan: Infectious Diseases Attending Physician Addendum Patient seen and examined, discussed with medical sales representative. I have reviewed the pertinent clinical information for the patient, including history of present illness, medical, personal and social histories, lab results and imaging findings. I agree with the above findings, assessment and plan. In addition, will continue Vancomycin, Merrem for this patient with possible vasculitic lesions on hands and legs and feet, R/O endocarditis. Will follow up final blood cx results (asked lab to hold blood cx for HCEK organisms), follow up Bartonella, Brucella Serologies, Q fever serology, Chlamydia tests, Galactomannan and Histoplasma tests. For PITER tomorrow and will follow up results (has bovine valve). Will await results of the skin biopsy.
--- NOTE | 2017-11-20 07:57 | PN ---
Copied To: Grant Zendejas MD Attending MD: Grant Zendejas MD DATE: 11/16/2017 DAILY PROGRESS NOTE SUBJECTIVE: The patient is a 62-year-old male who was admitted with a sore throat, neck swelling and sepsis. He also complains of leg pains, practical inability to walk. He has a past medical history positive for hypertension, noninsulin-dependent diabetes mellitus, hypercholesterolemia. He also has a history of coronary artery disease, bioprosthetic valve replacement, coronary artery bypass grafting and cirrhosis of the liver, status post TIPS procedure in 2007. He was treated with Merrem since his hospitalization. Blood cultures have been negative. He developed lesions on the posterior aspect of the distal lower extremities. Workup for DIC was started, but this was negative. It was felt the skin lesions were Osler nodes and Janeway lesions. When seen, the patient is awake, alert and oriented. He is in good spirits. Does complain of pain in the lower extremities, especially the right lower leg. His is at bedside. His lungs are clear anteriorly. Heart is regular. Abdomen is soft and nontender. He is afebrile. Blood pressure is 117/71, heart rate is 92. White blood cell count is 12.4, hemoglobin and hematocrit of 12.8 and 36.7 respectively, platelet count is 136. Sodium is 131, potassium is 4.4, blood urea nitrogen is 14, creatinine is 0.6. At this point, we are awaiting possible PITER to rule out bacterial endocarditis. It will probably be scheduled for after the holiday weekend. We are also waiting biopsy of the skin lesions to rule out Osler nodes and Janeway lesions. Grant Zendejas MD
--- NOTE | 2017-11-20 08:39 | PN ---
Copied To: Grant Zendejas MD Attending MD: Grant Zendejas MD DATE: 11/17/2017 SUBJECTIVE: The patient is a 62-year-old male, who was admitted with sore throat, neck swelling and sepsis. He also was known to have a history positive for hypertension, noninsulin-dependent diabetes mellitus, hypercholesterolemia, coronary artery disease, status post bioprosthetic valve replacement, coronary artery bypass grafting, status post TIPS procedure for cirrhosis of the liver. During this hospital stay, the blood cultures have been negative. He is being treated with vancomycin and Merrem. He developed ecchymotic lesions on the distal posterior aspect of his lower extremities. These are believed to be Osler nodes and Janeway lesions. He is awaiting PITER to rule out bacterial endocarditis. He is also awaiting biopsy of the skin lesions for further identification to rule out Osler nodes, to rule out Janeway lesions. When seen, the patient is awake, alert and oriented. His is at bedside. He is afebrile. Vital signs are stable. We are continuing to follow the patient closely. Procedure is to be planned as mentioned above for after the . Grant Zendejas MD
[2017-11-20] MEDS: Insulin Reg-MEDIUM-Coverage SC SCH ×4 (08:41→21:36)
--- NOTE | 2017-11-20 08:45 | PN ---
Copied To: Grant Zendejas MD Attending MD: Grant Zendejas MD DATE: 11/18/2017 DAILY PROGRESS NOTE SUBJECTIVE: The patient is a 62-year-old male with a history of hypertension, noninsulin-dependent diabetes mellitus, hypercholesterolemia, status post coronary artery bypass grafting, status post bioprosthetic valve replacement, status post TIPS procedure for cirrhosis, who was admitted with sore throat, neck swelling and sepsis. He is being treated with vancomycin and Merrem. Today, his blood cultures have been negative. The patient developed lesions of the posterior distal lower extremities. These are thought to be Osler nodes and Janeway lesions. Biopsy of these lesions is pending for 11/20/2017 after the . He is also scheduled for PITER to rule out bacterial endocarditis. The patient also underwent an MRI of the orbits, face and neck. He also underwent ultrasound of the arms, legs and abdomen. These reports are still pending. When seen, he is awake, alert and oriented. He is in good spirits. is at bedside. His white blood cell count is 11, hemoglobin and hematocrit are 11.6 and 33. Sodium is 131, potassium is 3.9. Blood urea nitrogen is 12, creatinine 0.2. His blood pressure is 102/64, heart rate is 101 and he is afebrile. The patient appears to be stable for now and he is awaiting biopsy of the skin lesions and PITER after the and we are continuing with intravenous antibiotics for his sepsis and possible bacterial endocarditis. Grant Zendejas MD
--- NOTE | 2017-11-20 08:52 | PN ---
Copied To: Grant Zendejas MD Attending MD: Grant Zendejas MD DATE: 11/19/2017 DAILY PROGRESS NOTE SUBJECTIVE: The patient is a 62-year-old male with a history of hypertension, noninsulin-dependent diabetes mellitus, hypercholesterolemia, coronary artery disease, status post coronary artery bypass grafting, status post bioprosthetic valve replacement with a history of alcoholic cirrhosis, status post TIPS procedure in 05/2017. He was admitted with neck swelling, sore throat and sepsis. Today, the blood cultures have been negative x3. He is being treated with Merrem and vancomycin. He developed ecchymotic lesions, some painful on the lower extremities. These were thought to be Osler nodes and Janeway lesions. He is awaiting biopsy of these lesions possibly on 11/20/2017. He is also awaiting PITER to rule out bacterial endocarditis. Transthoracic echocardiogram was done and no vegetations were seen on that study. When seen today, he is awake, alert and oriented. He is in good spirits. is at bedside. He is afebrile. Blood pressure is 111/68, heart rate is 91 beats per minute. His lungs are clear. Heart is regular. Abdomen is soft and nontender. His white blood cell count this morning is 9.7, hemoglobin and hematocrit are 11.1 and 31.5 respectively. Sodium is 132, potassium 4, blood urea nitrogen is 9, creatinine is 0.7. So we are continuing with the vancomycin and Merrem for a possible bacterial endocarditis and sepsis. We are awaiting biopsy of his skin lesions and PITER to rule out bacterial endocarditis. We will continue to follow the patient closely. Grant Zendejas MD
[2017-11-20] MEDS ORDERED: Iohexol 350 MG/100 ML VIAL ONE (08:55)
--- NOTE | 2017-11-20 09:23 | PN ---
Copied To: Janak Dallas MD Attending MD: Janak Dallas MD DATE: 11/16/2017 SUBJECTIVE: The patient is in room 265, bed 1. The patient's family; , daughter, and sister are present. The patient's mental status is to be questioned, he is quiet, but no fevers to be documented. PHYSICAL EXAMINATION: VITAL SIGNS: Temperature is 98, blood pressure is 117/60, respiratory rate of 20. HEENT: Unremarkable. NECK: Supple. LUNGS: Have decreased breath sounds. HEART: Normal S1, S2. ABDOMEN: Soft, nontender. No rebound or guarding. LABORATORY DATA: Reveals the patient's white count is down to 12,400. Chemistries reveal the BUN of 14, creatinine of . C-reactive protein is 114. Urinalysis is noted. Serology, hepatitis is negative. HIV is negative. Group A strep is negative. Microbiology: Blood cultures, no growth. Throat cultures are negative. The patient overnight has developed a rash, tender nodules to his lower extremities, and he has edema of the upper extremities. ASSESSMENT AND PLAN: A 62-year-old male who has seen earlier, now with aortic valve replacement, coronary artery disease, coronary artery bypass graft, alcoholic liver disease with cirrhosis and transjugular intrahepatic portosystemic shunt procedure, awaiting for liver transplant, admitted with sepsis, leukocytosis, tachycardia, pharyngitis, edema of the left pharyngeal space, now has what appears to be Osler nodes, painful nodular lesions appeared on his extremities, possibly immune complex disease, must rule out endocarditis although. His states he was having fevers in [place] and she did not take his temperature. He has not had any fevers here. He was not on any antibiotics outpatient except for a dose of amoxicillin a day before he came in. His blood cultures have been all negative and his echo done yesterday is reported to be no evidence of vegetation where a bioprosthetic aortic valve prosthesis, must rule out endocarditis. He does not meet Thao criteria. Major criteria is not bacteremic and echo is negative. We will request a transesophageal echo and microbiology and asked them to keep the blood cultures for for at least 3 weeks and we have ordered a culture negative endocarditis workup including Bartonella, polymerase chain reaction, Bartonella antibodies, brucellosis, serology chlamydia, Q fever workup, and Whipple disease workup with vasculitis workup and repeat cultures are pending. Legionella, rapid plasma reagin, and cryoglobulin levels and recommended skin biopsy. Send skin biopsy for cultures and polymerase chain reaction. May have to treat this patient with culture negative endocarditis workup, pending transesophageal echocardiogram and if he meets all 5 Minor criteria or at least 3 Minor criteria where as 1 Major criteria will be an indication for treatment for infective endocarditis. culture negative endocarditis prosthetic valve. Currently on vancomycin, meropenem. Dr. Terrence Vela's progress note is reviewed. The patient is waiting for MRI of the neck. The patient had a CAT scan of his head, which is normal pre and post contrast CAT scan of his head. Dr. Manpreet Omalley's progress note is reviewed. Soft tissue ultrasound was also done, unremarkable, as read by Dr. Benitez Aldana. CAT scan of the abdomen and pelvis, no hepatic lesions. We will follow closely with you, pending initial culture negative endocarditis workup, meropenem and vancomycin. We will discuss with Dr. Ocampo. Janak Dallas MD
--- NOTE | 2017-11-20 09:39 | PCM.SURG1 ---
Surgeon's Initial Post Op Note - Surgeon's Notes Surgeon: Dr. Mckeon Tube Molder Fiberglass: Dr. Purvis Type of Anesthesia: Local Pre-Operative Diagnosis: Purpuric Lesion Operative Findings: Normal Suncutaneous tissue Post-Operative Diagnosis: Purpuric lesion Operation Performed: Bedside punch biopsy of skin lesion right calf Specimen/Specimens Removed: Skin biopsy Estimated Blood Loss: EBL {In ML}: 1 Blood Products Given: N/A Drains Used: No Drains Post-Op Condition: Good Date of Surgery/Procedure: 11/20/17 Time of Surgery/Procedure: 09:38
--- NOTE | 2017-11-20 09:53 | MRI ---
Date of service: 11/16/2017 PROCEDURE: MRI NECK WITH AND WITHOUT CONTRAST HISTORY: r/o left parapharyngeal abscess COMPARISON: None. TECHNIQUE: Multiplanar multisequence MR images of the neck were obtained with and without gadolinium enhancement. FINDINGS: NASOPHARYNX: Unremarkable. SUPRAHYOID NECK: There is an area of edema and enhancement in the left parapharyngeal space measuring 3.8 x 3.0 x 5 cm. This could be inflammatory or neoplastic in origin. There is no evidence of abscess. A flow void can be seen in the carotid. The jugular is not visualized and may be compressed. INFRAHYOID NECK: Unremarkable larynx, hypopharynx, and supraglottic space. Vocal cords intact. MASS: None. GLANDS: Parotid and submandibular glands unremarkable. Normal size thyroid gland, without nodule. LYMPH NODES: Normal. No lymphadenopathy. VASCULAR STRUCTURES: Unremarkable. ENHANCEMENT: As above OTHER FINDINGS: The report concurs with the preliminary [facility] report IMPRESSION: There is an area of edema and enhancement in the left parapharyngeal space measuring 3.8 x 3.0 x 5 cm. This could be inflammatory or neoplastic in origin. There is no evidence of abscess. A flow void can be seen in the carotid. The jugular is not visualized and may be compressed.
[2017-11-20] MEDS: Pantoprazole 40 mg EC Tab PO SCH (10:34)
[2017-11-20] MEDS: Vancomycin 1gm in NS 250ml 1 GM/250 ML BAG IVPB SCH ×2 (10:36→23:05)
--- NOTE | 2017-11-20 10:36 | CP.PCM.PN ---
Subjective - Date & Time of Evaluation Date of Evaluation: 11/20/17 Time of Evaluation: 10:33 - Subjective Subjective: Heme/Onc Progress Note for Dr. Jones Patient seen and examined at bedside. No acute overnight events. Patient states that skin lesions were tender, however controlled with medications. Patient to have skin biopsy and PITER today. Patient denied CP, SOB, n/v/d, abdominal pain, fever, chills, SERRATO, or dizziness. Objective - Vital Signs/Intake and Output Vital Signs (last 24 hours): Temp Pulse Resp BP Pulse Ox 98.6 F 104 H 18 103/66 96 11/20/17 07:53 11/20/17 07:53 11/20/17 07:53 11/20/17 07:53 11/20/17 07:53 Intake and Output: 11/20/17 11/20/17 06:59 18:59 Intake Total 720 Output Total 2550 Balance -1830 - Medications Medications: Current Medications Alprazolam (Xanax) 0.5 mg PO Q6 PRN PRN Reason: Anxiety Stop: 11/21/17 00:01 Last Admin: 11/15/17 23:58 Dose: 0.5 mg Furosemide (Lasix) 40 mg PO DAILY [facility] Last Admin: 11/19/17 09:27 Dose: 40 mg Heparin Sodium (Porcine) (Heparin) 5,000 units SC Q8 KEKE PRN Reason: Protocol Last Admin: 11/20/17 05:52 Dose: 5,000 units Meropenem (Merrem Iv 1 Gm Premix) 50 mls @ 100 mls/hr IVPB Q8 KEKE PRN Reason: Protocol Stop: 11/23/17 08:04 Last Admin: 11/20/17 05:52 Dose: 100 mls/hr Sodium Chloride (Sodium Chloride 0.45%) 1,000 mls @ 80 mls/hr IV .[id number] [facility] Last Admin: 11/20/17 05:55 Dose: 80 mls/hr Vancomycin HCl (Vancomycin 1gm) 1 gm in 250 mls @ 167 mls/hr IVPB Q12H KEKE PRN Reason: Protocol Last Admin: 11/19/17 22:11 Dose: 167 mls/hr Insulin Human Regular (Humulin R Med) 0 units SC ACHS KEKE PRN Reason: Protocol Last Admin: 11/20/17 08:41 Dose: Not Given Lactulose (Enulose) 30 gm PO BID [facility] Last Admin: 11/19/17 17:39 Dose: Not Given Metformin HCl (Glucophage) 500 mg PO DAILY [facility] Last Admin: 11/19/17 09:27 Dose: 500 mg Oxycodone HCl (Oxycodone Immediate Release Tab) 10 mg PO Q6H PRN PRN Reason: Pain, severe (8-10) Last Admin: 11/20/17 05:52 Dose: 10 mg Pantoprazole Sodium (Protonix Ec Tab) 40 mg PO ACB [facility] Last Admin: 11/19/17 08:41 Dose: 40 mg Rifaximin (Xifaxan) 550 mg PO Q12 KEKE PRN Reason: Protocol Last Admin: 11/19/17 21:14 Dose: 550 mg Tramadol HCl (Ultram) 50 mg PO TID PRN PRN Reason: Pain, moderate (4-7) Last Admin: 11/18/17 18:31 Dose: 50 mg - Labs Labs: 11/20/17 06:00 11/20/17 06:00 PT 14.4 SECONDS (9.4-12.5) H 11/15/17 12:55 INR 1.25 11/15/17 12:55 APTT 28.0 Seconds (25.1-36.5) 11/15/17 12:55 - Constitutional Appears: No Acute Distress - Head Exam Head Exam: NORMAL INSPECTION - Eye Exam Eye Exam: Normal appearance Pupil Exam: NORMAL ACCOMODATION - ENT Exam ENT Exam: Normal Exam - Neck Exam Neck Exam: Normal Inspection. absent: Lymphadenopathy - Respiratory Exam Respiratory Exam: Clear to Ausculation Bilateral. absent: Rales, Rhonchi, Wheezes - Cardiovascular Exam Cardiovascular Exam: RRR, +S1, +S2, Murmur (systolic murmur 3/6 right sternal border). absent: Gallop, Rubs - GI/Abdominal Exam GI & Abdominal Exam: Soft. absent: Distended, Guarding, Tenderness, Rebound - Extremities Exam Extremities Exam: Normal Capillary Refill Additional comments: multiple areas of ecchymoses on b/l UE; RLE purpuric bullae on posterior aspect of ankle; LLE palpable purpura - Back Exam Back Exam: NORMAL INSPECTION - Neurological Exam Neurological Exam: Alert, Awake, Oriented x3 - Psychiatric Exam Psychiatric exam: Normal Affect, Normal Mood - Skin Skin Exam: Dry, Intact, Rash, Vesicles, Warm Assessment and Plan - Assessment and Plan (Free Text) Assessment: 62 yo M with PMH of ecompensated liver cirrhosis s/p TIPS with associated esophageal varices and portal hypertensive gastropathy, CAD s/p CABG, s/p valve replacement, HLD, HTN, DM2, GERD and gout admitted originally for neck swelling and dysphagia, which has since resolved. Patient is being evaluated for skin lesions on b/l LE's concerning for endocarditis with his h/o aortic valve replacement. However, vasculitis is in differential and will under go skin biopsy. Plan: - Afebrile - Thrombocytopenia is stable, (117,000 today) - Transfuse if Platelets < 10,000 or < 20,000 if febrile - ESR and CRP markedly elevated - Low C4 complement - F/u skin biopsy, PITER - F/u p-ANCA, c-ANCA, RF, cryoglobulin - Hep panel negative; HCV associated with Cryoglobulinemia Type III - Further management per ID, cardio, and primary Case discussed with attending. Johnnie Purdy, DO PGY2
--- NOTE | 2017-11-20 10:49 | CT ---
Date of service: 11/20/2017 PROCEDURE: CT Chest with contrast (Pulmonary Angiogram) HISTORY: r/o PE;elevated D dimer and tachycardic COMPARISON: None available. TECHNIQUE: Axial computed tomography images were obtained of the chest in the pulmonary arterial phase of enhancement. Coronal and sagittal reformatted images were created and reviewed. Intravenous contrast dose: 100 mL Omnipaque 350 Radiation dose: Total exam DLP = 438.86 mGy-cm. This CT exam was performed using one or more of the following dose reduction techniques: Automated exposure control, adjustment of the mA and/or kV according to patient size, and/or use of iterative reconstruction technique. FINDINGS: PULMONARY ARTERIES: Evaluation somewhat limited technically due to timing relative to contrast bolus. No evidence of pulmonary arterial filling defect. Subsegmental pulmonary artery branches are suboptimally evaluated, however. AORTA: Status post aortic valve replacement. No evidence of thoracic aortic aneurysm. LUNGS: No infiltrate. Subsegmental atelectasis left lower lobe. Linear scar/ atelectasis right lower PLEURAL SPACES: Lobe. Trace left pleural effusion. HEART: Normal size heart. Status post aortic valve replacement. No pericardial effusion. LYMPH NODES: No lymphadenopathy. BONES, CHEST WALL: Sternotomy wires noted. No acute fracture. Bilateral gynecomastia noted. OTHER FINDINGS: Evidence of hepatic cirrhosis. Mild splenomegaly. TIPS stent noted. Patency of TIPS stent cannot be evaluated on this arterial phase examination. Left adrenal nodule noted, 1.1 cm diameter. Likely adrenal adenoma by size criteria alone. This measures 17 Hounsfield units although this is a postcontrast study. Nevertheless, this is considered consistent with adrenal adenoma. Please note that in retrospect, on examination of 11/15/2017, 2 left adrenal masses are identified, only the smaller of which is included this examination. The larger mass on that examination measures approximately 2.4 cm in diameter. Consider further evaluation with opposed phase magnetic resonance imaging. IMPRESSION: No evidence of pulmonary embolism. Technically limited examination as described. Trace left pleural effusion. No pulmonary infiltrate. Hepatic cirrhosis and mild splenomegaly. TIPS stent. Left adrenal mass. In retrospect, there are 2 left adrenal masses as evident on prior CT of 11/15/2017. Consider further evaluation with opposed phase magnetic resonance imaging. Incidentally noted gynecomastia. A-P status post aortic valve replacement. Air peer view 90 percent
[2017-11-20 21:37] LABS: ANCA SCREEN NEGATIVE (NEGATIVE)
[2017-11-21 05:05] LABS: PHOSPHATIDYLSERINE AB IGA <20 U/mL (<20); PHOSPHATIDYLSERINE AB IGG <10 U/mL (<10); PHOSPHATIDYLSERINE AB IGM <25 U/mL (<25)
[2017-11-21] MEDS: Meropenem IV 1 gm in NS 50 ML IVPB SCH ×3 (05:22→21:31)
[2017-11-21 06:31] LABS: BASO # 0.01 K/mm3 (0.0-2.0); BASO % 0.1 % (0.0-3.0); EOS # 0.3 (0.0-0.7); EOS % 3.4 % (1.5-5.0); GRAN # 6.1 (1.4-6.5); GRAN % 76.4 % (50.0-68.0); HEMOGLOBIN 10.7 g/dL (14.0-18.0); LYMPH # 0.7 (1.2-3.4); LYMPH % 8.1 % (22.0-35.0); MEAN CELL VOLUME 92.2 fl (80.0-105.0); MEAN CORPUSCULAR HEMOGLOBIN 32.2 pg (25.0-35.0); MEAN PLATELET VOLUME 9.1 fl (7.0-11.0); RBC 3.32 10^6/uL (3.5-6.1); RED CELL DISTRIBUTION WIDTH 16.4 % (11.5-14.5)
[2017-11-21] MEDS: oxyCODONE 10 mg Immediate Release Tab PO PRN ×3 (06:49→23:48)
[2017-11-21 06:55] LABS: ALB/GLOB RATIO 0.6 (1.1-1.8); ALBUMIN 2.4 g/dL (3.0-4.8); ALT/SGPT 29 U/L (7-56); AST/SGOT 42 U/L (17-59); BLOOD UREA NITROGEN 6 mg/dL (7-21); CALCIUM 8.1 mg/dL (8.4-10.5); GFR NON-AFRICAN AMERICAN > 60
--- NOTE | 2017-11-21 07:27 | PN ---
Copied To: Terrence Zendejas MD Attending MD: Terrence Zendejas MD DATE: 11/20/2017 SUBJECTIVE: The patient was seen this Sunday at noontime in room 364, bed 1 with his sister Darnell at the bedside. The patient is much clinically improved since once I last saw him before the weekend. He is awake, alert, clear. White blood cell count has come down. He remains afebrile. Sed rate remains elevated. Lesions on the leg have blistered and turned purple, some have broken with bleeding. PHYSICAL EXAMINATION: HEAD AND NECK: Otherwise unremarkable. EXTREMITIES: Arm pain has improved with good range of motion. HEART: Regular. Soft murmur appreciated. Not tachycardic. LUNGS: Clear. ABDOMEN: Soft and nontender. PLAN: Continuing IV antibiotics, transesophageal echocardiogram is scheduled for tomorrow. Biopsy was done earlier today of one of the leg lesions, we will await pathology of that. Terrence Zendejas MD
--- NOTE | 2017-11-21 07:30 | CP.PCM.PN ---
<Coy Ferrari - Last Filed: 11/21/17 09:57> Subjective - Date & Time of Evaluation Date of Evaluation: 11/21/17 Time of Evaluation: 07:22 - Subjective Subjective: GI Fellow PGY4 He is feeling anxious for the procedure. States his breathing feels heavy, and abdomen feels full. No BM today or yesterday. Denies fever, chest pain. 5pt ROS completed and neg except for above. Objective - Vital Signs/Intake and Output Vital Signs (last 24 hours): Temp Pulse Resp BP Pulse Ox 98.6 F 90 19 117/59 L 98 11/20/17 17:14 11/21/17 06:00 11/20/17 17:14 11/20/17 17:14 11/20/17 17:14 - Medications Medications: Current Medications Furosemide (Lasix) 40 mg PO DAILY [facility] Last Admin: 11/20/17 10:33 Dose: 40 mg Heparin Sodium (Porcine) (Heparin) 5,000 units SC Q8 KEKE PRN Reason: Protocol Last Admin: 11/21/17 05:23 Dose: 5,000 units Meropenem (Merrem Iv 1 Gm Premix) 50 mls @ 100 mls/hr IVPB Q8 KEKE PRN Reason: Protocol Stop: 11/23/17 08:04 Last Admin: 11/21/17 05:22 Dose: 100 mls/hr Sodium Chloride (Sodium Chloride 0.45%) 1,000 mls @ 80 mls/hr IV .[id number] [facility] Last Admin: 11/20/17 05:55 Dose: 80 mls/hr Vancomycin HCl (Vancomycin 1gm) 1 gm in 250 mls @ 167 mls/hr IVPB Q12H [facility]KE PRN Reason: Protocol Last Admin: 11/20/17 23:05 Dose: 167 mls/hr Insulin Human Regular (Humulin R Med) 0 units SC ACHS KEKE PRN Reason: Protocol Last Admin: 11/20/17 21:36 Dose: Not Given Lactulose (Enulose) 30 gm PO BID [facility] Last Admin: 11/20/17 18:16 Dose: Not Given Metformin HCl (Glucophage) 500 mg PO DAILY [facility] Last Admin: 11/20/17 10:33 Dose: 500 mg Oxycodone HCl (Oxycodone Immediate Release Tab) 10 mg PO Q6H PRN PRN Reason: Pain, severe (8-10) Last Admin: 11/21/17 06:49 Dose: 10 mg Pantoprazole Sodium (Protonix Ec Tab) 40 mg PO ACB [facility] Last Admin: 11/20/17 10:34 Dose: 40 mg Tramadol HCl (Ultram) 50 mg PO TID PRN PRN Reason: Pain, moderate (4-7) Last Admin: 11/18/17 18:31 Dose: 50 mg - Labs Labs: 11/20/17 06:00 11/21/17 06:00 PT 14.4 SECONDS (9.4-12.5) H 11/15/17 12:55 INR 1.25 11/15/17 12:55 APTT 28.0 Seconds (25.1-36.5) 11/15/17 12:55 - Constitutional Appears: Non-toxic, No Acute Distress - Head Exam Head Exam: NORMAL INSPECTION - Eye Exam Eye Exam: Normal appearance - ENT Exam ENT Exam: Mucous Membranes Moist - Respiratory Exam Respiratory Exam: Clear to Ausculation Bilateral, NORMAL BREATHING PATTERN - Cardiovascular Exam Cardiovascular Exam: REGULAR RHYTHM - GI/Abdominal Exam GI & Abdominal Exam: Soft, Normal Bowel Sounds. absent: Tenderness - Extremities Exam Extremities Exam: Normal Inspection - Neurological Exam Neurological Exam: Alert, Awake, Oriented x3 - Skin Skin Exam: Dry, Normal Color Assessment and Plan - Assessment and Plan (Free Text) Assessment: 62 year old male with a past medical history significant for decompensated liver cirrhosis s/p TIPS with associated esophageal varices and portal hypertensive gastropathy, CAD s/p CABG, s/p valve replacement, HLD, HTN, DM2 , GERD and gout who presented with neck swelling and dysphagia of four days duration. GI was consulted as patient is known to Dr. Rosen due to his history of liver cirrhosis. #Presumed endocarditis #Cirrhosis s/p TIPS. Hx of HE, massive ascites. Plan: -CT Abdomen/Pelvis showed TIPS shunt in place with no evidence of static mass or perihepatic fluid -U/S abd of TIPS is normal -Current MELD Score: 10 -Continue Lasix, Lactulose -Restart Xifaxin to prevent hepatic encephalopathy (high risk) -Check ammonia lvl -Start spironolactone 50mg daily. Monitor weight (kg) daily. -Regular Diet -Continue daily PPI -sq heparin for DVT prophylaxis -Close monitoring of electrolytes and CBC and liver function tests -Patient to undergo Bacterial Endocarditis vs rheum. workup including PITER, skin biopsy, blood work. <Jessika,Kovil V - Last Filed: 11/21/17 22:17> Objective - Vital Signs/Intake and Output Vital Signs (last 24 hours): Temp Pulse Resp BP Pulse Ox 99.3 F 89 20 103/61 97 11/21/17 16:33 11/21/17 18:00 11/21/17 16:33 11/21/17 16:33 11/21/17 16:33 Intake and Output: 11/21/17 11/22/17 18:59 06:59 Intake Total 1100 Output Total 725 Balance 375 - Medications Medications: Current Medications Furosemide (Lasix) 40 mg PO DAILY [facility] Last Admin: 11/21/17 10:40 Dose: 40 mg Heparin Sodium (Porcine) (Heparin) 5,000 units SC Q8 KEKE PRN Reason: Protocol Last Admin: 11/21/17 21:36 Dose: 5,000 units Meropenem (Merrem Iv 1 Gm Premix) 50 mls @ 100 mls/hr IVPB Q8 KEKE PRN Reason: Protocol Stop: 11/23/17 08:04 Last Admin: 11/21/17 21:31 Dose: 100 mls/hr Sodium Chloride (Sodium Chloride 0.45%) 1,000 mls @ 80 mls/hr IV .[id number] [facility] Last Admin: 11/20/17 05:55 Dose: 80 mls/hr Vancomycin HCl (Vancomycin 1gm) 1 gm in 250 mls @ 167 mls/hr IVPB Q12H KEKE PRN Reason: Protocol Last Admin: 11/21/17 21:31 Dose: 167 mls/hr Insulin Human Regular (Humulin R Med) 0 units SC ACHS KEKE PRN Reason: Protocol Last Admin: 11/21/17 17:26 Dose: Not Given Lactulose (Enulose) 30 gm PO BID [facility] Last Admin: 11/21/17 17:25 Dose: Not Given Metformin HCl (Glucophage) 500 mg PO DAILY [facility] Last Admin: 11/21/17 10:40 Dose: 500 mg Oxycodone HCl (Oxycodone Immediate Release Tab) 10 mg PO Q6H PRN PRN Reason: Pain, severe (8-10) Last Admin: 11/21/17 15:38 Dose: 10 mg Pantoprazole Sodium (Protonix Ec Tab) 40 mg PO ACB [facility] Last Admin: 11/21/17 12:44 Dose: 40 mg Rifaximin (Xifaxan) 550 mg PO BID [facility] PRN Reason: Protocol Last Admin: 11/21/17 17:25 Dose: 550 mg Tramadol HCl (Ultram) 50 mg PO TID PRN PRN Reason: Pain, moderate (4-7) Last Admin: 11/18/17 18:31 Dose: 50 mg - Labs Labs: 11/21/17 06:00 11/21/17 06:00 PT 14.4 SECONDS (9.4-12.5) H 11/15/17 12:55 INR 1.25 11/15/17 12:55 APTT 28.0 Seconds (25.1-36.5) 11/15/17 12:55 Attending/Attestation - Attestation I have personally seen and examined this patient.: Yes I have fully participated in the care of the patient.: Yes I have reviewed all pertinent clinical information, including history, physical exam and plan: Yes Notes (Text): This is an addendum to GI progress report dictated by the GI Fellow.The patient was seen and examined earlier. Medical records, lab studies, imagings were reviewed. Last 24 hours events reviewed. Agreed with the above treatment plan as outlined in GI Fellow 's notes with the addition of the following patient did not take lactulose yesterday and no BM Presently nothing by mouth for PITER at the time of exam Continue the antibiotics Discussed with the nursing staff to continue lactulose We will restart Xifaxan if needed for hepatic encephalopathy 11/21/17 22:17
--- NOTE | 2017-11-21 07:59 | CP.PCM.PN ---
<Lina Carrera - Last Filed: 11/21/17 13:57> Subjective - Date & Time of Evaluation Date of Evaluation: 11/21/17 Time of Evaluation: 10:14 - Subjective Subjective: [id number] ID Progress note for Dr. Seals Patient seen and examined at bedside. No acute events overnight. Patient NPO this AM for PITER at 10am. Patient POD#1 bedside skin biopsy of purpuric lesions. No acute complaints this AM. LLE lesions continue to drain and RLE lesions continue to be painful and bullous in nature. Patient reports pain in b/l LE is tolerable but still there. He denies other complaints of fever, chills, headache , dizziness, chest pain, palpitations, SOB, cough, abd pain, nausea, vomiting, bowel/bladder complaints. Objective - Vital Signs/Intake and Output Vital Signs (last 24 hours): Temp Pulse Resp BP Pulse Ox 98.3 F 102 H 18 104/61 98 11/21/17 07:36 11/21/17 07:36 11/21/17 07:36 11/21/17 07:36 11/21/17 07:36 - Medications Medications: Current Medications Furosemide (Lasix) 40 mg PO DAILY [facility] Last Admin: 11/20/17 10:33 Dose: 40 mg Heparin Sodium (Porcine) (Heparin) 5,000 units SC Q8 [facility] PRN Reason: Protocol Last Admin: 11/21/17 05:23 Dose: 5,000 units Meropenem (Merrem Iv 1 Gm Premix) 50 mls @ 100 mls/hr IVPB Q8 [facility] PRN Reason: Protocol Stop: 11/23/17 08:04 Last Admin: 11/21/17 05:22 Dose: 100 mls/hr Sodium Chloride (Sodium Chloride 0.45%) 1,000 mls @ 80 mls/hr IV .[id number] [facility] Last Admin: 11/20/17 05:55 Dose: 80 mls/hr Vancomycin HCl (Vancomycin 1gm) 1 gm in 250 mls @ 167 mls/hr IVPB Q12H [facility] PRN Reason: Protocol Last Admin: 11/20/17 23:05 Dose: 167 mls/hr Insulin Human Regular (Humulin R Med) 0 units SC ACHS [facility] PRN Reason: Protocol Last Admin: 11/20/17 21:36 Dose: Not Given Lactulose (Enulose) 30 gm PO BID [facility] Last Admin: 11/20/17 18:16 Dose: Not Given Metformin HCl (Glucophage) 500 mg PO DAILY [facility] Last Admin: 11/20/17 10:33 Dose: 500 mg Oxycodone HCl (Oxycodone Immediate Release Tab) 10 mg PO Q6H PRN PRN Reason: Pain, severe (8-10) Last Admin: 11/21/17 06:49 Dose: 10 mg Pantoprazole Sodium (Protonix Ec Tab) 40 mg PO ACB [facility] Last Admin: 11/20/17 10:34 Dose: 40 mg Rifaximin (Xifaxan) 550 mg PO BID [facility] PRN Reason: Protocol Tramadol HCl (Ultram) 50 mg PO TID PRN PRN Reason: Pain, moderate (4-7) Last Admin: 11/18/17 18:31 Dose: 50 mg - Labs Labs: 11/21/17 06:00 11/21/17 06:00 PT 14.4 SECONDS (9.4-12.5) H 11/15/17 12:55 INR 1.25 11/15/17 12:55 APTT 28.0 Seconds (25.1-36.5) 11/15/17 12:55 - Constitutional Appears: Non-toxic, No Acute Distress - Head Exam Head Exam: ATRAUMATIC, NORMAL INSPECTION, NORMOCEPHALIC - Eye Exam Eye Exam: EOMI, Normal appearance, PERRL. absent: Conjunctival injection, Scleral icterus Pupil Exam: NORMAL ACCOMODATION - ENT Exam ENT Exam: Mucous Membranes Moist - Neck Exam Neck Exam: Full ROM, Normal Inspection - Respiratory Exam Respiratory Exam: Clear to Ausculation Bilateral, NORMAL BREATHING PATTERN. absent: Accessory Muscle Use, Rales, Rhonchi, Wheezes, Respiratory Distress - Cardiovascular Exam Cardiovascular Exam: REGULAR RHYTHM, +S1, +S2. absent: Murmur - GI/Abdominal Exam GI & Abdominal Exam: Soft, Normal Bowel Sounds. absent: Firm, Guarding, Rigid, Tenderness - Rectal Exam Rectal Exam: Deferred - Extremities Exam Extremities Exam: absent: Pedal Edema Additional comments: RLE dressing noted s/p skin biopsy of lesion RLE purpuric bullae on posterior ankle; LLE palpable purpura draining serosanguinous fluid 3 1cm purpuric lesions noted L knee Ecchymoses noted b/l UE - Neurological Exam Neurological Exam: Alert, Awake, Oriented x3 - Psychiatric Exam Psychiatric exam: Normal Affect, Normal Mood - Skin Skin Exam: Dry, Intact, Normal Color, Warm Assessment and Plan - Assessment and Plan (Free Text) Assessment: 62yo male PMHx decompensated liver cirrhosis MELD 10 s/p TIPS with associated esophageal varices and portal HTN gastropathy, CAD s/p CABG, s/p bovine valve replacement December 2016, HLD, HTN, DM2, GERD and gout admitted originally for neck swelling and dysphagia- currently resolved. During hospital course patient developed tender nodules and skin lesions consistent with Osler nodes concerning for vasculitis vs endocarditis. Plan: -f/u skin biopsy [patient is POD#1 skin bx] -PITER: negative for signs of valve vegetations [pls see full report] -MRI orbit/neck/face: area of edema and enhancement in the left parapharyngeal space 3.8 x 3 x 5cm. this could be inflammatory/neoplastic. No evidence of abscess. -LE dopplers negative for DVT -CTA negative for PE -IV Vancomycin 1gm q12 started 11/16 -IV Merrem 1gm q8 started 11/14 -blood culture prelim negative x 1 11/16 -blood culture final negative x 2 11/14 -Group A Strep throat culture negative -RPR, Hepatitis panel, HIV, Legionella, Group A Strep negative -B Henselae, bartonella henselae IgM negative -Bartonella pathak IgM and IgG negative -Brucella IgM and IgG negative -Histoplasma negative -Beta 2 glycoprotein Ab elevated 26 Beta 2 GPI IgG Ab and Beta 2 GPI IgM Ab negative Anti-cardiolipin IgG Ab, IgA Ab, IgM Ab negative Phosphatidulserine IgG, IgA, IgM negative -Complement C4 low 11.5 and C3 low 79 f/u C2 -Mira negative, ANCA negative -Factor V Leiden negative -f/u further workup -Continue management as per primary Discussed with Dr. Arnel Carrera PGY3 <Wilfredo Seals - Last Filed: 11/21/17 16:48> Objective - Vital Signs/Intake and Output Vital Signs (last 24 hours): Temp Pulse Resp BP Pulse Ox 99.3 F 94 H 20 103/61 97 11/21/17 16:33 11/21/17 16:33 11/21/17 16:33 11/21/17 16:33 11/21/17 16:33 Intake and Output: 11/21/17 11/21/17 06:59 18:59 Intake Total 200 Balance 200 - Medications Medications: Current Medications Furosemide (Lasix) 40 mg PO DAILY [facility] Last Admin: 11/21/17 10:40 Dose: 40 mg Heparin Sodium (Porcine) (Heparin) 5,000 units SC Q8 [facility] PRN Reason: Protocol Last Admin: 11/21/17 15:31 Dose: 5,000 units Meropenem (Merrem Iv 1 Gm Premix) 50 mls @ 100 mls/hr IVPB Q8 [facility] PRN Reason: Protocol Stop: 11/23/17 08:04 Last Admin: 11/21/17 15:31 Dose: 100 mls/hr Sodium Chloride (Sodium Chloride 0.45%) 1,000 mls @ 80 mls/hr IV .[id number] [facility] Last Admin: 11/20/17 05:55 Dose: 80 mls/hr Vancomycin HCl (Vancomycin 1gm) 1 gm in 250 mls @ 167 mls/hr IVPB Q12H [facility] PRN Reason: Protocol Last Admin: 11/21/17 12:42 Dose: 167 mls/hr Insulin Human Regular (Humulin R Med) 0 units SC ACHS [facility] PRN Reason: Protocol Last Admin: 11/21/17 11:32 Dose: Not Given Lactulose (Enulose) 30 gm PO BID [facility] Last Admin: 11/21/17 12:38 Dose: 30 gm Metformin HCl (Glucophage) 500 mg PO DAILY [facility] Last Admin: 11/21/17 10:40 Dose: 500 mg Oxycodone HCl (Oxycodone Immediate Release Tab) 10 mg PO Q6H PRN PRN Reason: Pain, severe (8-10) Last Admin: 11/21/17 15:38 Dose: 10 mg Pantoprazole Sodium (Protonix Ec Tab) 40 mg PO ACB [facility] Last Admin: 11/21/17 12:44 Dose: 40 mg Rifaximin (Xifaxan) 550 mg PO BID [facility] PRN Reason: Protocol Last Admin: 11/21/17 10:43 Dose: 550 mg Tramadol HCl (Ultram) 50 mg PO TID PRN PRN Reason: Pain, moderate (4-7) Last Admin: 11/18/17 18:31 Dose: 50 mg - Labs Labs: 11/21/17 06:00 11/21/17 06:00 PT 14.4 SECONDS (9.4-12.5) H 11/15/17 12:55 INR 1.25 11/15/17 12:55 APTT 28.0 Seconds (25.1-36.5) 11/15/17 12:55 Assessment and Plan - Assessment and Plan (Free Text) Plan: Infectious Diseases Attending Physician Addendum Patient seen and examined, discussed with biomedical repair technician. I have reviewed the pertinent clinical information for the patient, including history of present illness, medical, personal and social histories, lab results and imaging findings. I agree with the above findings, assessment and plan. In addition, will continue Vancomycin, Merrem for this patient with possible vasculitic lesions on hands and legs and feet, source undetermined. PITER was done today and it did not show vegetations, making endocarditis unlikely. Will follow up final blood cx results (asked lab to hold blood cx for HCEK organisms), follow up Bartonella, Brucella Serologies, Q fever serology, Chlamydia tests, Galactomannan and Histoplasma tests. For PITER tomorrow and will follow up results (has bovine valve). Will await results of the skin biopsy.
[2017-11-21] MEDS: Insulin Reg-MEDIUM-Coverage SC SCH ×4 (08:13→21:35)
[2017-11-21] MEDS ORDERED: Flumazenil 0.1 mg/ml Inj (5ml) IVP ONE (10:47)
[2017-11-21] MEDS ORDERED: Midazolam 2 MG/2 ML VIAL ONE (10:47)
[2017-11-21] MEDS ORDERED: Naloxone 0.4 mg/ml Inj (Adult) ONE (10:47)
[2017-11-21] MEDS ORDERED: Midazolam 2 MG/2 ML VIAL IV ONE ×2 (10:48→11:00)
--- NOTE | 2017-11-21 11:28 | CARD ---
APPROVED REPORT Date of service: 11/21/2017 EXAM: Two-dimensional and M-mode echocardiogram with Doppler and color Doppler. LEFT VENTRICLE The left ventricle is normal size. There is normal left ventricular wall thickness. The left ventricular function is normal. The left ventricular ejection fraction is within the normal range. There is normal LV segmental wall motion. RIGHT VENTRICLE The right ventricle is normal size. The right ventricular systolic function is normal. ATRIA The left atrium is mildly dilated. no thrombus is seen in the left atrium or atrial appendage. The right atrium size is normal. Eustachian valve is noted in the right atrium. The interatrial septum is intact with no evidence for an atrial septal defect. AORTIC VALVE No aortic regurgitation is present. There is no aortic valvular stenosis. There are no vegetation present on this prosthetic aortic valve. There is a normally functioning bioprosthetic aortic valve prosthesis. MITRAL VALVE The mitral valve is mildly thickened but opens well. Mitral regurgitation is moderate. TRICUSPID VALVE The tricuspid valve is normal in structure. There is mild tricuspid regurgitation. PULMONIC VALVE The pulmonary valve is normal in structure. GREAT VESSELS The aortic root is normal in size. The decending aorta ihas mild atherosclerotic plaque present. The IVC is normal in size and collapses >50% with inspiration. PERICARDIAL EFFUSION There is no pleural effusion. There is no pericardial effusion. <Conclusion> Dilated LA. Normal LV size and systolic function. Normally functioning aortic bioprosthesis with no evidence of vegetations present. Thickened mitral valve with no vegetation seen. No tricuspid valve vegetation seen. Moderate MR. Mild TR.
[2017-11-21 11:40] VITALS: RESP 20
--- NOTE | 2017-11-21 11:56 | PN ---
Copied To: Beni Scanlon MD Attending MD: Beni Scanlon MD DATE: 11/21/2017 SUBJECTIVE: The patient is seen lying in bed on remote telemetry. He is comfortable at the present time. He remains afebrile. CURRENT MEDICATIONS: Include Glucophage, subcutaneous heparin, insulin, Lasix 40 mg daily, meropenem, oxycodone, Protonix, tramadol, vancomycin and Rifaximin. OBJECTIVE: GENERAL: He is a middle-aged man who appears comfortable at rest. VITAL SIGNS: His blood pressure is 104/60 with a pulse of 90 and sinus, respirations are 16. He is afebrile. HEENT: No JVD. CHEST: A few scattered rhonchi. HEART: PMI in normal position with systolic murmur at the left sternal border. ABDOMEN: Soft, nontender. Normoactive bowel sounds. EXTREMITIES: No edema. Dressings are present on his right and left lower extremities at the site of his recent skin biopsy as well as some weeping of his cutaneous lesions on his left ankle. DIAGNOSTIC DATA: Potassium 3.9, BUN and creatinine are 6 and 0.7. White count 8 and hemoglobin and hematocrit 10 and 30.6 with platelet count of 116,000. IMPRESSION: 1. Extensive skin lesions, etiology unclear. Workup in progress. Skin biopsy results pending. Lesions suspicious for immune complex deposition. 2. Known coronary artery disease and aortic stenosis, status post prior bypass surgery and aortic valve replacement. 3. History of alcohol cirrhosis. 4. Anemia and thrombocytopenia. RECOMMENDATIONS: The patient will undergo transesophageal echocardiogram this morning to exclude any evidence of vegetations on his prostatic aortic valve. Further recommendations will be made based upon those results. Beni Scanlon MD
[2017-11-21] MEDS: Vancomycin 1gm in NS 250ml 1 GM/250 ML BAG IVPB SCH ×2 (12:42→21:31)
[2017-11-21] MEDS: Pantoprazole 40 mg EC Tab PO SCH (12:44)
--- NOTE | 2017-11-21 12:55 | CP.PCM.PN ---
Subjective - Date & Time of Evaluation Date of Evaluation: 11/21/17 Time of Evaluation: 12:51 - Subjective Subjective: Heme/Onc Progress Note for Dr. Jones -- Johnnie Purdy DO PGY2 Patient seen and examined at bedside. No acute overnight events. Patient had skin biopsy yesterday and will have PITER today. Patient states some of the bullous lesions on his LE's burst, but denies any pain. Patient denied CP, SOB, n/v/d, abdominal pain, fever, chills, SERRATO, or dizziness. Objective - Vital Signs/Intake and Output Vital Signs (last 24 hours): Temp Pulse Resp BP Pulse Ox 98 F 92 H 20 106/61 96 11/21/17 12:12 11/21/17 12:12 11/21/17 12:12 11/21/17 12:12 11/21/17 12:12 Intake and Output: 11/21/17 11/21/17 06:59 18:59 Intake Total 200 Balance 200 - Medications Medications: Current Medications Furosemide (Lasix) 40 mg PO DAILY [facility] Last Admin: 11/21/17 10:40 Dose: 40 mg Heparin Sodium (Porcine) (Heparin) 5,000 units SC Q8 [facility] PRN Reason: Protocol Last Admin: 11/21/17 05:23 Dose: 5,000 units Meropenem (Merrem Iv 1 Gm Premix) 50 mls @ 100 mls/hr IVPB Q8 [facility] PRN Reason: Protocol Stop: 11/23/17 08:04 Last Admin: 11/21/17 05:22 Dose: 100 mls/hr Sodium Chloride (Sodium Chloride 0.45%) 1,000 mls @ 80 mls/hr IV .[id number] [facility] Last Admin: 11/20/17 05:55 Dose: 80 mls/hr Vancomycin HCl (Vancomycin 1gm) 1 gm in 250 mls @ 167 mls/hr IVPB Q12H [facility] PRN Reason: Protocol Last Admin: 11/21/17 12:42 Dose: 167 mls/hr Insulin Human Regular (Humulin R Med) 0 units SC ACHS [facility] PRN Reason: Protocol Last Admin: 11/21/17 08:13 Dose: Not Given Lactulose (Enulose) 30 gm PO BID [facility] Last Admin: 11/21/17 12:38 Dose: 30 gm Metformin HCl (Glucophage) 500 mg PO DAILY [facility] Last Admin: 11/21/17 10:40 Dose: 500 mg Oxycodone HCl (Oxycodone Immediate Release Tab) 10 mg PO Q6H PRN PRN Reason: Pain, severe (8-10) Last Admin: 11/21/17 06:49 Dose: 10 mg Pantoprazole Sodium (Protonix Ec Tab) 40 mg PO ACB [facility] Last Admin: 11/21/17 12:44 Dose: 40 mg Rifaximin (Xifaxan) 550 mg PO BID [facility] PRN Reason: Protocol Last Admin: 11/21/17 10:43 Dose: 550 mg Tramadol HCl (Ultram) 50 mg PO TID PRN PRN Reason: Pain, moderate (4-7) Last Admin: 11/18/17 18:31 Dose: 50 mg - Labs Labs: 11/21/17 06:00 11/21/17 06:00 PT 14.4 SECONDS (9.4-12.5) H 11/15/17 12:55 INR 1.25 11/15/17 12:55 APTT 28.0 Seconds (25.1-36.5) 11/15/17 12:55 - Constitutional Appears: No Acute Distress - Head Exam Head Exam: NORMAL INSPECTION - Eye Exam Eye Exam: Normal appearance - ENT Exam ENT Exam: Normal Exam - Neck Exam Neck Exam: Normal Inspection - Respiratory Exam Respiratory Exam: Clear to Ausculation Bilateral. absent: Rales, Rhonchi, Wheezes - Cardiovascular Exam Cardiovascular Exam: RRR, +S1, +S2. absent: Gallop, Rubs, Murmur - GI/Abdominal Exam GI & Abdominal Exam: Soft. absent: Distended, Guarding, Tenderness, Rebound - Extremities Exam Extremities Exam: absent: Calf Tenderness, Joint Swelling, Tenderness Additional comments: purpuric/bullous lesions on b/l LE L>R - Back Exam Back Exam: NORMAL INSPECTION - Neurological Exam Neurological Exam: Alert, Awake, Oriented x3 - Psychiatric Exam Psychiatric exam: Normal Affect, Normal Mood - Skin Skin Exam: Dry, Intact, Normal Color, Warm Assessment and Plan - Assessment and Plan (Free Text) Assessment: 62 yo M with PMH of ecompensated liver cirrhosis s/p TIPS with associated esophageal varices and portal hypertensive gastropathy, CAD s/p CABG, s/p valve replacement, HLD, HTN, DM2, GERD and gout admitted originally for neck swelling and dysphagia, which has since resolved. Patient is being evaluated for skin lesions on b/l LE's concerning for possible vasculitis. Endocarditis unlikely with negative cultures, no fever, and negative PITER. Plan: - Will r/o vasculitis; cryoglobulinemia, IgA vasculitis, and hypersensitivity vasculitis included in differential - F/u RF, cryoglobulin - F/u skin biopsy - ESR and CRP markedly elevated - Low C3, C4 complement - Hep panel negative; HCV associated with Cryoglobulinemia Type II/III - Negative p-ANCA and c-ANCA; unlikely Enedelia's or Churg-Compa - Thrombocytopenia is stable, (116,000 today) - Transfuse if Platelets < 10,000 or < 20,000 if febrile - PITER showed normal functioning aortic bioprosthesis with no evidence of vegetations, nor are vegetations seen on mitral and tricuspid - Further management per ID, cardio, and primary Case discussed with attending. Johnnie Purdy, DO PGY2
[2017-11-21 18:14] LABS: C. PNEUMONIAE IGM 1:40 (<1:10); C. PSITTACI IGA <1:16 (<1:16); C. PSITTACI IGG <1:64 (<1:64); C. PSITTACI IGM <1:10 (<1:10)
[2017-11-22] MEDS: Sodium Chloride 0.45% 1,000 ML IV SCH (02:30)
[2017-11-22] MEDS: Meropenem IV 1 gm in NS 50 ML IVPB SCH (05:27)
[2017-11-22] MEDS: oxyCODONE 10 mg Immediate Release Tab PO PRN ×2 (05:46→11:55)
--- NOTE | 2017-11-22 07:36 | CP.PCM.PN ---
<Lina Carrera - Last Filed: 11/22/17 13:28> Subjective - Date & Time of Evaluation Date of Evaluation: 11/22/17 Time of Evaluation: 08:00 - Subjective Subjective: Pgy3 ID Progress Note for Dr. Seals Patient seen and examined sitting up in bed eating breakfast. No acute events overnight as per nursing and patient was in no acute distress when I saw him this AM. POD#2 s/p bedside skin biopsy. His RLE lesions have been improving and are not as tense however he continues to have pain in b/l LE. His LLE lesions continue to drain serosanguinous fluid. Patient reports his RUE continues to feel a little "tight" and that although his b/l hands swelling and skin changes have improved greatly he is unable to flex all 10 fingers completely. Patient was afebrile and had no acute complaints of fever, chills, headache, dizziness, chest pain, palpitations, SOB, cough, abd pain, nausea, vomiting, bowel/bladder complaints. Patient is eating well. Objective - Vital Signs/Intake and Output Vital Signs (last 24 hours): Temp Pulse Resp BP Pulse Ox 99.3 F 87 20 103/61 97 11/21/17 16:33 11/22/17 02:00 11/21/17 16:33 11/21/17 16:33 11/21/17 16:33 - Medications Medications: Current Medications Furosemide (Lasix) 40 mg PO DAILY [facility] [place] Last Admin: 11/21/17 10:40 Dose: 40 mg Heparin Sodium (Porcine) (Heparin) 5,000 units SC Q8 [facility] PRN Reason: Protocol Last Admin: 11/22/17 05:28 Dose: 5,000 units Meropenem (Merrem Iv 1 Gm Premix) 50 mls @ 100 mls/hr IVPB Q8 [facility] PRN Reason: Protocol Stop: 11/23/17 08:04 Last Admin: 11/22/17 05:27 Dose: 100 mls/hr Sodium Chloride (Sodium Chloride 0.45%) 1,000 mls @ 80 mls/hr IV .[id number] [facility] [place] Last Admin: 11/22/17 02:30 Dose: 80 mls/hr Vancomycin HCl (Vancomycin 1gm) 1 gm in 250 mls @ 167 mls/hr IVPB Q12H [facility] PRN Reason: Protocol Last Admin: 11/21/17 21:31 Dose: 167 mls/hr Insulin Human Regular (Humulin R Med) 0 units SC ACHS [facility] [place] PRN Reason: Protocol Last Admin: 11/21/17 21:35 Dose: Not Given Lactulose (Enulose) 30 gm PO BID [facility] [place] Last Admin: 11/21/17 17:25 Dose: Not Given Metformin HCl (Glucophage) 500 mg PO DAILY [facility] [place] Last Admin: 11/21/17 10:40 Dose: 500 mg Oxycodone HCl (Oxycodone Immediate Release Tab) 10 mg PO Q6H PRN PRN Reason: Pain, severe (8-10) Last Admin: 11/22/17 05:46 Dose: 10 mg Pantoprazole Sodium (Protonix Ec Tab) 40 mg PO ACB [facility] Last Admin: 11/21/17 12:44 Dose: 40 mg Rifaximin (Xifaxan) 550 mg PO BID [facility] [place] PRN Reason: Protocol Last Admin: 11/21/17 17:25 Dose: 550 mg Tramadol HCl (Ultram) 50 mg PO TID PRN PRN Reason: Pain, moderate (4-7) Last Admin: 11/18/17 18:31 Dose: 50 mg - Labs Labs: 11/21/17 06:00 11/21/17 06:00 PT 14.4 SECONDS (9.4-12.5) H 11/15/17 12:55 INR 1.25 11/15/17 12:55 APTT 28.0 Seconds (25.1-36.5) 11/15/17 12:55 - Constitutional Appears: Non-toxic, No Acute Distress - Head Exam Head Exam: ATRAUMATIC, NORMAL INSPECTION, NORMOCEPHALIC - Eye Exam Eye Exam: EOMI, Normal appearance, PERRL. absent: Conjunctival injection, Scleral icterus Pupil Exam: NORMAL ACCOMODATION - ENT Exam ENT Exam: Mucous Membranes Moist - Neck Exam Neck Exam: Full ROM. absent: Lymphadenopathy - Respiratory Exam Respiratory Exam: Clear to Ausculation Bilateral, NORMAL BREATHING PATTERN. absent: Accessory Muscle Use, Rales, Rhonchi, Wheezes, Respiratory Distress - Cardiovascular Exam Cardiovascular Exam: REGULAR RHYTHM, +S1, +S2, Murmur (systolic 3/6) - GI/Abdominal Exam GI & Abdominal Exam: Soft, Normal Bowel Sounds. absent: Firm, Guarding, Rigid, Tenderness - Rectal Exam Rectal Exam: Deferred - Extremities Exam Extremities Exam: absent: Normal Inspection, Pedal Edema Additional comments: RLE purpuric bullae on posterior ankle- improved and decreasing in size; LLE palpable purpura draining serosanguinous fluid 3 1cm purpuric lesions noted L knee- healed Ecchymoses noted b/l UE - Back Exam Back Exam: NORMAL INSPECTION. absent: rash noted - Neurological Exam Neurological Exam: Alert, Awake, CN II-XII Intact, Oriented x3 - Psychiatric Exam Psychiatric exam: Normal Affect, Normal Mood - Skin Skin Exam: Dry Assessment and Plan - Assessment and Plan (Free Text) Assessment: 62yo male PMHx decompensated liver cirrhosis MELD 10 s/p TIPS with associated esophageal varices and portal HTN gastropathy, CAD s/p CABG, s/p bovine valve replacement December 2016, HLD, HTN, DM2, GERD and gout admitted originally for neck swelling and dysphagia- currently resolved. During hospital course patient developed tender nodules and skin lesions consistent with Osler nodes concerning for vasculitis. Plan: -f/u skin biopsy [patient is POD#2 skin bx] -PITER: negative for signs of valve vegetations [pls see full report] -Q Fever Phase II IgM Ab Positive H -Patient started on Doxycycline 100mg po bid 11/22 and Rocephin 1gm qd 11/22 -C Pneumoniae IgG Ab, IgA Ab, IgM Ab all high CXR on admission: no acute disease -MRI orbit/neck/face: area of edema and enhancement in the left parapharyngeal space 3.8 x 3 x 5cm. this could be inflammatory/neoplastic. No evidence of abscess. -LE dopplers negative for DVT -CTA negative for PE -blood culture negative x 1 11/16 -blood culture negative x 2 11/14 -Group A Strep throat culture negative -RPR, Hepatitis panel, HIV, Legionella, Group A Strep negative -B Henselae, bartonella henselae IgM negative -Bartonella pathak IgM and IgG negative -Brucella IgM and IgG negative -Histoplasma negative -Beta 2 glycoprotein Ab elevated 26 Beta 2 GPI IgG Ab and Beta 2 GPI IgM Ab negative Anti-cardiolipin IgG Ab, IgA Ab, IgM Ab negative Phosphatidulserine IgG, IgA, IgM negative -Complement C4 low 11.5 and C3 low 79 f/u C2 -Mira negative, ANCA negative -Factor V Leiden negative -f/u further workup -Continue management as per primary -Upon Discharge patient encouraged to follow up in clinic with Dr. Dallas. Discussed with Dr. Arnel Carrera PGY3 <ArnelWilfredo Vincmalaika Casey - Last Filed: 11/22/17 21:11> Objective - Vital Signs/Intake and Output Vital Signs (last 24 hours): Temp Pulse Resp BP Pulse Ox 98.1 F 97 H 20 107/60 98 11/22/17 08:31 11/22/17 08:31 11/22/17 08:31 11/22/17 09:30 11/22/17 08:31 - Labs Labs: 11/22/17 08:30 11/22/17 08:30 PT 14.4 SECONDS (9.4-12.5) H 11/15/17 12:55 INR 1.25 11/15/17 12:55 APTT 28.0 Seconds (25.1-36.5) 11/15/17 12:55 Assessment and Plan - Assessment and Plan (Free Text) Plan: Infectious Diseases Attending Physician Addendum Patient seen and examined, discussed with medical research assistant. I have reviewed the pertinent clinical information for the patient, including history of present illness, medical, personal and social histories, lab results and imaging findings. I agree with the above findings, assessment and plan. In addition, will continue Vancomycin, Merrem for this patient with possible vasculitic lesions on hands and legs and feet, source undetermined. PITER was doneand it did not show vegetations, making endocarditis unlikely but will still follow up final blood cx results (asked lab to hold blood cx for HACEK organisms), follow up Bartonella, Brucella Serologies, Galactomannan and Histoplasma tests.Will await results of the skin biopsy. Q fever serology, Chlamydia tests are equivocal - will start Doxycycline, change Merrem to Rocephin and d/c Vancomycin. Discussed with Dr. Zendejas - may consider Prednisone for the skin lesions.
[2017-11-22 08:31] VITALS: PULSE 97; TEMP 98.1; O2SAT 98
[2017-11-22 08:36] LABS: BASO # 0.01 K/mm3 (0.0-2.0); BASO % 0.1 % (0.0-3.0); EOS # 0.2 (0.0-0.7); EOS % 2.5 % (1.5-5.0); GRAN # 6.85 (1.4-6.5); GRAN % 81.4 % (50.0-68.0); HEMOGLOBIN 10.9 g/dL (14.0-18.0); LYMPH # 0.7 (1.2-3.4); LYMPH % 8.8 % (22.0-35.0); MEAN CELL VOLUME 91.6 fl (80.0-105.0); MEAN CORPUSCULAR HEMOGLOBIN 32.5 pg (25.0-35.0); MEAN CORPUSCULAR HGB CONC 35.5 g/dl (31.0-37.0); MEAN PLATELET VOLUME 8.9 fl (7.0-11.0); MONO # 0.6 (0.1-0.6); MONO % 7.2 % (1.0-6.0); RBC 3.35 10^6/uL (3.5-6.1); RED CELL DISTRIBUTION WIDTH 16.3 % (11.5-14.5); WHITE BLOOD COUNT 8.4 10^3/ul (4.5-11.0)
[2017-11-22 08:50] LABS: ALB/GLOB RATIO 0.6 (1.1-1.8); ALBUMIN 2.6 g/dL (3.0-4.8); ALT/SGPT 22 U/L (7-56); AST/SGOT 41 U/L (17-59); BLOOD UREA NITROGEN 7 mg/dL (7-21); CALCIUM 8.5 mg/dL (8.4-10.5); GFR NON-AFRICAN AMERICAN > 60
[2017-11-22] MEDS: Insulin Reg-MEDIUM-Coverage SC SCH ×2 (09:29→11:53)
[2017-11-22] MEDS: Pantoprazole 40 mg EC Tab PO SCH (09:31)
[2017-11-22 09:36] VITALS: BP 107/60
[2017-11-22] MEDS ORDERED: MethylPREDNISolone 40 mg Vial IVP ONE (10:02)
--- NOTE | 2017-11-22 10:15 | PN ---
DATE: 11/21/2017 DAILY PROGRESS NOTE The patient is a 62-year-old male with a history of hypertension, [id number] diabetes mellitus, hypercholesterolemia, coronary artery disease, status post coronary artery bypass grafting, status post bioprosthetic valve replacement with a history of alcoholic cirrhosis, status post TIPS procedure here in 05/2017. He was admitted with neck swelling, sore throat and sepsis. Cultures have been negative. He was treated with vancomycin and Merrem during the hospital stay. He developed ecchymotic lesions on the lower extremities. The testing ruled out DIC, the lesions were suggestive of Osler nodes and Janeway lesions. We were concerned of sepsis and bacterial endocarditis. The cultures have been negative; however, the patient has been on antibiotics. Echocardiogram was negative for valvular vegetations. Earlier today, he underwent transthoracic echocardiography. I spoke with Dr. Scanlon, his manager appointment and the PITER was negative, no vegetations were seen. Yesterday he underwent biopsy of the skin lesions to rule out Osler nodes, Janeway lesions, versus rheumatologic connective tissue disease. I saw the patient in the Recovery Room status post PITER. He was awake, alert and oriented. He was in good spirits. He was glad to hear that the PITER was negative. We are continuing with his vancomycin and Merrem, awaiting results of the skin biopsy. The patient will be continue to be followed closely and will be reevaluated in the morning. Grant Zendejas MD
--- NOTE | 2017-11-22 11:34 | CP.PCM.PN ---
<Coy Ferrari - Last Filed: 11/22/17 11:31> Subjective - Date & Time of Evaluation Date of Evaluation: 11/22/17 Time of Evaluation: 11:31 - Subjective Subjective: GI Fellow PGY4 Patient is more awake today. No confusion. He had BM yesterday. Making good urine. No fever. Leg pain improving. 5pt ROS neg except for above. Objective - Vital Signs/Intake and Output Vital Signs (last 24 hours): Temp Pulse Resp BP Pulse Ox 98.1 F 97 H 20 107/60 98 11/22/17 08:31 11/22/17 08:31 11/22/17 08:31 11/22/17 09:30 11/22/17 08:31 - Medications Medications: Current Medications Doxycycline Hyclate (Doryx) 100 mg PO Q12 KEKE PRN Reason: Protocol Last Admin: 11/22/17 09:26 Dose: 100 mg Furosemide (Lasix) 40 mg PO DAILY [facility] Last Admin: 11/22/17 09:30 Dose: 40 mg Heparin Sodium (Porcine) (Heparin) 5,000 units SC Q8 KEKE PRN Reason: Protocol Last Admin: 11/22/17 05:28 Dose: 5,000 units Meropenem (Merrem Iv 1 Gm Premix) 50 mls @ 100 mls/hr IVPB Q8 KEKE PRN Reason: Protocol Stop: 11/23/17 08:04 Last Admin: 11/22/17 05:27 Dose: 100 mls/hr Sodium Chloride (Sodium Chloride 0.45%) 1,000 mls @ 80 mls/hr IV .[id number] [facility] Last Admin: 11/22/17 02:30 Dose: 80 mls/hr Insulin Human Regular (Humulin R Med) 0 units SC ACHS [facility] PRN Reason: Protocol Last Admin: 11/22/17 09:29 Dose: Not Given Lactulose (Enulose) 30 gm PO BID [facility] Last Admin: 11/22/17 09:27 Dose: 30 gm Metformin HCl (Glucophage) 500 mg PO DAILY [facility] Last Admin: 11/22/17 09:28 Dose: 500 mg Oxycodone HCl (Oxycodone Immediate Release Tab) 10 mg PO Q6H PRN PRN Reason: Pain, severe (8-10) Last Admin: 11/22/17 05:46 Dose: 10 mg Pantoprazole Sodium (Protonix Ec Tab) 40 mg PO ACB KEKE Last Admin: 11/22/17 09:31 Dose: 40 mg Prednisone (Prednisone Tab) 20 mg PO BID KEKE Rifaximin (Xifaxan) 550 mg PO BID KEKE PRN Reason: Protocol Last Admin: 11/22/17 09:32 Dose: 550 mg Tramadol HCl (Ultram) 50 mg PO TID PRN PRN Reason: Pain, moderate (4-7) Last Admin: 11/18/17 18:31 Dose: 50 mg - Labs Labs: 11/22/17 08:30 11/22/17 08:30 PT 14.4 SECONDS (9.4-12.5) H 11/15/17 12:55 INR 1.25 11/15/17 12:55 APTT 28.0 Seconds (25.1-36.5) 11/15/17 12:55 - Constitutional Appears: No Acute Distress, Chronically Ill - Head Exam Head Exam: NORMAL INSPECTION - Eye Exam Eye Exam: Normal appearance - Respiratory Exam Respiratory Exam: Clear to Ausculation Bilateral, NORMAL BREATHING PATTERN - Cardiovascular Exam Cardiovascular Exam: REGULAR RHYTHM - GI/Abdominal Exam GI & Abdominal Exam: Soft, Normal Bowel Sounds. absent: Tenderness - Extremities Exam Extremities Exam: Joint Swelling. absent: Normal Inspection Additional comments: Improving rash, edema - Neurological Exam Neurological Exam: Alert, Awake, Oriented x3 Assessment and Plan - Assessment and Plan (Free Text) Assessment: 62 year old male with a past medical history significant for decompensated liver cirrhosis s/p TIPS with associated esophageal varices and portal hypertensive gastropathy, CAD s/p CABG, s/p valve replacement, HLD, HTN, DM2 , GERD and gout who presented with neck swelling and dysphagia of four days duration. GI was consulted as patient is known to Dr. Rosen due to his history of liver cirrhosis. #Presumed endocarditis #Cirrhosis s/p TIPS. Hx of HE, massive ascites. Plan: -CT Abdomen/Pelvis showed TIPS shunt in place with no evidence of static mass or perihepatic fluid -U/S abd of TIPS is normal -Current MELD Score: 10 -Continue Lasix, Lactulose. If he develops worsening ascites, start aldactone 50mg. -Recommend d/c IVF as tolerating diet. -Continue Xifaxin to prevent hepatic encephalopathy (high risk) -Regular Diet -Continue daily PPI -sq heparin for DVT prophylaxis -Close monitoring of electrolytes and CBC and liver function tests -Patient to undergo Bacterial Endocarditis vs rheum. workup including PITER, skin biopsy, blood work. -LFTs will need to be followed as outpt while on Doxycycline -Recommend avoiding metformin in cirrhotic patient <Jessika,Kovil V - Last Filed: 11/24/17 01:06> Objective - Vital Signs/Intake and Output Vital Signs (last 24 hours): Temp Pulse Resp BP Pulse Ox 98.1 F 97 H 20 107/60 98 11/22/17 08:31 11/22/17 08:31 11/22/17 08:31 11/22/17 09:30 11/22/17 08:31 - Labs Labs: 11/22/17 08:30 11/22/17 08:30 PT 14.4 SECONDS (9.4-12.5) H 11/15/17 12:55 INR 1.25 11/15/17 12:55 APTT 28.0 Seconds (25.1-36.5) 11/15/17 12:55 Attending/Attestation - Attestation I have personally seen and examined this patient.: Yes I have fully participated in the care of the patient.: Yes I have reviewed all pertinent clinical information, including history, physical exam and plan: Yes Notes (Text): This is a delayed addendum to GI progress report dictated by the GI Fellow.The patient was seen and examined earlier. Medical records, lab studies, imagings were reviewed. Last 24 hours events reviewed. 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
[2017-11-22] MEDS ORDERED: cefTRIAXone 1 gm 1 GM/100 ML BAG IVPB SCH (12:15)
--- NOTE | 2017-11-23 08:53 | DS ---
HISTORY OF PRESENT ILLNESS: This is one of the more difficult and complex cases I have seen in some time. This is a 62-year-old man I have known since we were in grad school together many years ago. Patient is status post recent (within the past year) coronary artery bypass graft and aortic valve replacement, at which time he developed worsening cirrhosis with massive ascites, and recently underwent a TIPS procedure with dramatic improvement and ascites. He was doing rather well at home. He is no longer drinking, does not smoke. 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 On , prior to the Sunday admission, the patient developed rather severe right knee pain. The pain was in the posterior aspect of the knee. He called the office, was told he needed to be seen, went to a [facility]. Venous Doppler's were done which were negative, and the patient was discharged with NSAIDs. Symptoms subsided. On Sunday evening, he developed sore throat, which worsened through the course of the day Sunday. On Sunday, he called the office and amoxicillin 250 mg t.i.d. was prescribed, but he only took one dose after getting it on Sunday morning. On Sunday, the sore throat had developed rather significant left-sided neck swelling and pain, prompting him to come to the emergency room. I saw him in the emergency room. Of interest was that the pharynx was clear. There was no erythema or swelling. There were no signs of peritonsillar abscess. There was no significant adenopathy in the neck, but there was a large area of soft tissue swelling in the left lateral neck that was exquisitely tender to touch. Exam of the knee showed a small amount of fusion posteriorly, and a Raphael's cyst. By now, the knee had become nontender and not painful. On labs, the white count was elevated. Sed rate was over 100. Multitude of diagnoses were entertained ranging from pharyngitis, abscess, gout, and autoimmune causes for his elevated sed rate. He was started on IV antibiotics. Because of the possibilities of the gout and airway with neck swelling, a dose of 40 mg IV solu-medrol was given that admitting night. On Sunday, he developed purpuric lesions over the lower extremities. By , morning when I saw him next, the lesions were exquisitely painful, painful purpuric nodules of the lower extremities, there were multiple. There were other nontender areas. As noted, there were no other similar lesions, Osler's nodes or Janeway lesions in the upper extremities. Because of the concern of his prosthetic valve and septic emboli, a stat echo and Cardiology consult was requested. Later that day, I spoke with Dr. Suggs. The echocardiogram was a good quality chest with normal-appearing valves. The case was discussed at length with the Infectious Diseases consultants, Dr. Dallas and Dr. Seals. They requested ENT to evaluate, even through the CT scan of the soft tissue of the neck and ultrasound did not show any sings of abscess or lymphadenopathy, and this was all soft tissue swelling. Ultrasound of the abdomen and negative CT scan was done that was non-revealing. Upper extremity ultrasound and neck soft tissue ultrasound was done, as one of the radiologists was concerned with jugular thrombosis. MRI of the neck was done, requested by ENT. leather repairer were asked to proceed with PITER and revealed a negative echo. Surgical consultation was requested by Dr. Mckeon for a biopsy of one of the lesions to evaluate for Osler's nodes. Oncology consultation was requested with possibility of immune complex deposition. Unfortunately there is no [facility] on staff at our institution. Multiple conversations were held between myself and all the consultants on numerous occasions. Blood cultures have been done that were remaining negative for 5 days during the course of the hospital stay. The patient always remained afebrile after his initial white blood cell count of 16.5. Within the next 2 days, his white count fell and remained abnormal. H and H stayed in the 10 and 30 range. Sed rate remained around 95. MCV was normal in the 90 to 91 range. Coags were normal. Fibrinogen was slightly elevated at 419 and D-dimer was elevated at 3100. Chemistries requested at the hospital stay, started off with slightly high potassium at 5.3, but that was relatively unremarkable, perhaps due to his Aldactone and dehydration at that time. BUN and creatinine on admission were 12 and 0.8. Sugars were elevated and fluctuated at times quite widely with the IV fluids and that initial dose of steroids. Bilirubin was in the 2.73 range. Alkaline phosphatase was only minimally elevated at 130. Albumin was low at 2.3. Urine showed some blood, was dark and concentrated on admission with specific gravity of 1.020. A huge battery of immunology tests were done including rheumatoid factor, c-ANCA and ANCA screen, which were negative. Triptinase 3 which was less than 1 negative. Thyroperoxidase was negative. Beta 2 glycoprotein, antiphospholipid, anticardiolipin, and compliment levels were all normal except for a slightly low C3 compliment at 79, with the normal range of 88 to 165. The culture negative endocarditis workup was done including the nonreactive RPR and negative Bartonella, Brucella antibodies, trichomonas, , hepatitis B, hepatitis C, Histoplasma, HIV, Legionella and Q fever, group A strep were all negative. C. pneumoniae was positive for IgG, IgA and IgM. Essential blood cultures remained negative after 5 days. Lab was asked to keep them for an extended period of time. GI had been consulted through the course of the hospital stay with question of cirrhosis-related chronic globulin immune complex disease, presenting as Osler's nodes. With the negative workup as outlined above, the diagnoses came down to a nonspecific autoimmune vasculitis. An additional dose of solu-medrol IV was given, and patient was started on oral prednisone. By that time, he had already improved clinically. He was adequately hydrated. There was no significant recurrence of his ascites. He was in good spirits. The biggest setback was the purpuric Osler's nodes on his lower extremities, that had progressed and blistered, creating the need for wound care. His feet were still somewhat painful, and therefore ambulation was difficult, and arrangements were made for him to go to the transitional care unit where the remaining active consultants would be able to keep a close eye on him. We will follow his labs and sed rate during the course of his steroid treatment. He will probably follow up with [facility] after hospitalization. I will put together in a data pack of this hospital stay and results of the workup, and we will follow him on TCU. FINAL DISCHARGE DIAGNOSES: 1. 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 2. Bacterial endocarditis is an unlikely diagnosis this hospital stay. 3. Prosthetic aortic heart valve. 4. Coronary artery disease, status post coronary artery bypass graft. 5. Cirrhosis. 6. Ascites. 7. Status post transjugular intrahepatic portosystemic shunt procedure. 8. Diabetes. 9. Leg wounds post deterioration of Osler's nodes. PLAN: Patient will go to transitional care. We await final pathology and histopathology on the surgical specimen. Terrence Zendejas MD
== END 2017-11-22 14:47 | DRG 546 ==
LOC: ED 14:44 → ERH 17:07 → 2RNO 20:21 → 3RNO 11-19 22:25
PROVIDERS: ADMIT Internal Medicine; ATTEND Internal Medicine
PROC: 0HBKXZX Excision of Right Lower Leg Skin, External Approach, Diagnostic (ICD-10-PCS; principal; 2017-11-20)
PROC: B24BZZ4 Ultrasonography of Heart with Aorta, Transesophageal (ICD-10-PCS; 2017-11-21)
DX: I77.6 Arteritis, unspecified (principal); K76.6 Portal hypertension; D64.9 Anemia, unspecified; D69.6 Thrombocytopenia, unspecified; E11.9 Type 2 diabetes mellitus without complications; E78.00 Pure hypercholesterolemia, unspecified; E78.5 Hyperlipidemia, unspecified; E86.0 Dehydration; E87.5 Hyperkalemia; I10 Essential (primary) hypertension; I25.10 Atherosclerotic heart disease of native coronary artery without angina pectoris; I25.2 Old myocardial infarction; I35.0 Nonrheumatic aortic (valve) stenosis; I80.8 Phlebitis and thrombophlebitis of other sites; J02.0 Streptococcal pharyngitis; K70.31 Alcoholic cirrhosis of liver with ascites; K21.9 Gastro-esophageal reflux disease without esophagitis; K31.89 Other diseases of stomach and duodenum; L98.9 Disorder of the skin and subcutaneous tissue, unspecified; M10.9 Gout, unspecified; M19.90 Unspecified osteoarthritis, unspecified site; M71.20 Synovial cyst of popliteal space [Baker], unspecified knee; Z76.82 Awaiting organ transplant status; Z79.82 Long term (current) use of aspirin; Z82.49 Family history of ischemic heart disease and other diseases of the circulatory system; Z87.11 Personal history of peptic ulcer disease; Z87.891 Personal history of nicotine dependence; Z95.1 Presence of aortocoronary bypass graft; Z95.3 Presence of xenogenic heart valve

== ENCOUNTER 2017-12-22 21:11 | Emergency (ER) | payer BC ==
--- NOTE | 2017-12-22 21:38 | ED PDOC ---
Arrival/HPI - General Chief Complaint: Weakness/Neurological Deficit Time Seen by Provider: 12/22/17 21:14 Historian: Patient, Spouse - History of Present Illness Narrative History of Present Illness (Text): 12/22/17 21:38 62 year old male, whose past medical history includes Autoimmune vasculitis, CAD, CABG, Cirrhosis waiting on liver transplant, Ascites s/p TIPS procedure, diabetes, leg wounds secondary to Osler nodes, presents to the emergency department by EMS, accompanied by for evaluation of periods of confusion and AMS. As per , patient has been sleeping more than usual. Patient denies any symptoms currently. Patient denies any fever, chills, chest pain, shortness of breath, nausea, vomiting, diarrhea, urinary symptoms, back pain, neck pain, headache, dizziness, or any other complaints. PMD: Dr. Zendejas Symptom Onset: Gradual Symptom Course: Unchanged Activities at Onset: Light Context: Home Past Medical History - Provider Review Nursing Documentation Reviewed: Yes - Infectious Disease Hx of Infectious Diseases: None - Cardiac Hx Cardiac Disorders: Yes Hx Angina: No Hx Cardiac Arrhythmia: No Hx Circulatory Problems: No Hx Congestive Heart Failure: No Hx Hypertension: Yes - Pulmonary Hx Respiratory Disorders: No - Neurological Hx Transient Ischemic Attacks (TIA): Yes - HEENT Hx HEENT Disorder: Yes - Endocrine/Metabolic Hx Diabetes Mellitus Type 2: Yes - Hematological/Oncological Hx Blood Transfusions: No Hx Blood Transfusion Reaction: No - Musculoskeletal/Rheumatological Hx Falls: No - Gastrointestinal Other/Comment: Liver problems - Genitourinary/Gynecological Hx Reproductive Disorders: No - Psychiatric Hx Physical Abuse: No Hx Substance Use: No - Surgical History Hx Cardiac Catheterization: No Hx Coronary Stent: Yes Hx Valve Replacement: Yes - Anesthesia Hx Anesthesia Reactions: No Hx Malignant Hyperthermia: No - Suicidal Assessment Feels Threatened In Home Enviroment: No Family/Social History - Physician Review Nursing Documentation Reviewed: Yes Family/Social History: No Known Family HX Smoking Status: Former Smoker Hx Alcohol Use: No Hx Substance Use: No Allergies/Home Meds Allergies/Adverse Reactions: Allergies No Known Allergies Allergy (Verified 11/22/17 15:09) Home Medications: Home Meds Medication Instructions Recorded Confirmed RX: Aspirin [Adult Low Dose 81 mg PO DAILY 06/12/16 12/22/17 Aspirin EC] RX: Allopurinol [Zyloprim] 100 mg PO DAILY 04/10/17 12/22/17 RX: Alprazolam [Xanax] 0.5 mg PO Q12H PRN 04/10/17 12/22/17 RX: Pantoprazole [Protonix EC Tab] 40 mg PO DAILY 04/10/17 12/22/17 RX: metFORMIN [glucOPHAGE] 500 mg PO DAILY 04/10/17 12/22/17 RX: Rifaximin [Xifaxan] 1 tab PO Q12H 11/13/17 12/22/17 Review of Systems - Physician Review All systems were reviewed & negative as marked: Yes - Review of Systems Constitutional: absent: Fevers, Other (Chills) Respiratory: absent: SOB Cardiovascular: absent: Chest Pain Gastrointestinal: absent: Diarrhea, Nausea, Vomiting Genitourinary Male: absent: Dysuria, Frequency Musculoskeletal: absent: Back Pain, Neck Pain Neurological: Other (Confusion and AMS). absent: Headache, Dizziness Physical Exam Vital Signs Reviewed: Yes Vital Signs Temp Pulse Resp BP Pulse Ox 12/22/17 21:29 99.1 F 72 18 109/68 98 Temperature: Afebrile Blood Pressure: Normal Pulse: Regular Respiratory Rate: Normal Appearance: Positive for: Well-Appearing, Non-Toxic, Comfortable Pain Distress: None Mental Status: Positive for: other (Alert and Oriented to person and place. ? time) - Systems Exam Head: Present: Atraumatic, Normocephalic Pupils: Present: PERRL Extroacular Muscles: Present: EOMI Conjunctiva: Present: Normal Mouth: Present: Moist Mucous Membranes Neck: Present: Normal Range of Motion Respiratory/Chest: Present: Clear to Auscultation, Good Air Exchange. No: Respiratory Distress, Accessory Muscle Use Cardiovascular: Present: Regular Rate and Rhythm, Normal S1, S2. No: Murmurs Abdomen: No: Tenderness, Distention, Peritoneal Signs Back: Present: Normal Inspection Upper Extremity: Present: Normal Inspection. No: Cyanosis, Edema Lower Extremity: Present: Other (old leg wound right lower leg). No: Edema Neurological: Present: GCS=15, CN II-XII Intact, Speech Normal Skin: Present: Warm, Dry, Normal Color. No: Rashes Psychiatric: Present: Alert (Alert and Oriented to person and place. ? time), Normal Insight, Normal Concentration Medical Decision Making ED Course and Treatment: 12/22/17 21:38 Impression: 62 year old male presents for evaluation of periods of confusion and AMS. Plan: -- VBG -- EKG -- Labs -- Chest X-ray -- Head CT -- VBG -- Enulose -- Reassess and disposition Prior Visits: Notes and results from previous visits were reviewed. Patient was last seen in the emergency department on 11/13/17 presents complaining of generalized weakness for the past 3 days. Patient was admitted. Progress Notes: 12/23/17 00:15 CXR Impression: As read by me, no acute process. 12/23/17 00:51 EKG shows NSR at 66 BPM with non-specific ST/T wave change. Interpreted by me. 12/23/17 02:[address] Grant Zendejas who is aware and agrees with the plan. Accepts patient into his service for observation. Request Dr. Ventura for consult. EXAM: CT Head w/o contrast SIGN OUT: 12/23/17 2:36 BY: Jorge Allan M.D. IMPRESSION: 1. Age-approproate cerebellar and cerebral atrophy 2. Mild chronic microvascular disease 3. No evidence of acute intracranial pathology. - Lab Interpretations I have reviewed the lab results: Yes - RAD Interpretation Radiology Orders: 12/22/17 21:33 CHEST PORTABLE [RAD] Stat - EKG Interpretation Interpreted by ED Physician: Yes Type: 12 lead EKG - Scribe Statement The provider has reviewed the documentation as recorded by the Berylibe Madonna Capone Provider Scribe Attestation: All medical record entries made by the Scribe were at my direction and personally dictated by me. I have reviewed the chart and agree that the record accurately reflects my personal performance of the history, physical exam, medical decision making, and the department course for this patient. I have also personally directed, reviewed, and agree with the discharge instructions and disposition. Disposition/Present on Arrival - Present on Arrival Any Indicators Present on Arrival: No History of DVT/PE: No History of Uncontrolled Diabetes: No Urinary Catheter: No History of Decub. Ulcer: No History Surgical Site Infection Following: None - Disposition Have Diagnosis and Disposition been Completed?: Yes Diagnosis: Altered mental status Disposition: HOSPITALIZED Disposition Time: 02:37 Patient Plan: Observation Condition: STABLE
[2017-12-22 22:30] LABS: VENOUS BLOOD GAS BASE EXCESS 1.9 mmol/L (0.0-2.0); VENOUS BLOOD GAS PO2 38 mm/Hg (30-55); VENOUS BLOOD PH 7.42 (7.32-7.43)
[2017-12-22 22:37] LABS: HEMOGLOBIN 12.8 g/dL (14.0-18.0); MEAN CELL VOLUME 97.1 fl (80.0-105.0); MEAN CORPUSCULAR HEMOGLOBIN 33.3 pg (25.0-35.0); MEAN CORPUSCULAR HGB CONC 34.3 g/dl (31.0-37.0); RBC 3.84 10^6/uL (3.5-6.1); RED CELL DISTRIBUTION WIDTH 15.8 % (11.5-14.5); WHITE BLOOD COUNT 8.6 10^3/ul (4.5-11.0)
[2017-12-22 22:46] LABS: INR 1.03; PARTIAL THROMBOPLASTIN TIME 29.6 Seconds (25.1-36.5); PROTHROMBIN TIME 11.7 SECONDS (9.4-12.5)
[2017-12-22 23:18] LABS: ALB/GLOB RATIO 0.8 (1.1-1.8); ALBUMIN 2.8 g/dL (3.0-4.8); ALT/SGPT 29 U/L (7-56); AST/SGOT 36 U/L (17-59); BLOOD UREA NITROGEN 18 mg/dL (7-21); CALCIUM 9.2 mg/dL (8.4-10.5); GFR NON-AFRICAN AMERICAN > 60
[2017-12-22 23:25] LABS: TROPONIN I < 0.01 ng/mL
--- NOTE | 2017-12-23 09:44 | CT ---
Date of service: 12/23/2017 PROCEDURE: CT HEAD WITHOUT CONTRAST. HISTORY: ams COMPARISON: 11/16/2017 TECHNIQUE: Axial computed tomography images were obtained through the head/brain without intravenous contrast. Radiation dose: Total exam DLP = 1002 mGy-cm. This CT exam was performed using one or more of the following dose reduction techniques: Automated exposure control, adjustment of the mA and/or kV according to patient size, and/or use of iterative reconstruction technique. FINDINGS: HEMORRHAGE: No intracranial hemorrhage. BRAIN: No mass effect or edema. No atrophy or chronic microvascular ischemic changes. VENTRICLES: Unremarkable. No hydrocephalus. CALVARIUM: Unremarkable. PARANASAL SINUSES: Unremarkable as visualized. No significant inflammatory changes. MASTOID AIR CELLS: Unremarkable as visualized. No inflammatory changes. OTHER FINDINGS: The report concurs with the preliminary [facility] report IMPRESSION: No acute intracranial abnormalities
[2017-12-23 10:12] VITALS: PULSE 78
--- NOTE | 2017-12-23 10:28 | RAD ---
Date of service: 12/22/2017 HISTORY: ams COMPARISON: 11/13/2017 FINDINGS: LUNGS: There is linear atelectasis in the left lower lobe. PLEURA: No significant pleural effusion identified, no pneumothorax apparent. CARDIOVASCULAR: Normal. OSSEOUS STRUCTURES: Sternal wires VISUALIZED UPPER ABDOMEN: Normal. OTHER FINDINGS: None. IMPRESSION: No active disease.
[2017-12-23 12:01] VITALS: BMI 26.0
[2017-12-23 12:03] VITALS: RESP 18
[2017-12-23 12:37] VITALS: BP 110/56; TEMP 98.4; O2SAT 97
--- NOTE | 2017-12-23 13:05 | CARD ---
APPROVED REPORT Date of service: 12/23/2017 EKG Measurement Heart [id number] <Conclusion> Normal sinus rhythm Normal Electrocardiogram
== END 2017-12-23 12:36 | disposition home or self-care (01) ==
LOC: ED 21:11 → ERH 12-23 02:38 → UNDOADMOB 12-23 02:38 → ERH 12-23 12:36
DX: R41.82 Altered mental status, unspecified (principal); I25.10 Atherosclerotic heart disease of native coronary artery without angina pectoris; Z95.1 Presence of aortocoronary bypass graft; E11.9 Type 2 diabetes mellitus without complications

== ENCOUNTER 2018-03-21 11:00 | Outpatient (CLI) | payer BC | END 2018-03-21 11:01 | disposition home or self-care (01) | LOC: RAD 11:00 ==